=== PATIENT | female | born 1970 | race African-American/Black ===

== ENCOUNTER 2019-05-17 10:38 | Emergency (ER) | payer OTHER ==
[~2019-05-17] VITALS: Ht 154.9 cm; Wt 90.7 kg
[2019-05-17 10:50] VITALS: BP 140/87
[2019-05-17 11:41] LABS: Urine Bacteria NONE SEEN /hpf (None Seen); Urine Blood TRACE /uL (Negative); Urine Hyaline Cast FEW /lpf (0 - 2); Urine Specific Gravity 1.023 (1.001-1.035); Urine WBC <1 /hpf (0 - 5)
== END 2019-05-17 13:24 | disposition home or self-care (01) ==
LOC: ER 10:38
DX: S29.012A Strain of muscle and tendon of back wall of thorax, initial encounter (principal); J45.909 Unspecified asthma, uncomplicated; E11.9 Type 2 diabetes mellitus without complications; E78.5 Hyperlipidemia, unspecified; I10 Essential (primary) hypertension; Z86.73 Personal history of transient ischemic attack (TIA), and cerebral infarction without residual deficits; W01.198A Fall on same level from slipping, tripping and stumbling with subsequent striking against other object, initial encounter; Y93.89 Activity, other specified; Y99.8 Other external cause status; Y92.89 Other specified places as the place of occurrence of the external cause
CPT/HCPCS: 72100; 81001; 81025; 93005

== ENCOUNTER 2019-05-20 09:20 | Emergency (ER) | payer OTHER ==
[~2019-05-20] VITALS: Ht 154.9 cm; Wt 86.2 kg
[2019-05-20 10:06] LABS: Basophils % (auto) 0.9 % (0.0-2.0); Eosinophils # (auto) 0.2 uL; Hemoglobin 13.2 g/dL (12.2-16.2); Lymphocytes # (auto) 1.1 uL; Monocytes # (auto) 0.5 uL
[2019-05-20] MEDS ORDERED: SODIUM CHLORIDE 0.9% 1,000 ML IV ONE (10:06)
[2019-05-20 10:08] LABS: Basophils # (auto) 0.1 uL; Eosinophils % (auto) 2.9 % (0.0-7.0); Hematocrit 41.4 % (36.0-46.0); Lymphocytes % (auto) 18.5 % (10.0-50.0); Mean Corpuscular Volume 81.3 fL (80.0-100.0); Monocytes % (auto) 8.1 % (0.0-12.0); Neutrophils # (auto) 4.1 uL; Neutrophils % (auto) 69.6 % (37.0-80.0); Platelet Count (auto) 215 10^3/uL (140-450); White Blood Cell 5.8 10^3/uL (4.4-10.8)
[2019-05-20] MEDS ORDERED: MECLIZINE HCL 25 MG TAB PO ONE (10:15)
[2019-05-20 10:24] LABS: Albumin 3.4 g/dL (3.4-5.0); Anion Gap 6 (5-15); Blood Urea Nitrogen 10 mg/dL (7-18); Calcium 8.7 mg/dL (8.5-10.1); Carbon Dioxide 30 mmol/L (21-32); Chloride 104 mmol/L (98-107); Glucose 106 mg/dL (74-106); Potassium 3.2 mmol/L (3.5-5.1); Sodium 140 mmol/L (136-145)
[2019-05-20 10:29] LABS: Alanine Aminotransferase 76 U/L (13-56); Alkaline Phosphatase 53 U/L (45-117); Aspartate Aminotransferase 77 U/L (15-37); BUN/Creatinine Ratio 12.3; Bilirubin, Total 0.9 mg/dL (0.2-1.0); GFR African American 97 mL/min; GFR Non-African American 80 mL/min; Total Protein 8.3 g/dL (6.4-8.2)
[2019-05-20 11:44] VITALS: BP 154/90
[2019-05-20] MEDS ORDERED: POTASSIUM EFFERVESENT TAB 25 MEQ PO ONE (13:00)
== END 2019-05-20 13:07 | disposition home or self-care (01) ==
LOC: EDBD 09:20 → EDUNIT# 09:20 → ER 09:20
DX: R42 Dizziness and giddiness (principal); E87.6 Hypokalemia; R06.02 Shortness of breath; R11.2 Nausea with vomiting, unspecified; J45.909 Unspecified asthma, uncomplicated; E11.9 Type 2 diabetes mellitus without complications; E78.00 Pure hypercholesterolemia, unspecified; I10 Essential (primary) hypertension; Z86.73 Personal history of transient ischemic attack (TIA), and cerebral infarction without residual deficits
CPT/HCPCS: 36415; 71045; 80053; 84484; 85025; 93005; 96360; 96361; 99284; J7030; J8597

== ENCOUNTER 2019-08-17 11:03 | Emergency (ER) | payer MEDICAID, OTHER ==
[~2019-08-17] VITALS: Ht 154.9 cm; Wt 86.2 kg
[2019-08-17 11:36] LABS: Basophils # (auto) 0.1 uL; Basophils % (auto) 0.9 % (0.0-2.0); Eosinophils # (auto) 0.1 uL; Eosinophils % (auto) 1.5 % (0.0-7.0); Hematocrit 42.3 % (36.0-46.0); Hemoglobin 13.8 g/dL (12.2-16.2); Lymphocytes % (auto) 22.7 % (10.0-50.0); Mean Corpuscular Hgb Conc. 32.7 g/dL (32.0-36.0); Mean Corpuscular Volume 82.5 fL (80.0-100.0); Monocytes # (auto) 0.7 uL; Neutrophils % (auto) 66.9 % (37.0-80.0); Nucleated Red Blood Cells % 0.1 %; Platelet Count (auto) 234 10^3/uL (140-450); Red Blood Cells 5.12 10^6/uL (4.0-5.20); Red Cell Distribution Width 14.9 % (11.8-14.3)
[2019-08-17 11:59] LABS: Albumin 3.5 g/dL (3.4-5.0); Calcium 8.8 mg/dL (8.5-10.1); Potassium 3.7 mmol/L (3.5-5.1)
[2019-08-17 12:03] LABS: BUN/Creatinine Ratio 14.3; Bilirubin, Total 0.9 mg/dL (0.2-1.0); Total Protein 8.7 g/dL (6.4-8.2)
[2019-08-17 14:05] VITALS: BP 117/74
== END 2019-08-17 14:07 | disposition home or self-care (01) ==
LOC: ER 11:03
DX: R60.0 Localized edema (principal); M79.662 Pain in left lower leg; M79.661 Pain in right lower leg; M79.10 Myalgia, unspecified site; J45.909 Unspecified asthma, uncomplicated; E78.5 Hyperlipidemia, unspecified; Z86.73 Personal history of transient ischemic attack (TIA), and cerebral infarction without residual deficits
CPT/HCPCS: 36415; 80053; 85025; 93005; 93970

== ENCOUNTER → 2019-11-25 | Emergency (ER) | payer MEDICAID ==
[~2019-11-25] VITALS: Ht 154.9 cm; Wt 86.2 kg
[~2019-11-25] MED LIST: ALBUTEROL SULF 2.5 MG/0.5ML(0.5%) NEB SOLN NEB ONE; IPRATROPIUM BROM 0.5 MG/2.5ML INH SOL NEB ONE
[2019-11-25 07:53] VITALS: BP 130/70
== END | disposition home or self-care (01) ==
LOC: ER 06:13
DX: J45.909 Unspecified asthma, uncomplicated (principal); E11.9 Type 2 diabetes mellitus without complications; I10 Essential (primary) hypertension; M19.90 Unspecified osteoarthritis, unspecified site; Z86.73 Personal history of transient ischemic attack (TIA), and cerebral infarction without residual deficits
CPT/HCPCS: 71045; 82962; 94640; 99283; J7644

== ENCOUNTER → 2020-01-15 | Emergency (ER) | payer MEDICAID ==
[~2020-01-15] VITALS: Ht 177.8 cm; Wt 90.7 kg
[~2020-01-15] MED LIST changes: -ALBUTEROL SULF 2.5 MG/0.5ML(0.5%) NEB SOLN NEB ONE; -IPRATROPIUM BROM 0.5 MG/2.5ML INH SOL NEB ONE; +cloNIDine HCL 0.1 MG TAB PO ONE
[2020-01-15 14:03] LABS: Basophils # (auto) 0.1 10 ^3/uL (0-0.2); Eosinophils # (auto) 0 10 ^3/uL (0-0.8); Eosinophils % (auto) 0.5 % (0.0-7.0); Monocytes # (auto) 0.6 10 ^3/uL (0-1.3)
[2020-01-15 14:05] LABS: Basophils % (auto) 0.9 % (0.0-2.0); Hematocrit 44.6 % (36.0-46.0); Hemoglobin 14.4 g/dL (12.2-16.2); Lymphocytes # (auto) 1.2 10 ^3/uL (0.4-5.4); Lymphocytes % (auto) 18.2 % (10.0-50.0); Mean Corpuscular Hemoglobin 26.4 pg (28.0-32.0); Mean Corpuscular Hgb Conc. 32.2 g/dL (32.0-36.0); Monocytes % (auto) 8.9 % (0.0-12.0); Neutrophils # (auto) 4.7 10 ^3/uL (1.6-8.6); Neutrophils % (auto) 71.5 % (37.0-80.0); Nucleated Red Blood Cells % 0.3 %; Platelet Count (auto) 255 10^3/uL (140-450); Red Blood Cells 5.44 10^6/uL (4.0-5.20); Red Cell Distribution Width 16.4 % (11.8-14.3); White Blood Cell 6.6 10^3/uL (4.4-10.8)
[2020-01-15 14:10] LABS: Urine Bacteria NONE SEEN /hpf (None Seen); Urine Blood Negative /uL (Negative); Urine Specific Gravity 1.012 (1.001-1.035); Urine WBC <1 /hpf (0 - 5)
[2020-01-15 14:19] LABS: Albumin 3.5 g/dL (3.4-5.0); Anion Gap 5 (5-15); Blood Urea Nitrogen 9 mg/dL (7-18); Calcium 9.1 mg/dL (8.5-10.1); Carbon Dioxide 27 mmol/L (21-32); Chloride 106 mmol/L (98-107); Glucose 101 mg/dL (74-106); Magnesium 2.1 mg/dL (1.6-2.6); Potassium 4.3 mmol/L (3.5-5.1); Sodium 138 mmol/L (136-145)
[2020-01-15 14:21] LABS: Alanine Aminotransferase 68 U/L (13-56); Alkaline Phosphatase 119 U/L (45-117); Aspartate Aminotransferase 171 U/L (15-37); BUN/Creatinine Ratio 10.3; Bilirubin, Total 1.1 mg/dL (0.2-1.0); GFR African American 89 mL/min; GFR Non-African American 74 mL/min
[2020-01-15 15:00] VITALS: BP 124/70
== END | disposition home or self-care (01) ==
LOC: EDUNIT# 12:44 → EDBD 12:44 → ER 12:44
DX: I10 Essential (primary) hypertension (principal); R07.89 Other chest pain; E86.0 Dehydration; F41.8 Other specified anxiety disorders; R74.0 Nonspecific elevation of levels of transaminase and lactic acid dehydrogenase [LDH]; E11.9 Type 2 diabetes mellitus without complications; J45.909 Unspecified asthma, uncomplicated; Z86.73 Personal history of transient ischemic attack (TIA), and cerebral infarction without residual deficits; Z88.0 Allergy status to penicillin
CPT/HCPCS: 36415; 70450; 71046; 80053; 81001; 83735; 83880; 84484; 85025

== ENCOUNTER 2020-01-17 01:35 | Emergency (ER) | payer MEDICAID ==
[~2020-01-17] VITALS: Ht 154.9 cm; Wt 99.8 kg
[2020-01-17 02:30] LABS: Basophils # (auto) 0 10 ^3/uL (0-0.2); Basophils % (auto) 0.6 % (0.0-2.0); Eosinophils # (auto) 0.1 10 ^3/uL (0-0.8); Eosinophils % (auto) 1.2 % (0.0-7.0); Hematocrit 41.5 % (36.0-46.0); Hemoglobin 13.3 g/dL (12.2-16.2); Lymphocytes # (auto) 1.3 10 ^3/uL (0.4-5.4); Lymphocytes % (auto) 17.6 % (10.0-50.0); Mean Corpuscular Hemoglobin 26.4 pg (28.0-32.0); Mean Corpuscular Hgb Conc. 32.1 g/dL (32.0-36.0); Mean Corpuscular Volume 82.3 fL (80.0-100.0); Monocytes # (auto) 0.6 10 ^3/uL (0-1.3); Monocytes % (auto) 7.4 % (0.0-12.0); Neutrophils # (auto) 5.5 10 ^3/uL (1.6-8.6); Neutrophils % (auto) 73.2 % (37.0-80.0); Nucleated Red Blood Cells % 0.1 %; Platelet Count (auto) 233 10^3/uL (140-450); Red Blood Cells 5.04 10^6/uL (4.0-5.20); Red Cell Distribution Width 16.1 % (11.8-14.3); White Blood Cell 7.5 10^3/uL (4.4-10.8)
[2020-01-17] MEDS ORDERED: SODIUM CHLORIDE 0.9% 1,000 ML IV ONE ×3 (02:30→03:30)
[2020-01-17 02:52] LABS: Albumin 3.1 g/dL (3.4-5.0); Calcium 8.2 mg/dL (8.5-10.1); Potassium 3.8 mmol/L (3.5-5.1)
[2020-01-17 02:57] LABS: BUN/Creatinine Ratio 9.5; Bilirubin, Total 0.8 mg/dL (0.2-1.0); Total Protein 7.8 g/dL (6.4-8.2)
[2020-01-17 05:01] VITALS: BP 142/80
== END 2020-01-17 05:44 | disposition home or self-care (01) ==
LOC: EDBD 01:35 → ER 01:35
DX: S02.32XA Fracture of orbital floor, left side, initial encounter for closed fracture (principal); F10.129 Alcohol abuse with intoxication, unspecified; H10.33 Unspecified acute conjunctivitis, bilateral; Y90.9 Presence of alcohol in blood, level not specified; W18.39XA Other fall on same level, initial encounter; Y93.89 Activity, other specified; Y92.89 Other specified places as the place of occurrence of the external cause; Y99.8 Other external cause status
CPT/HCPCS: 36415; 70450; 71250; 72125; 74176; 80053; 80320; 84702; 85025; 99285; J7030

== ENCOUNTER → 2020-03-03 | Emergency (ER) | payer MEDICAID ==
[~2020-03-03] VITALS: Ht 165.1 cm; Wt 90.7 kg
[~2020-03-03] MED LIST changes: +IOHEXOL 300 MG/ML 100ML BOTTLE IJ ONE; +MORPHINE SULFATE 4 MG/ML SYR/VIAL IV ONE; +ONDANSETRON HCL 4 MG/2 ML VIAL IV ONE; +SODIUM CHLORIDE 0.9% 1,000 ML IV ONE; -cloNIDine HCL 0.1 MG TAB PO ONE
[2020-03-03 04:06] LABS: Urine Bacteria FEW /hpf (None Seen); Urine Blood Negative /uL (Negative); Urine Mucus FEW (None Seen); Urine Specific Gravity 1.011 (1.001-1.035); Urine WBC <1 /hpf (0 - 5)
[2020-03-03 04:59] LABS: Eosinophils # (auto) 0.1 10 ^3/uL (0-0.8); Lymphocytes # (auto) 1.1 10 ^3/uL (0.4-5.4); Monocytes # (auto) 0.5 10 ^3/uL (0-1.3); Red Cell Distribution Width 15.1 % (11.8-14.3)
[2020-03-03 05:02] LABS: Basophils # (auto) 0 10 ^3/uL (0-0.2); Basophils % (auto) 0.8 % (0.0-2.0); Eosinophils % (auto) 1.3 % (0.0-7.0); Hematocrit 43.2 % (36.0-46.0); Lymphocytes % (auto) 20.7 % (10.0-50.0); Mean Corpuscular Hemoglobin 26.8 pg (28.0-32.0); Mean Corpuscular Hgb Conc. 32.5 g/dL (32.0-36.0); Mean Corpuscular Volume 82.6 fL (80.0-100.0); Monocytes % (auto) 8.6 % (0.0-12.0); Neutrophils # (auto) 3.8 10 ^3/uL (1.6-8.6); Neutrophils % (auto) 68.6 % (37.0-80.0); Nucleated Red Blood Cells % 0.1 %; Platelet Count (auto) 228 10^3/uL (140-450); Red Blood Cells 5.24 10^6/uL (4.0-5.20); White Blood Cell 5.5 10^3/uL (4.4-10.8)
[2020-03-03 05:18] LABS: Chloride 108 mmol/L (98-107); Potassium 3.5 mmol/L (3.5-5.1); Sodium 140 mmol/L (136-145)
[2020-03-03 05:21] LABS: Alanine Aminotransferase 69 U/L (13-56); Albumin 3.3 g/dL (3.4-5.0); Amylase 87 U/L (25-115); Anion Gap 11 (5-15); BUN/Creatinine Ratio 12.2; Blood Urea Nitrogen 9 mg/dL (7-18); Calcium 8.5 mg/dL (8.5-10.1); Carbon Dioxide 21 mmol/L (21-32); GFR African American 107 mL/min; GFR Non-African American 89 mL/min; Glucose 101 mg/dL (74-106); Lipase 126 U/L (73-393)
[2020-03-03 05:27] LABS: Alkaline Phosphatase 103 U/L (45-117); Aspartate Aminotransferase 179 U/L (15-37); Bilirubin, Total 0.6 mg/dL (0.2-1.0); Total Protein 8.4 g/dL (6.4-8.2)
[2020-03-03 08:59] VITALS: BP 174/99
== END | disposition home or self-care (01) ==
LOC: EDUNIT# 02:11 → EDBD 02:21 → ER 02:21
DX: K80.20 Calculus of gallbladder without cholecystitis without obstruction (principal); R11.2 Nausea with vomiting, unspecified
CPT/HCPCS: 36415; 74177; 76705; 80053; 81001; 82150; 83605; 83690; 84484; 84702; 85025; 87086; 93005; 96361; 96374; 96375; 99285; J2270; J2405; J7030; Q9967

== ENCOUNTER 2020-06-12 10:25 | Emergency (ER) | payer MEDICAID ==
[~2020-06-12] VITALS: Ht 154.9 cm; Wt 95.7 kg
[2020-06-12] MEDS ORDERED: cloNIDine HCL 0.1 MG TAB PO ONE (12:30)
[2020-06-12] MEDS ORDERED: ACETAMINOPHEN 325 MG TAB PO ONE ×2 (12:44→12:45)
[2020-06-12 14:48] VITALS: BP 158/101
== END 2020-06-12 14:50 | disposition home or self-care (01) ==
LOC: ER 10:25
DX: S13.9XXA Sprain of joints and ligaments of unspecified parts of neck, initial encounter (principal); E78.5 Hyperlipidemia, unspecified; I10 Essential (primary) hypertension; Z88.0 Allergy status to penicillin; W01.0XXA Fall on same level from slipping, tripping and stumbling without subsequent striking against object, initial encounter; Y93.89 Activity, other specified; Y92.89 Other specified places as the place of occurrence of the external cause; Y99.8 Other external cause status
CPT/HCPCS: 70450; 72125; 93005

== ENCOUNTER 2021-01-22 09:46 | Emergency (ER) | payer MEDICAID ==
[~2021-01-22] VITALS: Ht 154.9 cm; Wt 99.8 kg
[2021-01-22 10:25] LABS: Urine Bacteria NONE SEEN /hpf (None Seen); Urine Blood TRACE /uL (Negative); Urine Mucus FEW (None Seen); Urine Specific Gravity 1.022 (1.001-1.035); Urine WBC 1 /hpf (0 - 5)
[2021-01-22 11:02] VITALS: BP 167/96
== END 2021-01-22 11:44 | disposition home or self-care (01) ==
LOC: ER 09:46
DX: M54.16 Radiculopathy, lumbar region (principal); I10 Essential (primary) hypertension; E78.5 Hyperlipidemia, unspecified; J45.909 Unspecified asthma, uncomplicated; Z88.0 Allergy status to penicillin
CPT/HCPCS: 72100; 81001

== ENCOUNTER 2021-09-03 18:48 | Inpatient (IN) | payer MEDICAID ==
[~2021-09-03] VITALS: Ht 154.9 cm; Wt 98.2 kg
[2021-09-03 20:20] LABS: Basophils # (auto) 0 10 ^3/uL (0-0.2); Basophils % (auto) 0.6 % (0.0-2.0); Eosinophils # (auto) 0.1 10 ^3/uL (0-0.8); Eosinophils % (auto) 0.8 % (0.0-7.0); Hematocrit 30.8 % (36.0-46.0); Hemoglobin 9.5 g/dL (12.2-16.2); Lymphocytes # (auto) 1.1 10 ^3/uL (0.4-5.4); Lymphocytes % (auto) 15.2 % (10.0-50.0); Mean Corpuscular Hemoglobin 23.4 pg (28.0-32.0); Mean Corpuscular Hgb Conc. 30.8 g/dL (32.0-36.0); Mean Corpuscular Volume 75.8 fL (80.0-100.0); Monocytes # (auto) 0.6 10 ^3/uL (0-1.3); Monocytes % (auto) 7.7 % (0.0-12.0); Neutrophils # (auto) 5.5 10 ^3/uL (1.6-8.6); Neutrophils % (auto) 75.7 % (37.0-80.0); Nucleated Red Blood Cells % 0.1 %; Red Blood Cells 4.06 10^6/uL (4.0-5.20); Red Cell Distribution Width 17.1 % (11.8-14.3); White Blood Cell 7.3 10^3/uL (4.4-10.8)
[2021-09-03 20:27] LABS: Albumin 3.5 g/dL (3.4-5.0); Calcium 8.7 mg/dL (8.5-10.1); Magnesium 2.5 mg/dL (1.6-2.6); Potassium 3.9 mmol/L (3.5-5.1)
[2021-09-03 20:33] LABS: BUN/Creatinine Ratio 8.1; Bilirubin, Total 0.6 mg/dL (0.2-1.0); Total Protein 8.3 g/dL (6.4-8.2)
[2021-09-04] MEDS ORDERED: hydrALAZINE HCL 20 MG/ML VL IV ONE ×2 (01:30→02:20)
[2021-09-04 01:43] LABS: Urine Bacteria FEW /hpf (None Seen); Urine Blood Negative /uL (Negative); Urine Hyaline Cast FEW /lpf (0 - 2); Urine Mucus FEW (None Seen); Urine Specific Gravity 1.018 (1.001-1.035); Urine WBC 2 /hpf (0 - 5)
[2021-09-04] MEDS ORDERED: TEMAZEPAM 15 MG CAP PO PRN (03:15)
[2021-09-04] MEDS ORDERED: LABETALOL HCL 5 MG/ML 4ML SYRINGE IV ONE (03:15)
[2021-09-04] MEDS ORDERED: ONDANSETRON HCL 4 MG/2 ML VIAL IV PRN (03:15)
[2021-09-04] MEDS: ACETAMINOPHEN 325 MG TAB PO PRN ×2 (03:37→08:45)
[2021-09-04] MEDS ORDERED: CLON0.1T PO (06:55)
[2021-09-04] MEDS ORDERED: ALBUAER3 IN (06:55)
[2021-09-04] MEDS ORDERED: AMLO-489 PO (06:55)
[2021-09-04] MEDS ORDERED: ATEN-60 PO (06:55)
[2021-09-04] MEDS ORDERED: CARI-277 PO (06:57)
[2021-09-04] MEDS ORDERED: VITA100T3 PO (06:57)
[2021-09-04] MEDS ORDERED: LORA-655 PO (06:57)
[2021-09-04] MEDS ORDERED: ASCO500T11 PO (06:57)
[2021-09-04 08:34] VITALS: BP 146/77
[2021-09-04] MEDS: ASPirin 81 mg TAB PO SCH (08:47)
[2021-09-04] MEDS: amLODIPine BESYLATE 5 MG TAB PO SCH (08:49)
[2021-09-04] MEDS: ATENOLOL 50 MG TAB PO SCH (08:49)
[2021-09-04] MEDS: PANTOPRAZOLE 40 MG TAB PO SCH (08:49)
[2021-09-04] MEDS: ENOXAPARIN SOD 40 MG/0.4 ML SYRINGE SC SCH (08:50)
[2021-09-04 13:00] VITALS: BP 147/89
[2021-09-04 17:06] VITALS: BP 161/92
[2021-09-04] MEDS: cloNIDine HCL 0.1 MG TAB PO PRN (17:19)
[2021-09-04] MEDS: ATORVASTATIN 20 MG TAB PO SCH (21:24)
[2021-09-04] MEDS: LISINOPRIL 20 MG TAB PO SCH (21:25)
[2021-09-04 22:00] VITALS: BP 141/95
[2021-09-05] VITALS (7 sets, daily range): BP systolic 140–156; BP diastolic 56–94
[2021-09-05 06:33] LABS: Basophils # (auto) 0 10 ^3/uL (0-0.2); Basophils % (auto) 0.5 % (0.0-2.0); Lymphocytes # (auto) 1.4 10 ^3/uL (0.4-5.4); Neutrophils % (auto) 59.3 % (37.0-80.0); Nucleated Red Blood Cells % 0.1 %
[2021-09-05 06:36] LABS: Eosinophils # (auto) 0.3 10 ^3/uL (0-0.8); Eosinophils % (auto) 4.6 % (0.0-7.0); Hemoglobin 8.9 g/dL (12.2-16.2); Lymphocytes % (auto) 25.8 % (10.0-50.0); Mean Corpuscular Hemoglobin 23.5 pg (28.0-32.0); Mean Corpuscular Hgb Conc. 30.9 g/dL (32.0-36.0); Monocytes # (auto) 0.5 10 ^3/uL (0-1.3); Monocytes % (auto) 9.8 % (0.0-12.0); Neutrophils # (auto) 3.2 10 ^3/uL (1.6-8.6); White Blood Cell 5.5 10^3/uL (4.4-10.8)
[2021-09-05 06:58] LABS: Mean Corpuscular Volume 76.2 fL (80.0-100.0)
[2021-09-05 07:07] LABS: BUN/Creatinine Ratio 10.8; Calcium 8.7 mg/dL (8.5-10.1); Potassium 3.9 mmol/L (3.5-5.1)
[2021-09-05] MEDS: ATENOLOL 50 MG TAB PO SCH (10:15)
[2021-09-05] MEDS: amLODIPine BESYLATE 5 MG TAB PO SCH (10:15)
[2021-09-05] MEDS: ASPirin 81 mg TAB PO SCH (10:15)
[2021-09-05] MEDS: PANTOPRAZOLE 40 MG TAB PO SCH (10:15)
[2021-09-05] MEDS: LISINOPRIL 20 MG TAB PO SCH ×2 (10:16→22:27)
[2021-09-05] MEDS: ENOXAPARIN SOD 40 MG/0.4 ML SYRINGE SC SCH (10:16)
[2021-09-05 11:34] LABS: Cholesterol 167 mg/dL (< 200)
[2021-09-05 11:37] LABS: HDL Cholesterol 40 mg/dL (40-59); LDL Cholesterol 96 mg/dL (< 100); Triglycerides 164 mg/dL (< 150)
[2021-09-05] MEDS: ACETAMINOPHEN 325 MG TAB PO PRN (18:22)
[2021-09-05] MEDS: cloNIDine HCL 0.1 MG TAB PO PRN (18:22)
[2021-09-05] MEDS: ATORVASTATIN 20 MG TAB PO SCH (22:27)
[2021-09-06] MEDS: ACETAMINOPHEN 325 MG TAB PO PRN (04:52)
[2021-09-06 05:00] VITALS: BP 146/90
[2021-09-06 08:00] VITALS: BP 135/72
[2021-09-06 09:00] VITALS: BP 135/72
[2021-09-06] MEDS: ASPirin 81 mg TAB PO SCH (09:57)
[2021-09-06] MEDS: ATENOLOL 50 MG TAB PO SCH (09:58)
[2021-09-06] MEDS: ENOXAPARIN SOD 40 MG/0.4 ML SYRINGE SC SCH (09:58)
[2021-09-06] MEDS: LISINOPRIL 20 MG TAB PO SCH (09:58)
[2021-09-06] MEDS: PANTOPRAZOLE 40 MG TAB PO SCH (09:58)
[2021-09-06] MEDS: amLODIPine BESYLATE 5 MG TAB PO SCH (09:58)
[2021-09-06 13:00] VITALS: BP 128/69
[2021-09-06 13:12] VITALS: BP 135/72
== END 2021-09-06 15:20 | disposition home or self-care (01) | DRG 198 ==
LOC: ER 18:50 → OVERFLOW 09-04 03:13 → WEST WING 09-04 05:55 → TELE-WESTW 09-05 21:49
PROVIDERS: ADMIT Nurse Practitioner; ATTEND Family Medicine
DX: I20.0 Unstable angina (principal); D64.9 Anemia, unspecified; E66.01 Morbid (severe) obesity due to excess calories; E78.5 Hyperlipidemia, unspecified; F12.90 Cannabis use, unspecified, uncomplicated; I10 Essential (primary) hypertension; J45.909 Unspecified asthma, uncomplicated; E78.00 Pure hypercholesterolemia, unspecified; F41.9 Anxiety disorder, unspecified; Z20.822 Contact with and (suspected) exposure to COVID-19; K57.90 Diverticulosis of intestine, part unspecified, without perforation or abscess without bleeding; Z80.0 Family history of malignant neoplasm of digestive organs; Z82.49 Family history of ischemic heart disease and other diseases of the circulatory system; Z88.5 Allergy status to narcotic agent; Z88.8 Allergy status to other drugs, medicaments and biological substances; Z68.41 Body mass index [BMI] 40.0-44.9, adult; Z88.0 Allergy status to penicillin
CPT/HCPCS: 36415; 71045; 74176; 80048; 80053; 80061; 81001; 83735; 84443; 84484; 85025; 87426; 93005; 93306; 96374; 96375; 96376; 99291; G0378; J3490

== ENCOUNTER 2023-12-25 06:25 | Inpatient (IN) | payer MEDICAID ==
[~2023-12-25] VITALS: Ht 154.9 cm; Wt 101.9 kg
[~2023-12-25 06:25] MED LIST changes: +ALBUAER3 IN; +AMLO1TAB22 PO; +ASCO500T11 PO; +ATEN-60 PO; +CARI-277 PO; +CLON0.1T PO; -IOHEXOL 300 MG/ML 100ML BOTTLE IJ ONE; +LORA-655 PO; -MORPHINE SULFATE 4 MG/ML SYR/VIAL IV ONE; -ONDANSETRON HCL 4 MG/2 ML VIAL IV ONE; -SODIUM CHLORIDE 0.9% 1,000 ML IV ONE; +VITA100T3 PO
[2023-12-25 07:02] LABS: Eosinophils # (auto) 0.3 10 ^3/uL (0-0.8); Neutrophils # (auto) 2.7 10 ^3/uL (1.6-8.6); Neutrophils % (auto) 41.8 % (37.0-80.0); White Blood Cell 6.5 10^3/uL (4.4-10.8)
[2023-12-25 07:05] LABS: Basophils # (auto) 0.1 10 ^3/uL (0-0.2); Basophils % (auto) 0.8 % (0.0-2.0); Hemoglobin 14.3 g/dL (12.2-16.2); Lymphocytes # (auto) 2.8 10 ^3/uL (0.4-5.4); Lymphocytes % (auto) 42.4 % (10.0-50.0); Mean Corpuscular Hemoglobin 25.8 pg (28.0-32.0); Mean Corpuscular Hgb Conc. 31.7 g/dL (32.0-36.0); Mean Corpuscular Volume 81.3 fL (80.0-100.0); Monocytes # (auto) 0.7 10 ^3/uL (0-1.3); Nucleated Red Blood Cells % 0.3 %; Red Blood Cells 5.54 10^6/uL (4.0-5.20); Red Cell Distribution Width 15.2 % (11.8-14.3)
[2023-12-25 07:27] LABS: Alanine Aminotransferase 58 U/L (7-40); Albumin 4.5 g/dL (3.2-4.8); Alkaline Phosphatase 94 U/L (46-116); Anion Gap 11 (5-15); Aspartate Aminotransferase 110 U/L (13-40); BUN/Creatinine Ratio 6.6 (10.0-20.0); Bilirubin, Total 0.5 mg/dL (0.2-1.0); Blood Urea Nitrogen 6 mg/dL (9-23); Calcium 9.3 mg/dL (8.5-10.1); Carbon Dioxide 21 mmol/L (20-30); Chloride 108 mmol/L (98-107); Glucose 113 mg/dL (74-106); Potassium 3.7 mmol/L (3.5-5.1); Sodium 140 mmol/L (136-145)
[2023-12-25] MEDS: NITROGLYCERIN 0.4 MG SL TAB SL ONE (08:25)
[2023-12-25] MEDS: ASPirin 325 MG TAB PO ONE (08:26)
[2023-12-25] MEDS: ONDANSETRON HCL 4 MG/2 ML VIAL IV ONE (08:34)
[2023-12-25] MEDS: MORPHINE SULFATE INJ 2 MG/ml SYRG IV ONE (08:35)
[2023-12-25] MEDS ORDERED: ONDANSETRON HCL 4 MG/2 ML VIAL IV PRN (11:15)
[2023-12-25] MEDS ORDERED: LORazepam 0.5 MG TAB PO PRN (11:15)
[2023-12-25] MEDS ORDERED: MORPHINE SULFATE INJ 2 MG/ml SYRG IV PRN (11:15)
[2023-12-25] MEDS ORDERED: NITROGLYCERIN 0.4 MG SL TAB SL PRN (11:15)
[2023-12-25] MEDS ORDERED: ALBUTEROL SULF 2.5 MG/0.5ML(0.5%) NEB SOLN NEB PRN (11:15)
[2023-12-25] MEDS ORDERED: CARISOPRODOL 350 MG TAB PO PRN (12:00)
[2023-12-25] MEDS: SODIUM CHLORIDE 0.9% 1,000 ML IV SCH (12:04)
[2023-12-25] MEDS: PANTOPRAZOLE 40 MG/10 ML VIAL INJ IV ONE (12:07)
[2023-12-25 12:20] LABS: LDL Cholesterol 123 mg/dL (< 100); Triglycerides 222 mg/dL (< 150)
[2023-12-25 12:22] LABS: Cholesterol 204 mg/dL (< 200); HDL Cholesterol 64 mg/dL (40-59)
[2023-12-25] MEDS: HYDROcodone-ACET 5/325MG TAB PO PRN (13:15)
[2023-12-25 18:14] VITALS: BP 154/88; PULSE 78; RESP 19; O2SAT 95
[2023-12-25 22:08] VITALS: O2SAT 99
[2023-12-25] MEDS: cloNIDine HCL 0.1 MG TAB PO SCH (22:34)
[2023-12-26 05:40] LABS: Basophils # (auto) 0 10 ^3/uL (0-0.2); Eosinophils # (auto) 0.1 10 ^3/uL (0-0.8); Hemoglobin 13.4 g/dL (12.2-16.2); Lymphocytes # (auto) 1.6 10 ^3/uL (0.4-5.4); Mean Corpuscular Hemoglobin 26.1 pg (28.0-32.0); Nucleated Red Blood Cells % 0.1 %; Red Cell Distribution Width 15.3 % (11.8-14.3); White Blood Cell 7.6 10^3/uL (4.4-10.8)
[2023-12-26 05:42] LABS: Basophils % (auto) 0.6 % (0.0-2.0); Eosinophils % (auto) 1.4 % (0.0-7.0); Hematocrit 41.7 % (36.0-46.0); Lymphocytes % (auto) 21.6 % (10.0-50.0); Mean Corpuscular Hgb Conc. 32.2 g/dL (32.0-36.0); Mean Corpuscular Volume 81.2 fL (80.0-100.0); Monocytes # (auto) 0.7 10 ^3/uL (0-1.3); Monocytes % (auto) 9.9 % (0.0-12.0); Neutrophils % (auto) 66.5 % (37.0-80.0); Red Blood Cells 5.13 10^6/uL (4.0-5.20)
[2023-12-26 05:57] LABS: Alanine Aminotransferase 36 U/L (7-40); Albumin 4.1 g/dL (3.2-4.8); Alkaline Phosphatase 79 U/L (46-116); Anion Gap 11 (5-15); Aspartate Aminotransferase 56 U/L (13-40); BUN/Creatinine Ratio 8.6 (10.0-20.0); Blood Urea Nitrogen 7 mg/dL (9-23); Calcium 9.6 mg/dL (8.5-10.1); Carbon Dioxide 22 mmol/L (20-30); Chloride 104 mmol/L (98-107); Glucose 107 mg/dL (74-106); Potassium 3.8 mmol/L (3.5-5.1); Sodium 137 mmol/L (136-145)
[2023-12-26 05:58] LABS: Bilirubin, Total 1.1 mg/dL (0.2-1.0); Total Protein 7.4 g/dL (5.7-8.2)
[2023-12-26 06:28] LABS: Amphetamine Screen, Urine Neg (NEGATIVE)
[2023-12-26 06:29] LABS: Barbiturate Scree,Urine Neg (NEGATIVE); Benzodiazephine Screen, Urine Neg (NEGATIVE); Cannabinoid Screen, Urine Neg (NEGATIVE); Cocaine Screen, Urine Neg (NEGATIVE); Opiate Scree,Urine Neg (NEGATIVE); Phencyclidine Screen, Urine Neg (NEGATIVE)
[2023-12-26 06:45] VITALS: O2SAT 94
[2023-12-26 08:00] VITALS: PULSE 73; RESP 16; O2SAT 93
[2023-12-26] MEDS: amLODIPine BESYLATE 5 MG TAB PO SCH (09:26)
[2023-12-26] MEDS: ASPirin 81 mg TAB PO SCH (09:26)
[2023-12-26] MEDS: PANTOPRAZOLE 40 MG/10 ML VIAL INJ IV SCH (09:26)
[2023-12-26] MEDS: ATENOLOL 25 MG TAB PO SCH (09:27)
[2023-12-26] MEDS: ENOXAPARIN SOD 40 MG/0.4 ML SYRINGE SC SCH (09:27)
[2023-12-26] MEDS: ASCORBIC ACID 500 MG TAB PO SCH (09:35)
[2023-12-26] MEDS: ACETAMINOPHEN 325 MG TAB PO PRN (11:38)
[2023-12-26] MEDS: hydrALAZINE HCL 20 MG/ML VL IV PRN (12:42)
[2023-12-26] MEDS ORDERED: MAALOX PLUS or MAALOX 30 ML PO PRN (13:30)
[2023-12-26 19:53] VITALS: BP 149/94; PULSE 99; RESP 18; TEMP 98.5; O2SAT 98
[2023-12-26 20:00] VITALS: BP 164/94; PULSE 101; PULSE 80; RESP 21; TEMP 98.3; O2SAT 100
[2023-12-26 20:15] VITALS: PULSE 77; RESP 18; O2SAT 98
[2023-12-27] VITALS (8 sets, daily range): BP systolic 133–156; BP diastolic 76–90; PULSE 70–92; RESP 16–19; TEMP 97.9–98.5; O2SAT 98–100
[2023-12-27] MEDS ORDERED: PANT40TA2 PO (11:23)
== END 2023-12-27 13:40 | disposition home or self-care (01) | DRG 243 ==
LOC: ER 06:25 → TELE 11:12 → TELE-WESTW 12-26 19:00
PROVIDERS: ADMIT Nurse Practitioner Family; ATTEND Internal Medicine Geriatric Medicine
DX: K21.9 Gastro-esophageal reflux disease without esophagitis (principal); K76.0 Fatty (change of) liver, not elsewhere classified; E66.01 Morbid (severe) obesity due to excess calories; J45.909 Unspecified asthma, uncomplicated; Z68.41 Body mass index [BMI] 40.0-44.9, adult; E78.5 Hyperlipidemia, unspecified; I16.0 Hypertensive urgency; R74.01 Elevation of levels of liver transaminase levels; F41.9 Anxiety disorder, unspecified; Z88.0 Allergy status to penicillin; Z88.8 Allergy status to other drugs, medicaments and biological substances; Z82.49 Family history of ischemic heart disease and other diseases of the circulatory system; Z83.3 Family history of diabetes mellitus; Z79.899 Other long term (current) drug therapy
CPT/HCPCS: 36415; 71045; 76705; 80053; 80061; 80307; 82962; 83735; 83880; 84443; 84484; 85025; 93005; 93306; 96374; 96375; 99291; C9113; G0378; J2405

== ENCOUNTER 2024-04-06 12:14 | Inpatient (IN) | payer MEDICAID ==
[~2024-04-06] VITALS: Ht 154.9 cm; Wt 105.4 kg
[2024-04-06] VITALS (7 sets, daily range): BP systolic 145–175; BP diastolic 91–103; PULSE 71–116; RESP 18–20; TEMP 97.4–98.6; O2SAT 95–100
[~2024-04-06 12:14] MED LIST changes: +PANT40TA2 PO
[2024-04-06 13:03] LABS: Eosinophils # (auto) 0 10 ^3/uL (0-0.8); Eosinophils % (auto) 0.1 % (0.0-7.0); Lymphocytes # (auto) 1.6 10 ^3/uL (0.4-5.4); Monocytes # (auto) 0.3 10 ^3/uL (0-1.3); Nucleated Red Blood Cells % 0.1 %
[2024-04-06 13:08] LABS: Basophils # (auto) 0.1 10 ^3/uL (0-0.2); Basophils % (auto) 0.7 % (0.0-2.0); Hematocrit 44.4 % (36.0-46.0); Hemoglobin 14.5 g/dL (12.2-16.2); Lymphocytes % (auto) 17.9 % (10.0-50.0); Mean Corpuscular Hemoglobin 26.6 pg (28.0-32.0); Mean Corpuscular Hgb Conc. 32.7 g/dL (32.0-36.0); Mean Corpuscular Volume 81.3 fL (80.0-100.0); Monocytes % (auto) 3.2 % (0.0-12.0); Neutrophils # (auto) 7.1 10 ^3/uL (1.6-8.6); Neutrophils % (auto) 78.1 % (37.0-80.0); Red Blood Cells 5.47 10^6/uL (4.0-5.20); Red Cell Distribution Width 16.2 % (11.8-14.3); White Blood Cell 9.1 10^3/uL (4.4-10.8)
[2024-04-06 13:33] LABS: Alanine Aminotransferase 57 U/L (7-40); Albumin 4.7 g/dL (3.2-4.8); Alkaline Phosphatase 86 U/L (46-116); Anion Gap 13 (5-15); Aspartate Aminotransferase 114 U/L (13-40); Bilirubin, Total 0.8 mg/dL (0.2-1.0); Blood Urea Nitrogen 6 mg/dL (9-23); Calcium 9.9 mg/dL (8.7-10.4); Carbon Dioxide 22 mmol/L (20-30); Chloride 104 mmol/L (98-107); Glucose 129 mg/dL (74-106); Potassium 3.8 mmol/L (3.5-5.1); Sodium 139 mmol/L (136-145); Total Protein 8.7 g/dL (5.7-8.2)
[2024-04-06 15:29] LABS: Urine Bacteria MANY /hpf (None Seen); Urine Blood 1+ /uL (Negative); Urine Clarity Turbid (Clear); Urine Color Light-Orange (Yellow); Urine Mucus FEW (None Seen); Urine Protein, UAD 1+ (Negative); Urine Specific Gravity 1.024 (1.001-1.035); Urine Urobilinogen Normal (Negative); Urine WBC 10 /hpf (0 - 5); Urine pH 5.5 (5.0-9.0)
[2024-04-06] MEDS ORDERED: NITROGLYCERIN 0.4 MG SL TAB SL PRN (17:00)
[2024-04-06] MEDS: IPRATROPIUM BROM 0.5 MG/2.5ML INH SOL NEB ONE (17:00)
[2024-04-06] MEDS: ALBUTEROL SULF 2.5 MG/0.5ML(0.5%) NEB SOLN NEB ONE (17:00)
[2024-04-06 19:23] LABS: INR 1.03 (0.9-1.15); Prothrombin Time 10.9 sec (9.3-11.8)
[2024-04-06] MEDS: LORazepam 2MG/ML-1ML VIAL IV ONE (19:24)
[2024-04-06] MEDS: guaiFENesin-CODEINE Liq 5 ML UD PO ONE (19:25)
[2024-04-06] MEDS: methylPREDNISolone SOD SUCC 125 MG/2 ML VL IV ONE (19:25)
[2024-04-06] MEDS: ENOXAPARIN SOD 100 MG/1 ML SYRINGE SC SCH (19:25)
[2024-04-06] MEDS: SODIUM CHLORIDE 0.9% 1,000 ML IV SCH (19:33)
[2024-04-06] MEDS: ATENOLOL 25 MG TAB PO SCH (20:59)
[2024-04-06] MEDS: cloNIDine HCL 0.1 MG TAB PO SCH (21:00)
[2024-04-06] MEDS ORDERED: guaiFENesin-CODEINE Liq 5 ML UD PO PRN (22:00)
[2024-04-06] MEDS: IPRATROPIUM BROM 0.5 MG/2.5ML INH SOL NEB SCH (22:26)
[2024-04-06] MEDS: ALBUTEROL SULF 2.5 MG/0.5ML(0.5%) NEB SOLN NEB SCH (22:26)
[2024-04-06] MEDS: methylPREDNISolone SOD SUCC 125 MG/2 ML VL IV SCH (22:35)
[2024-04-06] MEDS: MORPHINE SULFATE INJ 2 MG/ml SYRG IV PRN (22:36)
[2024-04-06] MEDS ORDERED: LORazepam 2MG/ML-1ML VIAL IV PRN (23:00)
[2024-04-07] VITALS (20 sets, daily range): BP systolic 131–158; BP diastolic 69–81; PULSE 57–94; RESP 16–20; TEMP 97.2–98.1; O2SAT 94–100
[2024-04-07] MEDS: ACETAMINOPHEN 325 MG TAB PO PRN (04:29)
[2024-04-07 08:35] LABS: Basophils # (auto) 0 10 ^3/uL (0-0.2); Basophils % (auto) 0.3 % (0.0-2.0); Eosinophils # (auto) 0 10 ^3/uL (0-0.8); Hematocrit 41.5 % (36.0-46.0); Hemoglobin 13.5 g/dL (12.2-16.2); Lymphocytes # (auto) 0.6 10 ^3/uL (0.4-5.4); Lymphocytes % (auto) 7.5 % (10.0-50.0); Mean Corpuscular Hemoglobin 26.5 pg (28.0-32.0); Mean Corpuscular Hgb Conc. 32.4 g/dL (32.0-36.0); Mean Corpuscular Volume 81.7 fL (80.0-100.0); Monocytes # (auto) 0.1 10 ^3/uL (0-1.3); Monocytes % (auto) 1.7 % (0.0-12.0); Neutrophils % (auto) 90.5 % (37.0-80.0); Red Blood Cells 5.08 10^6/uL (4.0-5.20); Red Cell Distribution Width 16.1 % (11.8-14.3); White Blood Cell 7.7 10^3/uL (4.4-10.8)
[2024-04-07 08:51] LABS: Alanine Aminotransferase 40 U/L (7-40); Albumin 4.1 g/dL (3.2-4.8); Alkaline Phosphatase 72 U/L (46-116); Anion Gap 8 (5-15); Aspartate Aminotransferase 35 U/L (13-40); BUN/Creatinine Ratio 8.4 (10.0-20.0); Bilirubin, Total 0.8 mg/dL (0.2-1.0); Blood Urea Nitrogen 7 mg/dL (9-23); Carbon Dioxide 25 mmol/L (20-30); Chloride 105 mmol/L (98-107); Glucose 189 mg/dL (74-106); Potassium 4.1 mmol/L (3.5-5.1); Sodium 138 mmol/L (136-145); Total Protein 7.6 g/dL (5.7-8.2)
[2024-04-07] MEDS ORDERED: ATENOLOL 25 MG TAB PO SCH (10:00)
[2024-04-07] MEDS: ASCORBIC ACID 500 MG TAB PO SCH (10:37)
[2024-04-07] MEDS: amLODIPine BESYLATE 5 MG TAB PO SCH (10:37)
[2024-04-07] MEDS: PANTOPRAZOLE 40 MG TAB PO SCH (10:37)
[2024-04-07] MEDS ORDERED: LORazepam 0.5 MG TAB PO PRN (16:45)
[2024-04-07 18:22] LABS: Rapid Influenza A Negative (Negative); Rapid Influenza B Negative (Negative)
[2024-04-07 18:27] LABS: COVID19 ANTIGEN SOFIA FIA NEGATIVE (NEGATIVE)
[2024-04-07] MEDS: methylPREDNISolone SOD SUCC 40 MG/ML VL IV SCH (22:00)
[2024-04-08] VITALS (21 sets, daily range): BP systolic 124–148; BP diastolic 78–103; PULSE 54–94; RESP 16–20; TEMP 97.8–98.7; O2SAT 90–100
[2024-04-08] MEDS: DOCUSATE SOD 100 MG CAP PO PRN (05:49)
[2024-04-08] MEDS: ONDANSETRON HCL 4 MG/2 ML VIAL IV PRN (06:05)
[2024-04-08 08:01] LABS: Alanine Aminotransferase 32 U/L (7-40); Albumin 3.7 g/dL (3.2-4.8); Alkaline Phosphatase 62 U/L (46-116); Anion Gap 8 (5-15); Aspartate Aminotransferase 24 U/L (13-40); BUN/Creatinine Ratio 7.8 (10.0-20.0); Bilirubin, Total 0.7 mg/dL (0.2-1.0); Blood Urea Nitrogen 6 mg/dL (9-23); Calcium 9.3 mg/dL (8.7-10.4); Carbon Dioxide 21 mmol/L (20-30); Chloride 108 mmol/L (98-107); Glucose 104 mg/dL (74-106); Potassium 4.1 mmol/L (3.5-5.1); Sodium 137 mmol/L (136-145); Total Protein 7.1 g/dL (5.7-8.2)
[2024-04-08 08:36] LABS: Basophils # (auto) 0 10 ^3/uL (0-0.2); Basophils % (auto) 0.4 % (0.0-2.0); Eosinophils # (auto) 0 10 ^3/uL (0-0.8); Eosinophils % (auto) 0.2 % (0.0-7.0); Hematocrit 44.7 % (36.0-46.0); Hemoglobin 13.9 g/dL (12.2-16.2); Lymphocytes # (auto) 1.6 10 ^3/uL (0.4-5.4); Lymphocytes % (auto) 16.3 % (10.0-50.0); Mean Corpuscular Hemoglobin 26.2 pg (28.0-32.0); Mean Corpuscular Volume 84.3 fL (80.0-100.0); Monocytes # (auto) 0.9 10 ^3/uL (0-1.3); Monocytes % (auto) 9.4 % (0.0-12.0); Neutrophils # (auto) 7.1 10 ^3/uL (1.6-8.6); Neutrophils % (auto) 73.7 % (37.0-80.0); Nucleated Red Blood Cells % 0.2 %; Red Cell Distribution Width 16.6 % (11.8-14.3); White Blood Cell 9.6 10^3/uL (4.4-10.8)
[2024-04-08] MEDS: ENOXAPARIN SOD 40 MG/0.4 ML SYRINGE SC SCH (09:22)
[2024-04-08] MEDS ORDERED: ASCO500T11 PO (11:52)
[2024-04-08] MEDS ORDERED: BUDE1AER5 IN (11:52)
[2024-04-08] MEDS ORDERED: ALBUAER3 IN (11:52)
[2024-04-08] MEDS ORDERED: PRED20TA2 PO (11:52)
[2024-04-08] MEDS ORDERED: ASPI-325 PO (11:52)
[2024-04-09] VITALS (13 sets, daily range): BP systolic 134–172; BP diastolic 74–94; PULSE 50–98; RESP 18–22; TEMP 97.7–98.2; O2SAT 93–100
[2024-04-09 07:09] LABS: Basophils # (auto) 0 10 ^3/uL (0-0.2); Eosinophils # (auto) 0 10 ^3/uL (0-0.8); Lymphocytes # (auto) 0.6 10 ^3/uL (0.4-5.4); Monocytes # (auto) 0.4 10 ^3/uL (0-1.3); Neutrophils # (auto) 8.9 10 ^3/uL (1.6-8.6); Nucleated Red Blood Cells % 0.1 %; White Blood Cell 9.9 10^3/uL (4.4-10.8)
[2024-04-09 07:19] LABS: Hematocrit 40.1 % (36.0-46.0); Lymphocytes % (auto) 6.4 % (10.0-50.0); Mean Corpuscular Hemoglobin 26.6 pg (28.0-32.0); Mean Corpuscular Hgb Conc. 32.4 g/dL (32.0-36.0); Monocytes % (auto) 3.6 % (0.0-12.0); Red Blood Cells 4.89 10^6/uL (4.0-5.20); Red Cell Distribution Width 16.1 % (11.8-14.3)
[2024-04-09 07:47] LABS: Alanine Aminotransferase 27 U/L (7-40); Albumin 3.8 g/dL (3.2-4.8); Alkaline Phosphatase 62 U/L (46-116); Anion Gap 9 (5-15); Aspartate Aminotransferase 12 U/L (13-40); Bilirubin, Total 0.6 mg/dL (0.2-1.0); Blood Urea Nitrogen 12 mg/dL (9-23); Carbon Dioxide 23 mmol/L (20-30); Chloride 103 mmol/L (98-107); Glucose 198 mg/dL (74-106); Potassium 4.5 mmol/L (3.5-5.1); Sodium 135 mmol/L (136-145)
[2024-04-09 07:49] LABS: Calcium 9.8 mg/dL (8.7-10.4)
[2024-04-09] MEDS ORDERED: ALBUTEROL SULF 2.5 MG/0.5ML(0.5%) NEB SOLN NEB PRN (09:00)
[2024-04-09] MEDS ORDERED: IPRATROPIUM BROM 0.5 MG/2.5ML INH SOL NEB PRN (09:00)
[2024-04-09] MEDS: hydrALAZINE HCL 20 MG/ML VL IV PRN (10:12)
[2024-04-10 01:20] VITALS: BP 135/82; PULSE 56; RESP 20; TEMP 97.8; O2SAT 95
[2024-04-10 05:00] VITALS: BP 145/98; PULSE 63; RESP 20; TEMP 97.8; O2SAT 96
[2024-04-10 09:00] VITALS: BP_SYST 104; BP_SYST 129; BP_DIAS 74; BP_DIAS 76; PULSE 56; PULSE 89; RESP 15; RESP 16; TEMP 97.9; TEMP 98.2; O2SAT 94; O2SAT 96
[2024-04-10 10:45] VITALS: O2SAT 99
[2024-04-10 12:55] VITALS: BP 140/92; PULSE 79; RESP 15; TEMP 97.9; O2SAT 96
== END 2024-04-10 14:45 | disposition home or self-care (01) | DRG 141 ==
LOC: ER 12:14 → TELE 16:59 → TELE-CENTR 22:04 → CENTRAL 04-10 04:09
PROVIDERS: ADMIT Internal Medicine Pulmonary Disease; ATTEND Internal Medicine Pulmonary Disease
DX: J45.901 Unspecified asthma with (acute) exacerbation (principal); J96.00 Acute respiratory failure, unspecified whether with hypoxia or hypercapnia; E78.5 Hyperlipidemia, unspecified; F41.9 Anxiety disorder, unspecified; I10 Essential (primary) hypertension; R74.01 Elevation of levels of liver transaminase levels; Z20.822 Contact with and (suspected) exposure to COVID-19; J98.4 Other disorders of lung; Z88.0 Allergy status to penicillin; Z88.8 Allergy status to other drugs, medicaments and biological substances; Z83.3 Family history of diabetes mellitus; Z98.891 History of uterine scar from previous surgery; Z59.00 Homelessness unspecified
CPT/HCPCS: 36415; 71045; 80053; 81001; 83036; 83735; 84311; 84443; 84484; 85025; 85379; 85610; 87081; 87426; 87804; 93005; 94640; G0378; J2405

== ENCOUNTER 2024-05-30 09:50 | Inpatient (IN) | payer MEDICAID ==
[~2024-05-30] VITALS: Ht 154.9 cm; Wt 108.4 kg
[~2024-05-30 09:50] MED LIST changes: +ASPI-325 PO; +BUDE1AER5 IN; +PRED20TA2 PO
[2024-05-30] MEDS: SODIUM CHLORIDE 0.9% 1,000 ML IV ONE (10:15)
[2024-05-30 10:56] LABS: Chloride 108 mmol/L (98-107); Potassium 3.9 mmol/L (3.5-5.1); Sodium 141 mmol/L (136-145)
[2024-05-30 10:57] LABS: Anion Gap 9 (5-15); Calcium 9.9 mg/dL (8.7-10.4); Carbon Dioxide 24 mmol/L (20-30)
[2024-05-30 11:02] LABS: BUN/Creatinine Ratio 9.5 (10.0-20.0); Basophils # (auto) 0.1 10 ^3/uL (0-0.2); Blood Urea Nitrogen 8 mg/dL (9-23); Eosinophils # (auto) 0.2 10 ^3/uL (0-0.8); Glucose 119 mg/dL (74-106); Monocytes # (auto) 0.7 10 ^3/uL (0-1.3); Neutrophils # (auto) 6.3 10 ^3/uL (1.6-8.6); Nucleated Red Blood Cells % 0.1 %; White Blood Cell 8.8 10^3/uL (4.4-10.8)
[2024-05-30] MEDS: ALBUTEROL SULF 2.5 MG/0.5ML(0.5%) NEB SOLN NEB ONE (11:03)
[2024-05-30] MEDS: IPRATROPIUM BROM 0.5 MG/2.5ML INH SOL NEB ONE (11:03)
[2024-05-30 11:04] LABS: Basophils % (auto) 0.7 % (0.0-2.0); Hematocrit 44.1 % (36.0-46.0); Hemoglobin 14.9 g/dL (12.2-16.2); Lymphocytes # (auto) 1.6 10 ^3/uL (0.4-5.4); Lymphocytes % (auto) 17.9 % (10.0-50.0); Mean Corpuscular Hemoglobin 27.5 pg (28.0-32.0); Mean Corpuscular Hgb Conc. 33.7 g/dL (32.0-36.0); Mean Corpuscular Volume 81.4 fL (80.0-100.0); Monocytes % (auto) 7.7 % (0.0-12.0); Neutrophils % (auto) 71.7 % (37.0-80.0); Platelet Count (auto) 268 10^3/uL (140-450); Red Blood Cells 5.42 10^6/uL (4.0-5.20); Red Cell Distribution Width 16.2 % (11.8-14.3)
[2024-05-30] MEDS: methylPREDNISolone SOD SUCC 125 MG/2 ML VL IV ONE (12:23)
[2024-05-30] MEDS: AZITHROMYCIN 250 MG TAB PO ONE (12:23)
[2024-05-30] MEDS ORDERED: ONDANSETRON HCL 4 MG/2 ML VIAL IV PRN (15:45)
[2024-05-30] MEDS ORDERED: DEXTROSE (50%) 50ML SYRG IV PRN (16:15)
[2024-05-30] MEDS: ACCU-CHEK COMFORT CURVE STRIP VI SCH (17:00)
[2024-05-30] MEDS: InsuLIN REG 1unit/0.01ml Soln (100units/ml) SC SCH (17:00)
[2024-05-30] MEDS: IPRATROPIUM BROM 0.5 MG/2.5ML INH SOL NEB SCH (19:14)
[2024-05-30] MEDS: ALBUTEROL SULF 2.5 MG/0.5ML(0.5%) NEB SOLN NEB SCH (19:14)
[2024-05-30 19:50] VITALS: BP 164/94; PULSE 107; RESP 18; TEMP 98.1; O2SAT 100
[2024-05-30] MEDS: LORazepam 0.5 MG TAB PO PRN (21:25)
[2024-05-30] MEDS ORDERED: cloNIDine HCL 0.1 MG TAB PO SCH (22:00)
[2024-05-30] MEDS: cloNIDine HCL 0.1 MG TAB PO SCH (22:00)
[2024-05-30 23:42] VITALS: BP 145/88; PULSE 86; RESP 18; TEMP 97.7; O2SAT 99
[2024-05-31] VITALS (23 sets, daily range): BP systolic 136–149; BP diastolic 74–91; PULSE 54–107; RESP 16–20; TEMP 97.6–98.6; O2SAT 94–100
[2024-05-31] MEDS: HYDROcodone-ACET 5/325MG TAB PO PRN (01:49)
[2024-05-31 06:11] LABS: Basophils # (auto) 0 10 ^3/uL (0-0.2); Basophils % (auto) 0.5 % (0.0-2.0); Eosinophils # (auto) 0 10 ^3/uL (0-0.8); Hematocrit 41.3 % (36.0-46.0); Hemoglobin 13.6 g/dL (12.2-16.2); Lymphocytes # (auto) 1.2 10 ^3/uL (0.4-5.4); Lymphocytes % (auto) 13.3 % (10.0-50.0); Monocytes # (auto) 0.6 10 ^3/uL (0-1.3); Monocytes % (auto) 6.5 % (0.0-12.0); Neutrophils # (auto) 7.4 10 ^3/uL (1.6-8.6); Neutrophils % (auto) 79.7 % (37.0-80.0); Platelet Count (auto) 244 10^3/uL (140-450); Red Blood Cells 5.04 10^6/uL (4.0-5.20); White Blood Cell 9.3 10^3/uL (4.4-10.8)
[2024-05-31 06:25] LABS: Anion Gap 9 (5-15); Carbon Dioxide 22 mmol/L (20-30); Chloride 105 mmol/L (98-107); Potassium 4.1 mmol/L (3.5-5.1); Sodium 136 mmol/L (136-145)
[2024-05-31 06:26] LABS: Calcium 10.2 mg/dL (8.7-10.4)
[2024-05-31 06:31] LABS: BUN/Creatinine Ratio 14.3 (10.0-20.0); Blood Urea Nitrogen 13 mg/dL (9-23); Glucose 153 mg/dL (74-106)
[2024-05-31] MEDS: AZITHROMYCIN 250 MG TAB PO SCH (12:00)
[2024-05-31] MEDS: PANTOPRAZOLE 40 MG TAB PO SCH (12:00)
[2024-05-31] MEDS: ASPirin-EC 81 mg tab PO SCH (12:01)
[2024-05-31] MEDS: ATENOLOL 25 MG TAB PO SCH (12:05)
[2024-05-31] MEDS: amLODIPine BESYLATE 5 MG TAB PO SCH (12:05)
[2024-05-31] MEDS: methylPREDNISolone SOD SUCC 40 MG/ML VL IV SCH (12:11)
[2024-06-01] VITALS (17 sets, daily range): BP systolic 129–153; BP diastolic 57–90; PULSE 51–97; RESP 16–20; TEMP 97.6–98.4; O2SAT 96–100
[2024-06-02] VITALS (20 sets, daily range): BP systolic 105–148; BP diastolic 65–74; PULSE 60–81; RESP 18–20; TEMP 97.6–98.2; O2SAT 94–100
[2024-06-02] MEDS: DOCUSATE SOD 100 MG CAP PO SCH (20:58)
[2024-06-03] VITALS (18 sets, daily range): BP systolic 120–157; BP diastolic 71–92; PULSE 51–96; RESP 16–22; TEMP 97.4–98.6; O2SAT 71–100
[2024-06-04] VITALS (20 sets, daily range): BP systolic 130–169; BP diastolic 81–94; PULSE 53–89; RESP 16–20; TEMP 97.7–98.6; O2SAT 93–100
[2024-06-05] VITALS (13 sets, daily range): BP systolic 118–148; BP diastolic 71–80; PULSE 63–80; RESP 16–18; TEMP 97.7–98.3; O2SAT 94–100
[2024-06-05] MEDS ORDERED: AZIT-185 PO (12:32)
[2024-06-05] MEDS ORDERED: METH4PAK PO (12:32)
[2024-06-05] MEDS ORDERED: HYDR-4902 PO (16:59)
== END 2024-06-05 16:52 | disposition home or self-care (01) | DRG 141 ==
LOC: ER 09:50 → WEST WING 15:48 → OVERFLOW 15:48 → WEST WING 23:43
PROVIDERS: ADMIT Registered Nurse General Practice; ATTEND Internal Medicine
DX: J45.901 Unspecified asthma with (acute) exacerbation (principal); E78.5 Hyperlipidemia, unspecified; F41.8 Other specified anxiety disorders; R73.9 Hyperglycemia, unspecified; I10 Essential (primary) hypertension; Z88.0 Allergy status to penicillin; Z79.899 Other long term (current) drug therapy
CPT/HCPCS: 36415; 71046; 80048; 82962; 84484; 85025; 94640; 96361; 96374; G0378

== ENCOUNTER 2024-07-07 12:33 | Inpatient (IN) | payer MEDICAID ==
[~2024-07-07] VITALS: Ht 167.6 cm; Wt 100.0 kg
[~2024-07-07 12:33] MED LIST changes: +AZIT-185 PO; +HYDR-4902 PO; +METH4PAK PO; -PRED20TA2 PO
--- NOTE | 2024-07-07 12:43 | ED.PDOC ---
SOB-HPI HPI Comments 53 y.o female with PMH of Asthma, HTN, PNA, Anxiety and PreDM, presents to the ED via EMS for a chief complaint of SOB associated with a productive cough, hot flashes, palpitations and chest tightness that started this morning. Patient went to urgent care, took her inhaler and medication but no relief. EMS reports administrating one DuoNeb treatment in route with some relief but upon ED arrival, patient's symptoms began to worsen once again. Patient denies any fever, chills, leg swelling, nausea, vomiting. No substance or tobacco use. Time Seen by MD: 12:36 Primary Care Provider: TRIP Reviewed notes: Nurses Notes, Clerical Order Filler Notes, Medications, Allergies Information Source: Patient, Emergency Med Personnel Mode of Arrival: EMS Severity: Moderate Timing: Hours Duration: Since onset Context: At Rest PE Risk Factors: None History of: Asthma Prehospital treatment: Breathing Tx Modifying Factors: Nothing Associated Signs and Symptoms: Wheeze, Cough, Chest Pain If cough with SOB: Productive Past Medical History PAST MEDICAL HISTORY: Anxiety, Asthma, High Lipids, HTN Surgical History: , Hernia Repair [employer] OFFICER History: Denies all [employer]LE [employer]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 Hx, Other Family History Family History: No family hx of Cancer, Family hx of DM, Family hx of heart mana, Family hx of HTN Family History (Other): crohn's disease Social History Smoker: Non-Smoker Alcohol: Occasionally Drugs: Denies Drug Use Lives In: Home Constitutional: denies: chills, diaphoresis, fatigue, fever, malaise, sweats, weakness, others EENTM: denies: blurred vision, double vision, ear bleeding, ear discharge, ear drainage, ear pain, ear ringing, eye pain, eye redness, hearing loss, mouth pain, mouth swelling, nasal discharge, nose bleeding, nose congestion, nose pain, photophobia, tearing, throat pain, throat swelling, voice changes, others Respiratory: reports: cough, SOB at rest, shortness of breath, SOB with excertion, wheezing; denies: hemoptysis, orthopnea, stridor, others Cardiovascular: reports: chest pain, palpitations; denies: dizzy spells, diaphoresis, Dyspnea on exertion, edema, irregular heart beat, left arm pain, lightheadedness, PND, syncope, others Gastrointestinal: denies: abdomen distended, abdominal pain, blood streaked b owels, constipated, diarrhea, dysphagia, difficulty swallowing, hematemesis, melena, nausea, poor appetite, poor fluid intake, rectal bleeding, rectal pain, vomiting, others Genitourinary: denies: abnormal vagina bleeding, burning, dyspareunia, dysuria, flank pain, frequency, hematuria, incontinence, pain, , vagina discharge, urgency, others Neurological: denies: dizziness, fainting, headache, left sided numbness, left sided weakness, numbness, paresthesia, pre-existing deficit, right sided numbness, right sided weakness, seizure, speech problems, tingling, tremors, weakness, others Musculoskeletal: denies: back pain, gout, joint pain, joint swelling, muscle pain, muscle stiffness, neck pain, others Integumetry: denies: bruises, change in color, change in hair/nails, dryness, laceration, lesions, lumps, rash, wounds, others Allergic/Immunocompromised: denies: Difficulty Healing, Frequent Infections, Hives, Itching, others Hematologic/Lymphatic: denies: anemia, blood clots, easy bleeding, easy brui sing, swollen glands, others Endocrine: denies: excessive hunger, excessive sweating, excessive thirst, ex cessive urination, flushing, intolerance to cold, intolerance to heat, unexplained weight gain, unexplained weight loss, others Psychiatric: denies: anxiety, bipolar disorder, depression, hopeless, panic disorder, schizophrenia, sleepless, suicidal, others All Other Systems: Reviewed and Negative Physical Exam General Appearance: Moderate Distress HEENT: Normal ENT Inspection, Pharynx Normal, TMs Normal Neck: Full Range of Motion, Non-Tender, Normal, Normal Inspection Respiratory: Chest Non-Tender, Decreased Breath Sounds, No Accessory Muscle Use, Respiratory Distress, Wheezing Cardiovascular: No Edema, No JVD, No Murmur, No Gallop, Normal Peripheral Pulses, Regular Rate/Rhythm Breast Exam: Deferred Gastrointestinal: No Organomegaly, Non Tender, No Pulsatile Mass, Normal Bowel Sounds, Soft Genitalia: Deferred Pelvic: Deferred Rectal: Deferred Extremities: No calf tenderness, Normal capillary refill, Normal inspection, Normal range of motion, Non-tender, No pedal edema Musculoskeletal : Apperance: Normal Neurologic: Alert, medical billing and coding instructor II-XII nml as Tested, Motor Weakness, Normal Affect, Normal Mood, No Sensory Deficits Cerebellar Function: Normal Reflexes: Normal Skin: Dry, Normal Color, Warm Lymphatic: No Adenopathy Was a procedure done? Was a procedure done?: No Differential Dx Differential Diagnosis: Asthma, Bronchitis, COPD, Pneumonia, Respiratory Distress, URI X-Ray, Labs, Meds, VS Vital Signs Date Time Temp Pulse Resp B/P (MAP) Pulse Ox O2 Delivery O2 Flow Rate FiO2 07/07/24 13:53 119 20 98 Room Air* 0 21 07/07/24 13:53 99.4 119 20 157/50 (85) 98 99.4 07/07/24 13:12 98 Room Air* 0 21 07/07/24 13:09 20 98 Room Air* 0 21 07/07/24 13:00 119 07/07/24 12:35 98.6 110 22 160/99 (119) 98 07/07/24 12:33 112 Lab Test 07/07/24 15:34 07/07/24 12:57 Range/Units Influenza Type A Antigen Pending Influenza Type B Antigen Pending White Blood Count 7.8 4.4-10.8 10^3/uL Red Blood Count 5.69 H 4.0-5.20 10^6/uL Hemoglobin 15.2 12.2-16.2 g/dL Hematocrit 45.9 36.0-46.0 % Mean Corpuscular Volume 80.7 80.0-100.0 fL Mean Corpuscular Hemoglobin 26.7 L 28.0-32.0 pg Mean Corpuscular Hemoglobin Concent 33.1 32.0-36.0 g/dL Red Cell Distribution Width 15.8 H 11.8-14.3 % Platelet Count 283 140-450 10^3/uL Mean Platelet Volume 8.5 6.9-10.8 fL Neutrophils (%) (Auto) 73.1 37.0-80.0 % Lymphocytes (%) (Auto) 18.4 10.0-50.0 % Monocytes (%) (Auto) 7.1 0.0-12.0 % Eosinophils (%) (Auto) 0.7 0.0-7.0 % Basophils (%) (Auto) 0.7 0.0-2.0 % Neutrophils # (Auto) 5.7 1.6-8.6 10 ^3/uL Lymphocytes # (Auto) 1.4 0.4-5.4 10 ^3/uL Monocytes # (Auto) 0.5 0-1.3 10 ^3/uL Eosinophils # (Auto) 0.1 0-0.8 10 ^3/uL Basophils # (Auto) 0.1 0-0.2 10 ^3/uL Nucleated Red Blood Cells 0.0 % Sodium Level 141 136-145 mmol/L Potassium Level 3.7 3.5-5.1 mmol/L Chloride Level 106 98-107 mmol/L Carbon Dioxide Level 24 20-31 mmol/L Anion Gap 11 5-15 Blood Urea Nitrogen 8 L 9-23 mg/dL Creatinine 0.81 0.550-1.02 mg/dL Glomerular Filtration Rate Calc 87 >90 mL/min BUN/Creatinine Ratio 9.9 L 10.0-20.0 Serum Glucose 126 H 74-106 mg/dL Calcium Level 10.3 8.7-10.4 mg/dL Current Medications Medications (Trade) Dose Ordered Sig/Roosevelt Route Start Time Stop Time Status Last Admin Methylprednisolone Sodium Succinate (Solu Medrol) 125 mg ONCE ONCE IV 07/07/24 12:45 07/07/24 12:46 DC 07/07/24 13:38 Ipratropium [place] (Atrovent Medneb) 1 mg ONCE ONCE N 07/07/24 12:45 07/07/24 12:46 DC 07/07/24 13:09 Albuterol (Ventolin Medneb) 10 mg ONCE ONCE N 07/07/24 12:45 07/07/24 12:46 DC 07/07/24 13:10 CHEST RADIOGRAPH IMPRESSION: Mild pulmonary vascular congestion. The patient is given Solu-Medrol 125 mg IV push The patient was given a continuous breathing treatment of albuterol and Atrovent For the pulmonary vascular congestion, the patient was given Lasix 40 mg IV push. The patient's chemistry panel is within normal limits. The CBC is within normal limits. The influenza a and influenza B are pending At this time, the patient is being admitted. Images Reviewed?: Images reviewed and evaluated by me Time of 1ST Reevaluation: 12:39 Reevaluation 1ST: Unchanged Patient Education/Counseling: Diagnosis, Treatment, Prognosis Family Education/Counseling: No Family Present Departure 1 Departure Time of Disposition: 16:18 Impression: Primary Impression: Exacerbation of asthma Qualified Codes: J45.51 - Severe persistent asthma with (acute) exacerbation Disposition: 09 ADMITTED INPATIENT Admit to: Tele Condition: Fair Critical Care Note Critical Care Time?: No Stability Stability form required: Yes Unstable for transfer: Telemetry monitoring (Telemetry monitoring required), ED Physician Assesment (Clinical assesment) I personally scribed for CRISTA ROTH MD ([email or web address]) on 07/07/24 at 12:43. Electronically submitted by Rachel Woodall ([employer]). I personally scribed for CRISTA ROTH MD ([email or web address]) on 07/07/24 at 14:27. Electronically submitted by Rachel Woodall ([employer]). CRISTA ROTH MD Jul 07, 2024 12:43
[2024-07-07] MEDS: IPRATROPIUM BROM 0.5 MG/2.5ML INH SOL HHN ONE (13:09)
[2024-07-07] MEDS: ALBUTEROL SULF 2.5 MG/0.5ML(0.5%) NEB SOLN HHN ONE (13:10)
[2024-07-07 13:19] LABS: Basophils # (auto) 0.1 10 ^3/uL (0-0.2); Basophils % (auto) 0.7 % (0.0-2.0); Eosinophils # (auto) 0.1 10 ^3/uL (0-0.8); Eosinophils % (auto) 0.7 % (0.0-7.0); Hematocrit 45.9 % (36.0-46.0); Hemoglobin 15.2 g/dL (12.2-16.2); Lymphocytes # (auto) 1.4 10 ^3/uL (0.4-5.4); Lymphocytes % (auto) 18.4 % (10.0-50.0); Mean Corpuscular Hemoglobin 26.7 pg (28.0-32.0); Mean Corpuscular Hgb Conc. 33.1 g/dL (32.0-36.0); Mean Corpuscular Volume 80.7 fL (80.0-100.0); Monocytes # (auto) 0.5 10 ^3/uL (0-1.3); Monocytes % (auto) 7.1 % (0.0-12.0); Neutrophils # (auto) 5.7 10 ^3/uL (1.6-8.6); Neutrophils % (auto) 73.1 % (37.0-80.0); Platelet Count (auto) 283 10^3/uL (140-450); Red Blood Cells 5.69 10^6/uL (4.0-5.20); Red Cell Distribution Width 15.8 % (11.8-14.3); White Blood Cell 7.8 10^3/uL (4.4-10.8)
[2024-07-07 13:24] LABS: Chloride 106 mmol/L (98-107); Potassium 3.7 mmol/L (3.5-5.1); Sodium 141 mmol/L (136-145)
[2024-07-07 13:25] LABS: Anion Gap 11 (5-15); Carbon Dioxide 24 mmol/L (20-31)
[2024-07-07 13:26] LABS: Calcium 10.3 mg/dL (8.7-10.4)
[2024-07-07 13:30] LABS: Glucose 126 mg/dL (74-106)
[2024-07-07 13:31] LABS: BUN/Creatinine Ratio 9.9 (10.0-20.0); Blood Urea Nitrogen 8 mg/dL (9-23)
--- NOTE | 2024-07-07 13:37 | DVH ---
CHEST RADIOGRAPH Indication:SOB Technique: Single frontal view of the chest was obtained Comparison: XY CHEST PORTABLE on DOS: 04/09/24, XY CHEST PORTABLE on DOS: 04/06/24, XY CHEST PORTABLE on DOS: 12/25/23 FINDINGS: Lines and Tubes: None Lungs: No focal consolidation. Mild interstitial prominence. Pleura: No effusion. No pneumothorax. Cardiomediastinal contours: Unremarkable Bones: No acute osseous abnormality. IMPRESSION: Mild pulmonary vascular congestion.
[2024-07-07] MEDS: methylPREDNISolone SOD SUCC 125 MG/2 ML VL IV ONE (13:38)
[2024-07-07 13:53] VITALS: PULSE 119; RESP 20; O2SAT 98
[2024-07-07 16:44] LABS: Rapid Influenza A Negative (Negative); Rapid Influenza B Negative (Negative)
[2024-07-07] MEDS ORDERED: ACETAMINOPHEN 650 mg PER 20.3 mL UD PO ONE (17:00)
[2024-07-07] MEDS: ACETAMINOPHEN 325 MG TAB PO ONE (17:16)
[2024-07-07] MEDS: FUROSEMIDE 40 MG/4 ML VIAL IV ONE (17:16)
--- NOTE | 2024-07-07 17:21 | ECG ---
[facility] Test Date: 2024-07-07 Test Time: 12:33:32 Pat Name: BRAYDON GRIGSBY Department: ED Room: 0271T Gender: F Leather Lacer: JAEL : 1970 Requested By: CRISTA ROTH Order Number: [id number] Reading MD: Zheng Munguia Measurements Intervals [place] Rate: 112 P: 70 TN: 160 QRS: 26 QRSD: 82 T: 25 QT: 336 QTc: 459 Interpretive Statements Sinus tachycardia Borderline T wave abnormalities Electronically Signed On 07-13-2024 10:04:37 PST by Zheng Munguia Please click the below link to view image of tracing.
[2024-07-07 18:16] LABS: Urine Bacteria FEW /hpf (None Seen); Urine Blood TRACE /uL (Negative); Urine Clarity Clear (Clear); Urine Color Light-Yellow (Yellow); Urine Mucus FEW (None Seen); Urine Protein, UAD TRACE (Negative); Urine Specific Gravity 1.014 (1.001-1.035); Urine Urobilinogen Normal (Negative); Urine WBC 2 /hpf (0 - 5)
[2024-07-07 19:36] VITALS: PULSE 99; RESP 20; O2SAT 98
[2024-07-07] MEDS ORDERED: ONDANSETRON HCL 4 MG/2 ML VIAL IV PRN (20:30)
[2024-07-07] MEDS ORDERED: NITROGLYCERIN 0.4 MG SL TAB SL PRN (20:30)
[2024-07-07] MEDS ORDERED: MORPHINE SULFATE INJ 2 MG/ml SYRG IV PRN (20:30)
[2024-07-07] MEDS: ENOXAPARIN SOD 40 MG/0.4 ML SYRINGE SC SCH (20:54)
[2024-07-07 21:05] LABS: Basophils # (auto) 0 10 ^3/uL (0-0.2); Eosinophils # (auto) 0 10 ^3/uL (0-0.8); Lymphocytes # (auto) 0.7 10 ^3/uL (0.4-5.4); Mean Corpuscular Volume 80.9 fL (80.0-100.0); Monocytes # (auto) 0.1 10 ^3/uL (0-1.3)
[2024-07-07 21:07] LABS: Basophils % (auto) 0.1 % (0.0-2.0); Hematocrit 46.8 % (36.0-46.0); Hemoglobin 15.1 g/dL (12.2-16.2); Lymphocytes % (auto) 8.3 % (10.0-50.0); Mean Corpuscular Hemoglobin 26.1 pg (28.0-32.0); Mean Corpuscular Hgb Conc. 32.2 g/dL (32.0-36.0); Monocytes % (auto) 0.8 % (0.0-12.0); Neutrophils # (auto) 7.1 10 ^3/uL (1.6-8.6); Neutrophils % (auto) 90.8 % (37.0-80.0); Platelet Count (auto) 293 10^3/uL (140-450); Red Blood Cells 5.78 10^6/uL (4.0-5.20); Red Cell Distribution Width 15.7 % (11.8-14.3); White Blood Cell 7.9 10^3/uL (4.4-10.8)
[2024-07-07 21:20] LABS: Alanine Aminotransferase 42 U/L (7-40); Albumin 4.7 g/dL (3.2-4.8); Alkaline Phosphatase 87 U/L (46-116); Anion Gap 11 (5-15); Aspartate Aminotransferase 41 U/L (13-40); BUN/Creatinine Ratio 9.4 (10.0-20.0); Blood Urea Nitrogen 10 mg/dL (9-23); Calcium 10.4 mg/dL (8.7-10.4); Carbon Dioxide 24 mmol/L (20-31); Chloride 104 mmol/L (98-107); Glucose 197 mg/dL (74-106); Potassium 3.7 mmol/L (3.5-5.1); Sodium 139 mmol/L (136-145)
[2024-07-07 21:21] LABS: Total Protein 8.5 g/dL (5.7-8.2)
[2024-07-07] MEDS: SODIUM CHLOR 0.9% PF (SALINE LOCK) 10ML VIAL/SYR IV SCH (22:00)
[2024-07-07 22:20] VITALS: BP 142/82; PULSE 95; RESP 17; TEMP 97.9; O2SAT 97
[2024-07-07] MEDS: ACETAMINOPHEN 325 MG TAB PO PRN (23:02)
[2024-07-08] VITALS (12 sets, daily range): BP systolic 130–174; BP diastolic 79–95; PULSE 63–90; RESP 16–20; TEMP 97.7–98.7; O2SAT 93–100
[2024-07-08] MEDS ORDERED: methylPREDNISolone SOD SUCC 40 MG/ML VL IM ONE (01:00)
--- NOTE | 2024-07-08 01:10 | DVHHPRES ---
History of Present Illness Resident Creating Document: DORIAN CLARK RESIDENT History of Present Illness BRAYDON GRIGSBY is a 53 years old female with a PMH HTN, asthma, anxiety, prediabetes, arthritis presented to the ED with the chief complaints of shortness of Breath with cough, chest tightness, palpitations since 10 am on the day of admission. Patient reported she initially went to urgent care, then symptoms worsened, went to ED. patient reported she is taking on her in her but no other breathing treatments. Patient reported she does have similar episodes for minute times, last month she is here for the same complaint. Past Medical History HTN, asthma, anxiety, prediabetes, arthritis Past Surgical History hernia repair Family History NC in mother, CHF in father Past Social History Lives at home. Occasional marijuana abuse but denies smoking, alcohol abuse Review of Systems Constitutional: No: Fever, Chills, Sweats, Weakness, Malaise, Other Eyes: No: Pain, Vision change, Conjunctivae inflammation, Eyelid inflammation, Other, Redness ENT: No: Ear pain, Ear discharge, Nose pain, Nose discharge, Nose congestion, Mouth pain, Mouth swelling, Throat pain, Throat swelling, Other Respiratory: Cough, Shortness of breath Cardiovascular: Other (Chest tightness) Gastrointestinal: No: Nausea, Vomiting, Abdominal Pain, Diarrhea, Constipation, Melena, Hematochezia, Other Genitourinary: No Dysuria, No Frequency, No Incontinence, No Hematuria, No Retention, No Other Musculoskeletal: No: other, neck pain, shoulder pain, arm pain, back pain, hand pain, leg pain, foot pain Skin: No: Rash, Lesions, Jaundice, Bruising, Other Neurological: No: Weakness, Numbness, Incoordination, Change in speech, Confusion, Seizures, Other Allergies: Coded Allergies: Penicillins (Verified Allergy, Severe, 01/15/20) Lisinopril (Verified Allergy, Unknown, Angioedema, 09/06/21) Medications Current Medications Medications Dose Ordered Sig/Roosevelt Route Start Time Stop Time Status Last Admin Dose Admin Sodium Chloride 10 ml Q8HR IV 07/07/24 22:00 07/07/24 22:00 10 ML Acetaminophen 325 mg Q4HP PRN PO 07/07/24 20:30 07/07/24 23:02 325 MG Ondansetron HCl 4 mg Q4HP PRN IV 07/07/24 20:30 Morphine Sulfate 2 mg Q4HPRN PRN IV 07/07/24 20:30 Enoxaparin Sodium 40 mg DAILY SC 07/07/24 20:30 07/07/24 20:54 40 MG Nitroglycerin 0.4 mg Q5MINP PRN SL 07/07/24 20:30 Morphine Sulfate 2 mg Q30M PRN IV 07/07/24 20:30 Albuterol 2.5 mg Q3HPRN PRN NEB 07/08/24 01:00 UNV Exam Vital Signs Vital Signs Date Time Temp Pulse Resp B/P (MAP) Pulse Ox O2 Delivery O2 Flow Rate FiO2 07/07/24 21:00 113 18 138/93 (108) 96 07/07/24 19:36 98.7 98.7 07/07/24 19:36 Room Air* 0 21 Exam Pt is lying on bed General Appearance: Alert, Oriented X3, Cooperative, Not in acute distress HEENT: Atraumatic, Mucous membranes moist/pink Respiratory: Diminished breath sounds Cardiovascular: Regular rate, Normal S1, Normal S2, No murmurs Abdominal: Active bowel sounds, Soft, no distention, no tenderness Extremities: No edema, Normal pulses, No tenderness/swelling Skin: No Significant rash, except past surgical scars Neuro: Normal speech, sensorimotor deficits none Psych/Mental Status: Mental status NL, Mood NL Nurse was there as sharpmary annne during examination Labs/Xrays Labs Test 07/07/24 20:37 07/07/24 17:47 07/07/24 15:34 Range/Units White Blood Count 7.9 4.4-10.8 10^3/uL Red Blood Count 5.78 H 4.0-5.20 10^6/uL Hemoglobin 15.1 12.2-16.2 g/dL Hematocrit 46.8 H 36.0-46.0 % Mean Corpuscular Volume 80.9 80.0-100.0 fL Mean Corpuscular Hemoglobin 26.1 L 28.0-32.0 pg Mean Corpuscular Hemoglobin Concent 32.2 32.0-36.0 g/dL Red Cell Distribution Width 15.7 H 11.8-14.3 % Platelet Count 293 140-450 10^3/uL Mean Platelet Volume 8.5 6.9-10.8 fL Neutrophils (%) (Auto) 90.8 H 37.0-80.0 % Lymphocytes (%) (Auto) 8.3 L 10.0-50.0 % Monocytes (%) (Auto) 0.8 0.0-12.0 % Eosinophils (%) (Auto) 0.0 0.0-7.0 % Basophils (%) (Auto) 0.1 0.0-2.0 % Neutrophils # (Auto) 7.1 1.6-8.6 10 ^3/uL Lymphocytes # (Auto) 0.7 0.4-5.4 10 ^3/uL Monocytes # (Auto) 0.1 0-1.3 10 ^3/uL Eosinophils # (Auto) 0 0-0.8 10 ^3/uL Basophils # (Auto) 0 0-0.2 10 ^3/uL Nucleated Red Blood Cells 0.0 % Sodium Level 139 136-145 mmol/L Potassium Level 3.7 3.5-5.1 mmol/L Chloride Level 104 98-107 mmol/L Carbon Dioxide Level 24 20-31 mmol/L Anion Gap 11 5-15 Blood Urea Nitrogen 10 9-23 mg/dL Creatinine 1.06 #H 0.550-1.02 mg/dL Glomerular Filtration Rate Calc 63 >90 mL/min BUN/Creatinine Ratio 9.4 L 10.0-20.0 Serum Glucose 197 H 74-106 mg/dL Calcium Level 10.4 8.7-10.4 mg/dL Total Bilirubin 1.0 0.2-1.0 mg/dL Aspartate Amino Transferase (AST) 41 H 13-40 U/L Alanine Aminotransferase (ALT) 42 H 7-40 U/L Alkaline Phosphatase 87 46-116 U/L Total Protein 8.5 H 5.7-8.2 g/dL Albumin 4.7 3.2-4.8 g/dL Urine Color Light-yellow Yellow Urine Clarity Clear Clear Urine pH 6.0 5.0-9.0 Urine Specific [place] 1.014 1.001-1.035 Urine Protein Trace H Negative Urine Ketones Trace Negative Urine Blood Trace H Negative /uL Urine Nitrite Negative Negative Urine Bilirubin Negative Negative Urine Urobilinogen Normal Negative mg/dL Urine Leukocyte Esterase Negative Negative /uL Urine RBC 2 0 - 4 /hpf Urine WBC 2 0 - 5 /hpf Urine Squamous Epithelial Cells Few <5 /hpf Urine Bacteria Few H None Seen /hpf Urine Mucus Few None Seen Urine Glucose Normal Normal mg/dL Influenza Type A Antigen Negative Negative Influenza Type B Antigen Negative Negative Assessment/Plan Assessment/Plan # ? Acute asthma exacerbation # acute hypoxic respiratory failure secondary to above -Given Albuterol and Atrovent -currently on albuterol q.3 h p.r.n. -given 1 dose of methylprednisolone 40 mg -Keep O2 sats greater than 92% -CXR showed mild pulmonary vascular congestion # medication noncompliance -patient was given counseling regarding medication compliance # Jose likely VMN on ckd -continuously monitor lab -encourage oral fluids # Uncontrolled hypertension - Resume home meds # Anxiety -and resume home meds Lovenox for now Protonix Cardiac diet Reconciled home meds Goals of care discussed with the patient for more than 27 minutes: Full code status Case management discussed with Dr. Mathias, patient and nurse Plan discussed with: Patient, Other My Orders Orders - DORIAN CLARK RESIDENT Procedure Category Date Status Time Admit ADMIT 07/07/24 Transmitted 20:30 Allergies LEEROY 07/07/24 In Process 20:30 Code Status CODE 07/07/24 Transmitted 20:30 Sodium Chloride Lock PHA 07/07/24 In Process (Saline Lock Ns) 22:00 Acetaminophen Tablet PHA 07/07/24 In Process (Tylenol Tablet) 20:30 Ondansetron Hcl PHA 07/07/24 In Process (Zofran) 20:30 Complete Blood Count LAB 07/08/24 Logged 04:00 Comprehensive LAB 07/08/24 Logged Metabolic Panel 04:00 Cardiac DIET 07/08/24 Transmitted Diet-2gna,Lofat,Lochol Breakfast Morphine Sulfate PHA 07/07/24 In Process Injection 20:30 Enoxaparin Sodium PHA 07/07/24 In Process (Lovenox) 20:30 Nitroglycerin PHA 07/07/24 In Process Sublingual (Ntrostat 20:30 Morphine Sulfate PHA 07/07/24 In Process Injection 20:30 Oxygen By Nasal RT 07/07/24 Transmitted Cannula 20:30 Stat Ekg For Chest LEEROY 07/07/24 In Process Pain 20:30 Notify Of Changes LEEROY 07/07/24 In Process From Base 20:30 Medicare Sales Representative For LEEROY 07/07/24 In Process 24 Hours 20:30 Emergency Dysrhythmia LEEROY 11/1/24 In Process Protocol 20:30 Rhythm Strips Once LEEROY 07/07/24 In Process Every Shift 20:30 Drug Screen LAB 07/08/24 Logged 00:54 Vitamin D, 25-Hydroxy LAB 07/08/24 Logged 00:54 Vitamin B12 LAB 07/08/24 Logged 00:54 Thyroid Stimulating LAB 07/08/24 Logged Hormone 00:54 Hemoglobin A1c LAB 07/08/24 Logged 00:54 D-Dimer LAB 07/08/24 Logged 00:54 B-Type Natriuretic LAB 07/08/24 Logged Peptide 00:59 Albuterol Medneb PHA 07/08/24 Logged (Ventolin Medneb) 01:00 Methylprednisolone PHA 07/08/24 Logged Sod Succ (Solu Medrol 01:00 Amlodipine Tablet PHA 07/08/24 Transmitted (Norvasc Tablet) 10:00 Aspirin Enteric PHA 07/08/24 Transmitted Coated Tablet 10:00 Atenolol Tablet PHA 07/08/24 Transmitted (Tenormin Tablet) 10:00 Clonidine Hcl Tablet PHA 07/08/24 Transmitted (Catapres Tablet) 22:00 Lorazepam Tablet PHA 07/08/24 Transmitted (Ativan Tablet) 01:15 Pantoprazole Tablet PHA 07/08/24 Transmitted (Protonix Tablet) 10:00 Date of Service: Jul 07, 2024 Billing Provider: KARLA MATHIAS Common Visit Codes: [id number] INP/OBS CARE (HIGH) DORIAN CLARK RESIDENT Jul 08, 2024 01:10 NORA MATHIAS MD Jul 08, 2024 12:57
[2024-07-08] MEDS ORDERED: LORazepam 0.5 MG TAB PO PRN (01:15)
[2024-07-08] MEDS: MORPHINE SULFATE INJ 2 MG/ml SYRG IV PRN (02:26)
[2024-07-08 04:48] LABS: Basophils # (auto) 0 10 ^3/uL (0-0.2); Eosinophils # (auto) 0 10 ^3/uL (0-0.8); Lymphocytes # (auto) 0.8 10 ^3/uL (0.4-5.4); Monocytes # (auto) 0.2 10 ^3/uL (0-1.3); Red Cell Distribution Width 15.6 % (11.8-14.3)
[2024-07-08 04:50] LABS: Basophils % (auto) 0.2 % (0.0-2.0); Lymphocytes % (auto) 11.2 % (10.0-50.0); Mean Corpuscular Hemoglobin 26.4 pg (28.0-32.0); Mean Corpuscular Hgb Conc. 32.5 g/dL (32.0-36.0); Mean Corpuscular Volume 81.4 fL (80.0-100.0); Monocytes % (auto) 3.2 % (0.0-12.0); Neutrophils % (auto) 85.4 % (37.0-80.0); Nucleated Red Blood Cells % 0.2 %; Platelet Count (auto) 270 10^3/uL (140-450); Red Blood Cells 5.28 10^6/uL (4.0-5.20)
[2024-07-08 05:04] LABS: Alanine Aminotransferase 32 U/L (7-40); Albumin 4.4 g/dL (3.2-4.8); Alkaline Phosphatase 78 U/L (46-116); Anion Gap 8 (5-15); Aspartate Aminotransferase 26 U/L (13-40); BUN/Creatinine Ratio 11.4 (10.0-20.0); Bilirubin, Total 0.8 mg/dL (0.2-1.0); Blood Urea Nitrogen 10 mg/dL (9-23); Calcium 10.3 mg/dL (8.7-10.4); Carbon Dioxide 24 mmol/L (20-31); Chloride 104 mmol/L (98-107); Glucose 197 mg/dL (74-106); Potassium 3.9 mmol/L (3.5-5.1); Sodium 136 mmol/L (136-145); Total Protein 7.6 g/dL (5.7-8.2)
[2024-07-08 08:17] LABS: Amphetamine Screen, Urine Neg (NEGATIVE)
[2024-07-08 08:18] LABS: Barbiturate Scree,Urine Neg (NEGATIVE); Benzodiazephine Screen, Urine Neg (NEGATIVE); Cannabinoid Screen, Urine Neg (NEGATIVE); Cocaine Screen, Urine Neg (NEGATIVE); Opiate Scree,Urine Neg (NEGATIVE); Phencyclidine Screen, Urine Neg (NEGATIVE)
[2024-07-08] MEDS: ATENOLOL 25 MG TAB PO SCH (08:52)
[2024-07-08] MEDS: amLODIPine BESYLATE 5 MG TAB PO SCH (08:52)
[2024-07-08] MEDS: PANTOPRAZOLE 40 MG TAB PO SCH (08:53)
[2024-07-08] MEDS: ASPirin-EC 81 mg tab PO SCH (08:53)
--- NOTE | 2024-07-08 14:05 | DVHPN2 ---
Eyes: No Pain, No Vision change, No Conjunctivae inflammation, No Eyelid inflammation, No Other, No Redness ENT: No Ear pain, No Ear discharge, No Nose pain, No Nose discharge, No Nose congestion, No Mouth pain, No Mouth swelling, No Throat pain, No Throat swelling, No Other Cardiovascular: Other (Chest tightness) Respiratory: Cough, Shortness of breath Gastrointestinal: No Nausea, No Vomiting, No Abdominal Pain, No Diarrhea, No Constipation, No Melena, No Hematochezia, No Other Genitourinary: No Dysuria, No Frequency, No Incontinence, No Hematuria, No Retention, No Other Musculoskeletal: No other, No neck pain, No shoulder pain, No arm pain, No back pain, No hand pain, No leg pain, No foot pain Skin: No Rash, No Lesions, No Jaundice, No Bruising, No Other Objective Vitals Vital Signs Date Time Temp Pulse Resp B/P (MAP) Pulse Ox O2 Delivery O2 Flow Rate FiO2 07/08/24 12:43 98.2 63 20 153/82 (105) 93 98.2 07/08/24 06:57 Room Air* 0 21 Intake/Output Intake and Output 07/08/24 07:00 Intake Total 920 ml Balance 920 ml Intake Oral 920 ml # Voids 7 # Bowel Movements 2 Medications Current Medications Medications Dose Ordered Sig/[place] Route Start Time Stop Time Status Last Admin Dose Admin Sodium Chloride 10 ml Q8HR IV 07/07/24 22:00 07/08/24 05:07 10 ML Acetaminophen 325 mg Q4HP PRN PO 07/07/24 20:30 07/07/24 23:02 325 MG Ondansetron HCl 4 mg Q4HP PRN IV 07/07/24 20:30 Morphine Sulfate 2 mg Q4HPRN PRN IV 07/07/24 20:30 07/08/24 09:28 2 MG Enoxaparin Sodium 40 mg DAILY SC 07/07/24 20:30 07/08/24 08:53 40 MG Nitroglycerin 0.4 mg Q5MINP PRN SL 07/07/24 20:30 Morphine Sulfate 2 mg Q30M PRN IV 07/07/24 20:30 Albuterol 2.5 mg Q3HPRN PRN NEB 07/08/24 01:00 Amlodipine Besylate 10 mg DAILY PO 07/08/24 10:00 07/08/24 08:52 10 MG Aspirin 81 mg DAILY PO 07/08/24 10:00 07/08/24 08:53 81 MG Atenolol 25 mg DAILY PO 07/08/24 10:00 07/08/24 08:52 25 MG Clonidine HCl 0.1 mg HS PO 07/08/24 22:00 Lorazepam 0.5 mg DAILYP PRN PO 07/08/24 01:15 Pantoprazole Sodium 40 mg DAILY PO 07/08/24 10:00 07/08/24 08:53 40 MG Ergocalciferol 50,000 unit Q7D PO 07/08/24 07:45 Laboratory Results Laboratory Tests 07/08/24 04:22 Chemistry Test 07/07/24 20:37 07/08/24 04:22 Albumin 4.7 g/dL (3.2-4.8) 4.4 g/dL (3.2-4.8) Calcium Level 10.4 mg/dL (8.7-10.4) 10.3 mg/dL (8.7-10.4) Total Protein 8.5 g/dL (5.7-8.2) H 7.6 g/dL (5.7-8.2) Coagulation Test 07/08/24 04:22 D-Dimer, Quantitative 0.26 mg/L FEU (0.0-0.49) Cardiac Markers Test 07/08/24 04:22 B-Type Natriuretic Peptide 42.43 pg/mL (0-100) LFT Test 07/07/24 20:37 07/08/24 04:22 Alanine Aminotransferase (ALT) 42 U/L (7-40) H 32 U/L (7-40) Alkaline Phosphatase 87 U/L (46-116) 78 U/L (46-116) Aspartate Amino Transferase (AST) 41 U/L (13-40) H 26 U/L (13-40) Total Bilirubin 1.0 mg/dL (0.2-1.0) 0.8 mg/dL (0.2-1.0) HgA1c, TSH Test 07/08/24 04:00 07/08/24 04:22 Hemoglobin A1c 6.1 % A1C (<5.7) H Thyroid Stimulating Hormone (TSH) 0.67 uIU/mL (0.55-4.78) Urinalysis Test 07/07/24 17:47 Urine Color Light-yellow (Yellow) Urine Clarity Clear (Clear) Urine pH 6.0 (5.0-9.0) Urine Specific [place] 1.014 (1.001-1.035) Urine Protein Trace (Negative) H Urine Ketones Trace (Negative) Urine Blood Trace /uL (Negative) H Urine Nitrite Negative (Negative) Urine Bilirubin Negative (Negative) Urine Urobilinogen Normal mg/dL (Negative) Urine Leukocyte Esterase Negative /uL (Negative) Urine RBC 2 /hpf (0 - 4) Urine WBC 2 /hpf (0 - 5) Urine Squamous Epithelial Cells Few /hpf (<5) Urine Bacteria Few /hpf (None Seen) H Urine Mucus Few (None Seen) Urine Glucose Normal mg/dL (Normal) WILL ALVAREZ MD Jul 08, 2024 14:05
[2024-07-08] MEDS ORDERED: FURO1TAB33 PO (14:44)
[2024-07-08] MEDS ORDERED: METH4PAK PO (14:44)
[2024-07-08] MEDS ORDERED: AZIT-185 PO (14:44)
--- NOTE | 2024-07-08 14:46 | DVHDS2 ---
Discharge Summary Date of Admission Jul 07, 2024 at 20:30 Date of Discharge: Jul 08, 2024 Admitting Diagnosis # ? 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 on ckd # Uncontrolled hypertension # Anxiety Labs/Diagnostic Data: Laboratory Results Test 07/08/24 04:22 07/08/24 04:00 07/07/24 17:47 07/07/24 15:34 White Blood Count 7.0 10^3/uL (4.4-10.8) Red Blood Count 5.28 10^6/uL (4.0-5.20) Hemoglobin 14.0 g/dL (12.2-16.2) Hematocrit 43.0 % (36.0-46.0) Mean Corpuscular Volume 81.4 fL (80.0-100.0) Mean Corpuscular Hemoglobin 26.4 pg (28.0-32.0) Mean Corpuscular Hemoglobin Concent 32.5 g/dL (32.0-36.0) Red Cell Distribution Width 15.6 % (11.8-14.3) Platelet Count 270 10^3/uL (140-450) Mean Platelet Volume 8.4 fL (6.9-10.8) Neutrophils (%) (Auto) 85.4 % (37.0-80.0) Lymphocytes (%) (Auto) 11.2 % (10.0-50.0) Monocytes (%) (Auto) 3.2 % (0.0-12.0) Eosinophils (%) (Auto) 0.0 % (0.0-7.0) Basophils (%) (Auto) 0.2 % (0.0-2.0) Neutrophils # (Auto) 6.0 10 ^3/uL (1.6-8.6) Lymphocytes # (Auto) 0.8 10 ^3/uL (0.4-5.4) Monocytes # (Auto) 0.2 10 ^3/uL (0-1.3) Eosinophils # (Auto) 0 10 ^3/uL (0-0.8) Basophils # (Auto) 0 10 ^3/uL (0-0.2) Nucleated Red Blood Cells 0.2 % D-Dimer, Quantitative 0.26 mg/L FEU (0.0-0.49) Sodium Level 136 mmol/L (136-145) Potassium Level 3.9 mmol/L (3.5-5.1) Chloride Level 104 mmol/L (98-107) Carbon Dioxide Level 24 mmol/L (20-31) Anion Gap 8 (5-15) Blood Urea Nitrogen 10 mg/dL (9-23) Creatinine 0.88 mg/dL (0.550-1.02) Glomerular Filtration Rate Calc 79 mL/min (>90) BUN/Creatinine Ratio 11.4 (10.0-20.0) Serum Glucose 197 mg/dL (74-106) Calcium Level 10.3 mg/dL (8.7-10.4) Total Bilirubin 0.8 mg/dL (0.2-1.0) Aspartate Amino Transferase (AST) 26 U/L (13-40) Alanine Aminotransferase (ALT) 32 U/L (7-40) Alkaline Phosphatase 78 U/L (46-116) B-Type Natriuretic Peptide 42.43 pg/mL (0-100) Total Protein 7.6 g/dL (5.7-8.2) Albumin 4.4 g/dL (3.2-4.8) Vitamin B12 Level 339 pg/mL (211-911) Vitamin D 25-Hydroxy 15.2 ng/mL (30.0-100) Thyroid Stimulating Hormone (TSH) 0.67 uIU/mL (0.55-4.78) Hemoglobin A1c 6.1 % A1C (<5.7) Urine Color Light-yellow (Yellow) Urine Clarity Clear (Clear) Urine pH 6.0 (5.0-9.0) Urine Specific [place] 1.014 (1.001-1.035) Urine Protein Trace (Negative) Urine Ketones Trace (Negative) Urine Blood Trace /uL (Negative) Urine Nitrite Negative (Negative) Urine Bilirubin Negative (Negative) Urine Urobilinogen Normal mg/dL (Negative) Urine Leukocyte Esterase Negative /uL (Negative) Urine RBC 2 /hpf (0 - 4) Urine WBC 2 /hpf (0 - 5) Urine Squamous Epithelial Cells Few /hpf (<5) Urine Bacteria Few /hpf (None Seen) Urine Mucus Few (None Seen) Urine Glucose Normal mg/dL (Normal) Urine Opiates Screen Neg (NEGATIVE) Urine Fentanyl Screen Neg (NEGATIVE) Urine Barbiturates Screen Neg (NEGATIVE) Urine Phencyclidine Screen Neg (NEGATIVE) Urine Amphetamines Screen Neg (NEGATIVE) Urine Benzodiazepines Screen Neg (NEGATIVE) Urine Cocaine Screen Neg (NEGATIVE) Urine Cannabinoids Screen Neg (NEGATIVE) Influenza Type A Antigen Negative (Negative) Influenza Type B Antigen Negative (Negative) Other Laboratory Tests 07/08/24 04:22 Brief Hx & Hospital Course: This is a 53 years old female with past medical history of hypertension, recurrent asthma with multiple hospitalization, anxiety, prediabetic, arthritis came to emergency department with severe shortness for breath and cough. She also complained of chest tightness and heart palpitation. She apparently went to urgent care and was advised to come to emergency department because her symptoms worsened. The patient was found to have hypoxic and was admitted to the hospital for asthma exacerbation. The patient was given IV antibiotics, Solu-Medrol, nebulizer. Today the patient doing better. The patient wanted to go home because her daughter who live alone having some trouble with the her boyfriend. Advised the patient to follow up with primary care physician 1-2 weeks. 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 Activity as tolerated. Diet per home diet. Physical exam: HEENT: Normocephalic atraumatic pupils equal react to light and accommodation. Extraocular muscles intact, conjunctiva pink, oropharynx moist, no thrush, no exudate. Lymphatic: No lymphadenopathy Cardiovascular exam: S1, S2 was heard. No murmurs, rubs, gallops Lung: Clear on auscultation bilaterally, no wheeze, rale, rhonchi. GI: Abdominal soft, nondistended, nontenderness, positive bowel sounds. Extremity: No crepitus, cyanosis, edema. Pedal pulses present bilateral. Full range of motion. Skin: Normal turgor, no rash. Psych: Alert, oriented x3. Neurology: No focal deficits, cranial nerve II to XII grossly intact. 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 Patient was counseled about treatment plan, medications, possible side effects, patientverbalized understanding. All questions were answered to the best of my ability. This discharge took greater then 30 minutes in planning, reviewing documentation, counseling the patient, and discussing with other team members." ASSESSMENT ASSESSMENT Assessment asthma exacerbation Date of Service: Jul 08, 2024 Billing Provider: WILL ALVAREZ MD Common Visit Codes: 06046-ELJ/OBS DISCH DAY >30min WILL ALVAREZ MD Jul 08, 2024 14:46
[2024-07-08] MEDS: ALBUTEROL SULF 2.5 MG/0.5ML(0.5%) NEB SOLN NEB PRN (15:05)
[2024-07-08] MEDS: ERGOCALCIFEROL 50,000 UNIT(1.25MG) CAP PO SCH (18:37)
[2024-07-08] MEDS ORDERED: cloNIDine HCL 0.1 MG TAB PO SCH (22:00)
== END 2024-07-08 19:45 | disposition home or self-care (01) | DRG 141 ==
LOC: EDBD 12:33 → ER 12:33 → TELE 20:30 → TELE-WESTW 22:20
PROVIDERS: ADMIT Internal Medicine; ATTEND Internal Medicine
DX: J45.901 Unspecified asthma with (acute) exacerbation (principal); N17.0 Acute kidney failure with tubular necrosis; J96.01 Acute respiratory failure with hypoxia; F12.10 Cannabis abuse, uncomplicated; F41.9 Anxiety disorder, unspecified; I10 Essential (primary) hypertension; R73.03 Prediabetes; Z82.49 Family history of ischemic heart disease and other diseases of the circulatory system; Z91.148 Patient's other noncompliance with medication regimen for other reason
CPT/HCPCS: 36415; 71045; 80048; 80053; 80307; 81001; 82306; 82607; 83036; 83880; 84443; 85025; 85379; 87804; 93005; 94640; G0378

== ENCOUNTER 2024-08-07 16:38 | Inpatient (IN) | payer MEDICAID ==
[~2024-08-07] VITALS: Ht 154.9 cm; Wt 99.8 kg
[~2024-08-07 16:38] MED LIST changes: +FURO1TAB33 PO
[2024-08-07] MEDS: SODIUM CHLORIDE 0.9% 500 ML IV ONE (17:30)
--- NOTE | 2024-08-07 17:32 | ECG ---
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
[2024-08-07 18:24] LABS: Basophils # (auto) 0 10 ^3/uL (0-0.2); Basophils % (auto) 0.4 % (0.0-2.0); Eosinophils # (auto) 0.1 10 ^3/uL (0-0.8); Lymphocytes # (auto) 1.8 10 ^3/uL (0.4-5.4)
[2024-08-07 18:28] LABS: Eosinophils % (auto) 1.7 % (0.0-7.0); Hematocrit 41.3 % (36.0-46.0); Hemoglobin 13.4 g/dL (12.2-16.2); Lymphocytes % (auto) 24.4 % (10.0-50.0); Mean Corpuscular Hemoglobin 26.2 pg (28.0-32.0); Mean Corpuscular Hgb Conc. 32.5 g/dL (32.0-36.0); Mean Corpuscular Volume 80.5 fL (80.0-100.0); Monocytes # (auto) 0.4 10 ^3/uL (0-1.3); Monocytes % (auto) 5.5 % (0.0-12.0); Nucleated Red Blood Cells % 0.1 %; Platelet Count (auto) 255 10^3/uL (140-450); Red Blood Cells 5.13 10^6/uL (4.0-5.20); Red Cell Distribution Width 15.1 % (11.8-14.3); White Blood Cell 7.3 10^3/uL (4.4-10.8)
[2024-08-07 19:18] LABS: INR 0.99 (0.9-1.15); Partial Thromboplastin Time 27.5 SEC (24.5-34.5); Prothrombin Time 10.5 sec (9.3-11.8)
[2024-08-07 19:34] LABS: Alanine Aminotransferase 30 U/L (7-40); Albumin 4.6 g/dL (3.2-4.8); Alkaline Phosphatase 79 U/L (46-116); Anion Gap 11 (5-15); Aspartate Aminotransferase 20 U/L (13-40); BUN/Creatinine Ratio 11.1 (10.0-20.0); Bilirubin, Total 1.4 mg/dL (0.2-1.0); Blood Urea Nitrogen 9 mg/dL (9-23); Calcium 10.5 mg/dL (8.7-10.4); Carbon Dioxide 25 mmol/L (20-31); Chloride 104 mmol/L (98-107); Glucose 125 mg/dL (74-106); Lipase 37 U/L (12-53); Potassium 3.8 mmol/L (3.5-5.1); Sodium 140 mmol/L (136-145); Total Protein 7.4 g/dL (5.7-8.2)
[2024-08-07] MEDS: IOHEXOL 300 MG/ML 100ML BOTTLE IJ ONE (19:49)
--- NOTE | 2024-08-07 20:15 | ED.PDOC ---
GI ASSESSMENT HPI Comments 53-year-old female patient with past medical history of asthma, anxiety, TIA, hypertension, diverticulosis presented with complaints of rectal bleeding. She mentioned that she started having rectal bleeding around seven in the morning patient describes as blood mixed in the stools and some blood clots. She mentioned she had some mild epigastric pain before having rectal bleeding. She mentioned seven episodes of loose stools since today morning. She mentioned associated acid reflux and nausea but denied any vomiting. Patient also mentioned associated shortness of breath this started around 12 30 and dizziness and mild headache. SHe took albuterol 2 times but only got partial relief. She took ibuprofen yesterday at 10 p.m. for headache and had been drinking recently again since . She also takes aspirin daily 81 mg but does not know the reason. She mentioned she had similar complaints two years ago where she was told by the doctor that her bleeding is because of excessive alcohol consumption. She was planned to have a colonoscopy but never got appointment. She denied any melena, chest pain, orthopnea, palpitations, generalized weakness, fatigue, cough,seizures. Past medical history asthma, anxiety, TIA, hypertension, diverticulosis Past surgical history section and hernia repair 3 times Family history Noncontributory to the above illness Allergic history Lisinopril, penicillin Social history Denied smoking, mentions that she consumes marijuana and alcohol, denied any other drugs Medication history Albuterol, vitamin-E, vitamin-C, amlodipine, aspirin, atenolol, Symbicort inhaler, Lasix, Protonix high Review of system As described in HPI Examination General Appearance: Alert, Oriented X3, Cooperative, No acute distress Respiratory: Clear to auscultation, Normal air movement Cardiovascular: Regular rate, Normal S1, Normal S2 Abdominal: Soft, mild epigastric tenderness, no generalized tenderness, no rigidity, no guarding Extremities: No cyanosis, No edema, Normal pulses, No tenderness/swelling Skin: No rashes, No breakdown Neuro: Normal speech and tone, Chief Complaint: gi bleed Time Seen by MD: 17:03 Primary Care Provider: SENIA Reviewed Notes: Nurses Notes, Allergies Allergies: Coded Allergies: Penicillins (Verified Allergy, Severe, 01/15/20) Lisinopril (Verified Allergy, Unknown, Angioedema, 09/06/21) Home Meds Active Scripts Furosemide (Lasix) 20 Mg Tb, 1 TAB PO DAILY, #10 TAB 0 Refills Prov:WILL ALVAREZ MD 07/08/24 Methylprednisolone (Medrol Dosepak) 4 Mg Gamaliel, 4 MG PO UD, #21 TAB UAD Prov:WILL ALVAREZ MD 07/08/24 Azithromycin (ZITHROMAX TABLET) 250 Mg Tb, 250 MG PO DAILY, #6 TAB take 2 tabs the first day, then one tab until finish Prov:WILL ALVAREZ MD 07/08/24 Hydrocodone-Acetaminophen (Hydrocodone Bitartrate/AC 5-325 mg) 1 Tab Tab, 1 TAB PO Q8HPRN PRN, #20 TAB Prov:WILL ALVAREZ MD 06/05/24 Budesonide-Formoterol Fumarate (Budesonide/Formoterol Fum 80-4.5 Mcg/Act) 1 Aer Aer, 1 AER IN BID for 30 Days, #1 AER 2 Refills Prov:ERICKA DAMON 04/08/24 Aspirin (Aspirin Low Dose) 81 Mg Tab, 81 MG PO DAILY for 30 Days, #30 TAB Prov:ERICKA DAMON 04/08/24 Ascorbic Acid (VITAMIN C TABLET) 500 Mg Tb, 1 TAB PO DAILY for 30 Days, #30 TAB 3 Refills Prov:ERICKA DAMON 04/08/24 Albuterol Sulfate (VENTOLIN MDI) 90 Mcg Ih, 180 MCG IN Q6HP PRN for SHORTNESS OF BREATH for 30 Days, #1 MCG Prov:ERICKA DAMON 04/08/24 Pantoprazole Sodium Sesquihydr (Protonix) 40 Mg Tab, 40 MG PO DAILY, #30 TAB Prov:JANINE BEST MD 12/27/23 Reported Medications Alpha Tocopheryl Acid Succinat (VITAMIN E) 100 Unit Tab, 100 UNIT PO, TAB 09/04/21 Carisoprodol (Soma) 350 Mg Tab, 350 MG PO Q6HP, TAB 09/04/21 Lorazepam (Ativan) 0.5 Mg Tab, 1 TAB PO DAILY PRN for ANXIETY, #30 TAB 09/04/21 Clonidine Hydrochloride (Clonidine Hcl) 0.1 Mg Tab, 0.1 MG PO HS for 30 Days, MG 09/04/21 Amlodipine Besylate (Amlodipine Besylate) 5 Mg Tab, 10 MG PO DAILY for 30 Days, MG 09/04/21 Atenolol (Atenolol) 25 Mg Tab, 25 MG PO DAILY for 30 Days, MG 09/04/21 Information Source: Patient Mode of Arrival: Ambulatory GI differential Dx Differential Diagnosis: AAA, Appendicitis, Bowel Obstruction, Diverticular disease, Esophageal rupture, Esophagitis, Gastritis/PUD, Gastroenteritis, GI hemorrhage, Inflammatory BD, Ischemic Bowel, Pancreatitis, Bacterial, Ischemic Bowel, Anemia Other Differential Diagnosis Internal hemorrhoids, external hemorrhoids, peptic ulcer disease X-Ray, Labs, Meds, VS Vital Signs Date Time Temp Pulse Resp B/P (MAP) Pulse Ox O2 Delivery O2 Flow Rate FiO2 08/07/24 17:06 66 08/07/24 16:59 98.2 75 22 137/80 (99) 99 Lab Test 08/07/24 18:03 Range/Units White Blood Count 7.3 4.4-10.8 10^3/uL Red Blood Count 5.13 4.0-5.20 10^6/uL Hemoglobin 13.4 12.2-16.2 g/dL Hematocrit 41.3 36.0-46.0 % Mean Corpuscular Volume 80.5 80.0-100.0 fL Mean Corpuscular Hemoglobin 26.2 L 28.0-32.0 pg Mean Corpuscular Hemoglobin Concent 32.5 32.0-36.0 g/dL Red Cell Distribution Width 15.1 H 11.8-14.3 % Platelet Count 255 140-450 10^3/uL Mean Platelet Volume 8.4 6.9-10.8 fL Neutrophils (%) (Auto) 68.0 37.0-80.0 % Lymphocytes (%) (Auto) 24.4 10.0-50.0 % Monocytes (%) (Auto) 5.5 0.0-12.0 % Eosinophils (%) (Auto) 1.7 0.0-7.0 % Basophils (%) (Auto) 0.4 0.0-2.0 % Neutrophils # (Auto) 5.0 1.6-8.6 10 ^3/uL Lymphocytes # (Auto) 1.8 0.4-5.4 10 ^3/uL Monocytes # (Auto) 0.4 0-1.3 10 ^3/uL Eosinophils # (Auto) 0.1 0-0.8 10 ^3/uL Basophils # (Auto) 0 0-0.2 10 ^3/uL Nucleated Red Blood Cells 0.1 % Prothrombin Time 10.5 9.3-11.8 sec Prothrombin Time INR 0.99 0.9-1.15 Activated Partial Thromboplast Time 27.5 24.5-34.5 SEC Sodium Level 140 136-145 mmol/L Potassium Level 3.8 3.5-5.1 mmol/L Chloride Level 104 98-107 mmol/L Carbon Dioxide Level 25 20-31 mmol/L Anion Gap 11 5-15 Blood Urea Nitrogen 9 9-23 mg/dL Creatinine 0.81 0.550-1.02 mg/dL Glomerular Filtration Rate Calc 87 >90 mL/min BUN/Creatinine Ratio 11.1 10.0-20.0 Serum Glucose 125 H 74-106 mg/dL Calcium Level 10.5 H 8.7-10.4 mg/dL Total Bilirubin 1.4 H 0.2-1.0 mg/dL Aspartate Amino Transferase (AST) 20 13-40 U/L Alanine Aminotransferase (ALT) 30 7-40 U/L Alkaline Phosphatase 79 46-116 U/L Troponin I High Sensitivity < 3 L </=34 ng/L Total Protein 7.4 5.7-8.2 g/dL Albumin 4.6 3.2-4.8 g/dL Lipase 37 12-53 U/L Beta HCG, Quantitative 2.1 1.5-4.2 mIU/mL X-Ray, Labs, Meds, VS Comment Addendum by Dr. Kellie Reyes: Patient seen in conjunction with Dr. Dooley. Agree with assessment, treatment and plan. Time of 1ST Reevaluation: 22:36 Reevaluation 1ST: Unchanged Patient Education/Counseling: Diagnosis, Treatment Family Education/Counseling: No Family Present Comments Patient presented with the rectal bleed, shortness of breath. workup was initiated. Patient was given: IV fluids, IV Protonix, IV levofloxacin. CXR reveals Small opacity in the lateral right lung base which could reflect a small pneumonia or atelectasis CT abd pelvis with IV contrast reveals 1. Marked pancolonic diverticulosis and mild diverticulosis of pelvic small bowel loops. No acute diverticulitis. 2. Mild calcified coronary artery disease. Patient has been observed in the ED adequate length of time to insure improvement/stability. patient was admitted to the medicine team for further evaluation and treatment of their presentation. Departure 1 Departure Time of Disposition: 22:35 Impression: Primary Impression: GI bleed Additional Impressions: Diverticulosis Shortness of breath Pneumonia Disposition: ADMITTED INPATIENT Admit to: Tele Condition: Guarded TARIQ DOOLEY Aug 07, 2024 20:15 SARAH MENDEZ MD Aug 08, 2024 21:25
[2024-08-07] MEDS: PANTOPRAZOLE 40 MG/10 ML VIAL INJ IV ONE (21:07)
--- NOTE | 2024-08-07 21:42 | DVH ---
EXAM: XY CHEST XRAY 1 VIEW CLINICAL HISTORY: SOB TECHNIQUE: Single AP view of the chest WID: COMPARISON: XY CHEST PORTABLE on DOS: 07/07/24 FINDINGS: Lines and tubes: None Chest: The heart size and pulmonary vasculature is within normal limits. No pleural effusion or pneumothorax. Small opacity in the lateral right lung base The osseous structures are grossly intact. IMPRESSION: Small opacity in the lateral right lung base which could reflect a small pneumonia or atelectasis
--- NOTE | 2024-08-07 21:52 | DVH ---
CLINICAL HISTORY: GI bleed TECHNIQUE: CT of the abdomen and pelvis was performed with intravenous contrast. This exam was perfor med according to our departmental dose optimization program. Up-to-date CT equipment and radiation do se reduction techniques are utilized as appropriate. CTDIVol: [CTDIvol] mGy DLP: 1421.73 mGy-cm WID: COMPARISON: CT AB PEL WITH IV CON ONLY on DOS: 03/03/20 FINDINGS: Lower Thorax: Small fat containing bilateral bochdalek hernias. Upper limits of normal-sized heart. L inear bibasilar scarring or atelectasis. Mild coronary artery calcifications. Liver and Biliary system: Normal-sized liver. No discrete hepatic lesion. Major portal veins are felix nt. Gallbladder is normal caliber without biliary ductal dilatation. Spleen: Unremarkable. Adrenal Glands and Kidneys: Unremarkable. Pancreas and Retroperitoneum: Unremarkable. Aorta and Major Vessels: Aortoiliac vessels are patent and normal caliber Bowel, Mesentery and Peritoneal space: Normal caliber small and large bowel. There is pancolonic dive rticulosis, severe. Normal appendix. There is mild diverticulosis in the distal small bowel in the pe lvis there is no free air or fluid collection. There is no free air or fluid collection. Pelvis: Unremarkable. Abdominal wall and Osseous Structures: Mild laxity of the midline anterior abdominal wall. No destruc tive osseous lesion. IMPRESSION: 1. Marked pancolonic diverticulosis and mild diverticulosis of pelvic small bowel loops. No acute div erticulitis. 2. Mild calcified coronary artery disease.
[2024-08-07] MEDS ORDERED: ONDANSETRON HCL 4 MG/2 ML VIAL IV PRN (23:00)
[2024-08-07] MEDS ORDERED: levoFLOXacin 500MG 100 ML IV ONE (23:00)
[2024-08-07] MEDS ORDERED: ALBUTEROL SULF 2.5 MG/0.5ML(0.5%) NEB SOLN NEB PRN (23:00)
[2024-08-07 23:15] VITALS: BP 137/80; PULSE 75; RESP 18; TEMP 98.2; O2SAT 99
[2024-08-07] MEDS: AZITHROMYCIN 500MG/ 250ML 250 ML IV ONE (23:16)
[2024-08-08] MEDS ORDERED: FUROSEMIDE 20 MG TAB PO SCH (10:00)
[2024-08-08] MEDS ORDERED: PANTOPRAZOLE 40 MG/10 ML VIAL INJ IV SCH (10:00)
[2024-08-08] MEDS ORDERED: ATENOLOL 25 MG TAB PO SCH (10:00)
[2024-08-08] MEDS ORDERED: amLODIPine BESYLATE 5 MG TAB PO SCH (10:00)
[2024-08-08] MEDS ORDERED: AZITHROMYCIN 500MG/ 250ML 250 ML IV SCH (23:00)
== END 2024-08-07 23:17 | disposition left against medical advice (07) | DRG 244 ==
LOC: ER 16:38 → OVERFLOW 23:01
PROVIDERS: ADMIT Nurse Practitioner; ATTEND Nurse Practitioner
DX: K57.31 Diverticulosis of large intestine without perforation or abscess with bleeding (principal); J18.9 Pneumonia, unspecified organism; F41.9 Anxiety disorder, unspecified; J45.909 Unspecified asthma, uncomplicated; I10 Essential (primary) hypertension; Z86.73 Personal history of transient ischemic attack (TIA), and cerebral infarction without residual deficits; Z88.0 Allergy status to penicillin; Z79.82 Long term (current) use of aspirin; Z79.899 Other long term (current) drug therapy
CPT/HCPCS: 36415; 71045; 74177; 80053; 81001; 82270; 83690; 84484; 84702; 85025; 85610; 85730; 86850; 86900; 86901; 93005; G0378; J2470

== ENCOUNTER 2024-08-08 03:49 | Inpatient (IN) | payer MEDICAID ==
[~2024-08-08] VITALS: Ht 154.9 cm; Wt 99.8 kg
--- NOTE | 2024-08-08 04:20 | ED.PDOC ---
History of Present Illness HPI Comments 53-year-old female patient with past medical history of asthma, anxiety, TIA, hypertension, diverticulosis presented with complaints of rectal bleeding. Symptoms started at seven in the morning patient describes as blood mixed in the stools and some blood clots. Associated with mild epigastric pain before having rectal bleeding, seven episodes of loose stools since today morning, acid reflux and nausea but denied any vomiting, shortness of breath this started around 12 30 and dizziness and mild headache. Patient was seen here earlier and admitted, but left to take her children home and has now returned back to the hospital. He reports no change in her symptoms since leaving the hospital and returning. Time Seen by MD: 04:18 Primary Care Provider: SENIA Reviewed Notes: Medications, Allergies Allergies: Coded Allergies: Penicillins (Verified Allergy, Severe, 01/15/20) Lisinopril (Verified Allergy, Unknown, Angioedema, 09/06/21) Home Meds Active Scripts Furosemide (Lasix) 20 Mg Tb, 1 TAB PO DAILY, #10 TAB 0 Refills Prov:WILL ALVAREZ MD 07/08/24 Methylprednisolone (Medrol Dosepak) 4 Mg Gamaliel, 4 MG PO UD, #21 TAB UAD Prov:WILL ALVAREZ MD 07/08/24 Azithromycin (ZITHROMAX TABLET) 250 Mg Tb, 250 MG PO DAILY, #6 TAB take 2 tabs the first day, then one tab until finish Prov:WILL ALVAREZ MD 07/08/24 Hydrocodone-Acetaminophen (Hydrocodone Bitartrate/AC 5-325 mg) 1 Tab Tab, 1 TAB PO Q8HPRN PRN, #20 TAB Prov:WILL ALVAREZ MD 06/05/24 Budesonide-Formoterol Fumarate (Budesonide/Formoterol Fum 80-4.5 Mcg/Act) 1 Aer Aer, 1 AER IN BID for 30 Days, #1 AER 2 Refills Prov:ERICKA DAMON 04/08/24 Aspirin (Aspirin Low Dose) 81 Mg Tab, 81 MG PO DAILY for 30 Days, #30 TAB Prov:ERICKA DAMON 04/08/24 Ascorbic Acid (VITAMIN C TABLET) 500 Mg Tb, 1 TAB PO DAILY for 30 Days, #30 TAB 3 Refills Prov:ERICKA DAMON 04/08/24 Albuterol Sulfate (VENTOLIN MDI) 90 Mcg Ih, 180 MCG IN Q6HP PRN for SHORTNESS OF BREATH for 30 Days, #1 MCG Prov:ERICKA DAMON RESIDENT 04/08/24 Pantoprazole Sodium Sesquihydr (Protonix) 40 Mg Tab, 40 MG PO DAILY, #30 TAB Prov:JANINE BEST MD 12/27/23 Reported Medications Alpha Tocopheryl Acid Succinat (VITAMIN E) 100 Unit Tab, 100 UNIT PO, TAB 09/04/21 Carisoprodol (Soma) 350 Mg Tab, 350 MG PO Q6HP, TAB 09/04/21 Lorazepam (Ativan) 0.5 Mg Tab, 1 TAB PO DAILY PRN for ANXIETY, #30 TAB 09/04/21 Clonidine Hydrochloride (Clonidine Hcl) 0.1 Mg Tab, 0.1 MG PO HS for 30 Days, MG 09/04/21 Amlodipine Besylate (Amlodipine Besylate) 5 Mg Tab, 10 MG PO DAILY for 30 Days, MG 09/04/21 Atenolol (Atenolol) 25 Mg Tab, 25 MG PO DAILY for 30 Days, MG 09/04/21 Information Source: Patient, DVH Medical Record Mode of Arrival: Ambulatory Severity: Moderate Timing: Hours Duration: Since onset Prehospital treatment: None Vital Signs Vital Signs Date Time Temp Pulse Resp B/P (MAP) Pulse Ox O2 Delivery O2 Flow Rate FiO2 08/08/24 04:46 98.2 97 16 153/83 (106) 97 98.2 Physical Exam General: Awake, alert and oriented. No acute distress. Skin: Skin in warm, dry and intact without rashes or lesions. HEENT: The head is normocephalic and atraumatic. Conjunctivae are clear without exudates or hemorrhage. Sclera is non-icteric. Neck: Normal range of motion. No JVD. Cardiac: Regular rate Respiratory: No signs of respiratory distress. No Stridor. Extremities: Upper and lower extremities are atraumatic in appearance without tenderness or deformity. Neurological: The patient is awake, alert and oriented to person, place, and time with normal speech. Speech is clear. There is no facial asymmetry. Psychiatric: Appropriate mood and affect. Good judgement and insight. No visual or auditory hallucinations. No suicidal or homicidal ideation. 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 Was a procedure done?: No Differential Dx Considerations may include: Melena, hematochezia, upper GI bleed, lower GI bleed X-Ray, Labs, Meds, VS Vital Signs Date Time Temp Pulse Resp B/P (MAP) Pulse Ox O2 Delivery O2 Flow Rate FiO2 08/08/24 04:46 98.2 97 16 153/83 (106) 97 98.2 08/08/24 04:00 98.2 75 22 137/80 (99) 99 Time of 1ST Reevaluation: 05:00 Reevaluation 1ST: Unchanged Patient Education/Counseling: Diagnosis, Treatment, Prognosis Family Education/Counseling: No Family Present Departure 1 Departure Time of Disposition: 04:37 Impression: Primary Impression: GI bleed Disposition: ADMITTED INPATIENT Condition: Guarded Comments I reviewed the following notes from the pt's past medical encounters: Previous encounter The following tests were ordered, and results were reviewed by me: Labs, imaging from previous encounter today. CXR reveals Small opacity in the lateral right lung base which could reflect a small pneumonia or atelectasis CT abd pelvis with IV contrast reveals 1. Marked pancolonic diverticulosis and mild diverticulosis of pelvic small bowel loops. No acute diverticulitis. 2. Mild calcified coronary artery disease. Patient has been observed in the ED adequate length of time to insure improvement/stability. Critical Care Note Critical Care Time?: No Stability Stability form required: No I personally scribed for MATT THRASHER MD ([email or web address]) on 08/08/24 at 04:20. Electronically submitted by Michael Thurston ([email or web address]). MATT THRASHER MD Aug 08, 2024 04:20
[2024-08-08] MEDS ORDERED: ONDANSETRON HCL 4 MG/2 ML VIAL IV PRN (05:00)
--- NOTE | 2024-08-08 05:05 | DVHHP2 ---
History of Present Illness Reason for Visit: Rectal bleeding History of Present Illness 53-year-old female presents for evaluation of rectal bleeding. Patient reports a one day history of noticing blood mixed in the stool with some blood clots. She states having proximally seven episodes. Denies shortness or breath or dizziness. No cardiac or respiratory symptoms. She reports having mild epigastric pain which has subsided. Past Medical History Hypertension, TIA, asthma, diverticulosis Past Surgical History Hernia repair and Family History Noncontributory Smoke: No ALCOHOL: none Drugs: None Lives: with Family Review of Systems Review of Systems Review of systems are currently negative otherwise addressed in HPI. Allergies: Coded Allergies: Penicillins (Verified Allergy, Severe, 01/15/20) Lisinopril (Verified Allergy, Unknown, Angioedema, 09/06/21) Exam Vital Signs Vital Signs Date Time Temp Pulse Resp B/P (MAP) Pulse Ox O2 Delivery O2 Flow Rate FiO2 08/08/24 04:46 98.2 97 16 153/83 (106) 97 98.2 Exam Gen: 53-year-old female in mild distress, morbidly obese Skin: Warm, dry, normal color and texture, no rash. HEENT: Normocephalic atraumatic, mucous membranes moist and pink. Neck: Cervical and supraclavicular nodes normal without enlargement, trachea is midline, thyroid gland is normal without masses. Pulmonary: Clear to auscultation and percussion bilaterally. Cardiac: Regular rate and rhythm. No murmur Abdomen: Soft, nontender, nondistended, bowel sounds present all 4 quadrants, no guarding, no rigidity, no organomegaly. Extremities: No cyanosis, clubbing, no edema Neuro: Cranial nerves II through XII grossly intact, normal affect and speech, no focal motor deficits. Labs/Xrays ORDERING PHYSICIAN: TARIQ PRESLEY RESIDENT PROCEDURE(s): ABPLIV - CT AB PEL WITH IV CON ONLY REASON: GI bleed ORDER NUMBER(s): [id number], ACCESSION NUMBER(s): [id number] CLINICAL HISTORY: GI bleed TECHNIQUE: CT of the abdomen and pelvis was performed with intravenous contrast. This exam was performed according to our departmental dose optimization program. Up-to-date CT equipment and radiation dose reduction techniques are utilized as appropriate. CTDIVol: [CTDIvol] mGy DLP: 1421.73 mGy-cm WID: COMPARISON: CT AB PEL WITH IV CON ONLY on DOS: 03/03/20 FINDINGS: Lower Thorax: Small fat containing bilateral bochdalek hernias. Upper limits of normal-sized heart. Linear bibasilar scarring or atelectasis. Mild coronary artery calcifications. Liver and Biliary system: Normal-sized liver. No discrete hepatic lesion. Major portal veins are patent. Gallbladder is normal caliber without biliary ductal dilatation. Spleen: Unremarkable. Adrenal Glands and Kidneys: Unremarkable. Pancreas and Retroperitoneum: Unremarkable. Aorta and Major Vessels: Aortoiliac vessels are patent and normal caliber Bowel, Mesentery and Peritoneal space: Normal caliber small and large bowel. There is pancolonic diverticulosis, severe. Normal appendix. There is mild diverticulosis in the distal small bowel in the pelvis there is no free air or fluid collection. There is no free air or fluid collection. Pelvis: Unremarkable. Abdominal wall and Osseous Structures: Mild laxity of the midline anterior abdominal wall. No destructive osseous lesion. IMPRESSION: 1. Marked pancolonic diverticulosis and mild diverticulosis of pelvic small bowel loops. No acute diverticulitis. 2. Mild calcified coronary artery disease. Assessment/Plan Assessment/Plan Assessment GI bleed Hypertension Morbid obesity Plan Admit the patient to [facility] to the hospitalist GI consult Clear liquid diet Continue treatment per orders. Plan discussed with: Patient My Orders Orders - MAURICIO BEAVER Procedure Category Date Status Time Hemoglobin & LAB 08/08/24 Verified Hematocrit 04:58 Type And Screen BBK 08/08/24 Verified 04:58 Amlodipine Tablet PHA 08/08/24 Verified (Norvasc Tablet) 10:00 Date of Service: Aug 08, 2024 Billing Provider: MAURICIO BEAVER Common Visit Codes: [id number] INP/OBS CARE (MOD) MAURICIO BEAVER Aug 08, 2024 05:05
[2024-08-08 05:38] LABS: Hemoglobin 12.6 g/dL (12.2-16.2)
[2024-08-08 05:40] LABS: Hematocrit 39.8 % (36.0-46.0)
[2024-08-08 07:40] VITALS: RESP 18; O2SAT 97
[2024-08-08] MEDS: FUROSEMIDE 20 MG TAB PO SCH (10:29)
[2024-08-08] MEDS: amLODIPine BESYLATE 5 MG TAB PO SCH (10:30)
[2024-08-08] MEDS: ATENOLOL 25 MG TAB PO SCH (10:30)
[2024-08-08] MEDS: PANTOPRAZOLE 40 MG/10 ML VIAL INJ IV SCH (10:30)
--- NOTE | 2024-08-08 13:39 | DVHPN2 ---
Reviewed: Care Plan, H&P, Labs, Medications, Previous Orders, Radiology Changes from previous H/P or p: No Changes Objective Vitals Vital Signs Date Time Temp Pulse Resp B/P (MAP) Pulse Ox O2 Delivery O2 Flow Rate FiO2 08/08/24 12:26 98.7 67 19 140/80 (100) 96 98.7 08/08/24 07:40 Room Air* 0 21 Medications Current Medications Medications Dose Ordered Sig/Roosevelt Route Start Time Stop Time Status Last Admin Dose Admin Amlodipine Besylate 5 mg DAILY PO 08/08/24 10:00 08/08/24 10:30 5 MG Atenolol 25 mg DAILY PO 08/08/24 10:00 08/08/24 10:30 25 MG Furosemide 20 mg DAILY PO 08/08/24 10:00 08/08/24 10:29 20 MG Pantoprazole Sodium 40 mg DAILY IV 08/08/24 10:00 08/08/24 10:30 40 MG Ondansetron HCl 4 mg Q4HP PRN IV 08/08/24 05:00 Laboratory Results Laboratory Tests 08/08/24 05:17 Labs and/or images reviewed: Labs reviewed by me, Image(s) reviewed by me Assessment/Plan Assessment/Plan Rectal bleeding hemoglobin stable at 13.4 Diverticulosis, no diverticulitis: Consult for GI surveillance monitor pantoprazole Rocephin Flagyl Hypertension : Amlodipine atenolol TIA Asthma Plan discussed with: Patient Date of Service: Aug 08, 2024 Billing Provider: DEMARIO JOHNSON MD Common Visit Codes: [id number] INP/OBS CARE(HIGH) DEMARIO JOHNSON MD Aug 08, 2024 13:39
[2024-08-08] MEDS ORDERED: cefTRIAXone 1GM/50ML D5W 50 ML IV ONE (13:45)
[2024-08-08] MEDS: cefTRIAXone 1GM/50ML D5W 50 ML IV ONE (14:30)
[2024-08-08 16:34] VITALS: PULSE 88; RESP 18; O2SAT 98
[2024-08-08] MEDS: metroNIDAZOLE 500MG/100ML 100 ML IV SCH (17:07)
[2024-08-08 17:56] VITALS: BP 116/68; PULSE 65; RESP 18; TEMP 97.8; O2SAT 97
[2024-08-08 18:17] LABS: Urine Bacteria None Seen /hpf (None Seen)
[2024-08-08 18:37] LABS: Urine Blood Negative /uL (Negative); Urine Clarity Clear (Clear); Urine Color Light-Yellow (Yellow); Urine Mucus FEW (None Seen); Urine Protein, UAD Negative (Negative); Urine Specific Gravity 1.021 (1.001-1.035); Urine Urobilinogen Normal (Negative); Urine WBC 1 /hpf (0 - 5)
[2024-08-09 01:00] VITALS: BP 118/86; PULSE 71; RESP 19; TEMP 98.6; O2SAT 96
[2024-08-09 05:00] VITALS: BP 124/74; PULSE 71; RESP 18; TEMP 97.9; O2SAT 97
[2024-08-09 06:28] LABS: Potassium 3.7 mmol/L (3.5-5.1); Sodium 141 mmol/L (136-145)
[2024-08-09 06:29] LABS: Anion Gap 6 (5-15); Carbon Dioxide 26 mmol/L (20-31)
[2024-08-09 06:30] LABS: Calcium 9.6 mg/dL (8.7-10.4)
[2024-08-09 06:35] LABS: BUN/Creatinine Ratio 11.2 (10.0-20.0); Blood Urea Nitrogen 10 mg/dL (9-23)
[2024-08-09] MEDS: HYDROcodone-ACET 5/325MG TAB PO PRN (06:40)
[2024-08-09 06:45] LABS: Chloride 109 mmol/L (98-107); Glucose 116 mg/dL (74-106)
[2024-08-09 06:55] LABS: Basophils # (auto) 0 10 ^3/uL (0-0.2); Lymphocytes # (auto) 1.8 10 ^3/uL (0.4-5.4); Neutrophils # (auto) 3.5 10 ^3/uL (1.6-8.6); White Blood Cell 6.4 10^3/uL (4.4-10.8)
[2024-08-09 06:58] LABS: Basophils % (auto) 0.6 % (0.0-2.0); Eosinophils # (auto) 0.2 10 ^3/uL (0-0.8); Eosinophils % (auto) 3.8 % (0.0-7.0); Hematocrit 36.1 % (36.0-46.0); Hemoglobin 11.5 g/dL (12.2-16.2); Mean Corpuscular Hemoglobin 25.6 pg (28.0-32.0); Mean Corpuscular Hgb Conc. 31.8 g/dL (32.0-36.0); Mean Corpuscular Volume 80.4 fL (80.0-100.0); Monocytes # (auto) 0.7 10 ^3/uL (0-1.3); Monocytes % (auto) 11.4 % (0.0-12.0); Neutrophils % (auto) 55.2 % (37.0-80.0); Platelet Count (auto) 222 10^3/uL (140-450); Red Blood Cells 4.49 10^6/uL (4.0-5.20)
[2024-08-09 08:00] VITALS: PULSE 78; RESP 18; O2SAT 96
[2024-08-09 08:13] VITALS: BP 138/58; PULSE 78; RESP 18; TEMP 98; O2SAT 96
[2024-08-09] MEDS: cefTRIAXone 1GM/50ML D5W 50 ML IV SCH (09:27)
--- NOTE | 2024-08-09 11:49 | DVHDS2 ---
Discharge Summary Date of Admission Aug 08, 2024 at 05:02 Date of Discharge: Aug 09, 2024 Admitting Diagnosis Rectal bleeding Wounds: None Labs/Diagnostic Data: Laboratory Results Test 08/09/24 05:53 08/08/24 18:15 White Blood Count 6.4 10^3/uL (4.4-10.8) Red Blood Count 4.49 10^6/uL (4.0-5.20) Hemoglobin 11.5 g/dL (12.2-16.2) Hematocrit 36.1 % (36.0-46.0) Mean Corpuscular Volume 80.4 fL (80.0-100.0) Mean Corpuscular Hemoglobin 25.6 pg (28.0-32.0) Mean Corpuscular Hemoglobin Concent 31.8 g/dL (32.0-36.0) Red Cell Distribution Width 15.0 % (11.8-14.3) Platelet Count 222 10^3/uL (140-450) Mean Platelet Volume 8.4 fL (6.9-10.8) Neutrophils (%) (Auto) 55.2 % (37.0-80.0) Lymphocytes (%) (Auto) 29.0 % (10.0-50.0) Monocytes (%) (Auto) 11.4 % (0.0-12.0) Eosinophils (%) (Auto) 3.8 % (0.0-7.0) Basophils (%) (Auto) 0.6 % (0.0-2.0) Neutrophils # (Auto) 3.5 10 ^3/uL (1.6-8.6) Lymphocytes # (Auto) 1.8 10 ^3/uL (0.4-5.4) Monocytes # (Auto) 0.7 10 ^3/uL (0-1.3) Eosinophils # (Auto) 0.2 10 ^3/uL (0-0.8) Basophils # (Auto) 0 10 ^3/uL (0-0.2) Nucleated Red Blood Cells 0.0 % Sodium Level 141 mmol/L (136-145) Potassium Level 3.7 mmol/L (3.5-5.1) Chloride Level 109 mmol/L (98-107) Carbon Dioxide Level 26 mmol/L (20-31) Anion Gap 6 (5-15) Blood Urea Nitrogen 10 mg/dL (9-23) Creatinine 0.89 mg/dL (0.550-1.02) Glomerular Filtration Rate Calc 77 mL/min (>90) BUN/Creatinine Ratio 11.2 (10.0-20.0) Serum Glucose 116 mg/dL (74-106) Calcium Level 9.6 mg/dL (8.7-10.4) Urine Color Light-yellow (Yellow) Urine Clarity Clear (Clear) Urine pH 5.0 (5.0-9.0) Urine Specific [place] 1.021 (1.001-1.035) Urine Protein Negative (Negative) Urine Ketones Negative (Negative) Urine Blood Negative /uL (Negative) Urine Nitrite Negative (Negative) Urine Bilirubin Negative (Negative) Urine Urobilinogen Normal mg/dL (Negative) Urine Leukocyte Esterase Negative /uL (Negative) Urine RBC <1 /hpf (0 - 4) Urine WBC 1 /hpf (0 - 5) Urine Squamous Epithelial Cells Few /hpf (<5) Urine Bacteria None seen /hpf (None Seen) Urine Mucus Few (None Seen) Urine Glucose Normal mg/dL (Normal) Other Laboratory Tests 08/09/24 05:53 Brief Hx & Hospital Course: 53 yr old female came in for rectal bleeding hemoglobin 13.4 and stable and no more active bleeding at the time of discharge vital signs are stable per patient she was seen by GI . But no notes in the system discharged home to follow up with the GI Dr. Will Salcedo as an outpatient for possible colonoscopy Consults/Reason for consult GI consult by Dr Murguia Operations or Procedures CT abdomen pelvis without contrast Condition at Discharge: Fair Final Diagnosis/Problems List Rectal bleeding hemoglobin stable at 13.4 Diverticulosis, no diverticulitis: Consult for GI decoration checker pantoprazole Rocephin Flagyl Hypertension : Amlodipine atenolol TIA Asthma Discharge Disposition: Home Discharge Instruct/Medications Diet: Regular Activity: Light activity Follow Up/Referral: GI Dr. Will Salcedo in 10 days for possible colonoscopy Medications: none 35 (Time taken for for discharge summary 35 minutes) Discharge Statement: "Patient was advised to return to the ER or call 911 if any headaches, dizziness, shortness of breath, chest pain, abdominal pain, bleeding, fevers, or worsening of medical condition. Patient was counseled about treatment plan, medications, possible side effects, patientverbalized understanding. All questions were answered to the best of my ability. This discharge took greater then 30 minutes in planning, reviewing documentation, counseling the patient, and discussing with other team members." ASSESSMENT ASSESSMENT Hospital Course Uneventful Assessment Rectal bleeding hemoglobin stable at 13.4 Diverticulosis, no diverticulitis: Consult for GI decoration checker pantoprazole Rocephin Flagyl Hypertension : Amlodipine atenolol TIA Asthma Date of Service: Aug 09, 2024 Billing Provider: DEMARIO JOHNSON MD Common Visit Codes: [id number]-JUR/[id number] DISCH DAY >30min DEMARIO JHONSON MD Aug 09, 2024 11:48
[2024-08-09 13:00] VITALS: BP 135/85; PULSE 69; RESP 20; TEMP 97.8; O2SAT 99
--- NOTE | 2024-08-09 14:34 | DVHINCON2 ---
Date of service: Aug 08, [address] Jackson Reason for Consultation GI bleed History of Present Illness 53 y/o F pt here with c/o hematochezia. She reports having few episodes of blood in stool yest, associated with mild abd pain. No GIB since ED arrival today. No melena/N/V/fever/chills. Never had EGD/colo. Mother had Crohns disea. On Aspirin, last dose 3-4 days ago Past Medical History Reviewed Past Surgical History Reviewed Family History: Alcoholism G8 FATHER Colon cancer grandmother FH: CHF (congestive heart failure) G8 FATHER FH: Crohn's disease G8 MOTHER FH: cancer G8 MOTHER Allergies: Coded Allergies: Penicillins (Verified Allergy, Severe, 01/15/20) Lisinopril (Verified Allergy, Unknown, Angioedema, 09/06/21) Home Meds Active Scripts Furosemide (Lasix) 20 Mg Tb, 1 TAB PO DAILY, #10 TAB 0 Refills Prov:WILL AVLAREZ MD 07/08/24 Methylprednisolone (Medrol Dosepak) 4 Mg Gamaliel, 4 MG PO UD, #21 TAB UAD Prov:WILL ALVAREZ MD 07/08/24 Azithromycin (ZITHROMAX TABLET) 250 Mg Tb, 250 MG PO DAILY, #6 TAB take 2 tabs the first day, then one tab until finish Prov:WILL ALVAREZ MD 07/08/24 Hydrocodone-Acetaminophen (Hydrocodone Bitartrate/AC 5-325 mg) 1 Tab Tab, 1 TAB PO Q8HPRN PRN, #20 TAB Prov:WILL ALVAREZ MD 06/05/24 Budesonide-Formoterol Fumarate (Budesonide/Formoterol Fum 80-4.5 Mcg/Act) 1 Aer Aer, 1 AER IN BID for 30 Days, #1 AER 2 Refills Prov:ERICKA DAMON RESIDENT 04/08/24 Aspirin (Aspirin Low Dose) 81 Mg Tab, 81 MG PO DAILY for 30 Days, #30 TAB Prov:ERICKA DAMON RESIDENT 04/08/24 Ascorbic Acid (VITAMIN C TABLET) 500 Mg Tb, 1 TAB PO DAILY for 30 Days, #30 TAB 3 Refills Prov:ERICKA DAMON 04/08/24 Albuterol Sulfate (VENTOLIN MDI) 90 Mcg Ih, 180 MCG IN Q6HP PRN for SHORTNESS OF BREATH for 30 Days, #1 MCG Prov:ERICKA DAMON RESIDENT 04/08/24 Pantoprazole Sodium Sesquihydr (Protonix) 40 Mg Tab, 40 MG PO DAILY, #30 TAB Prov:JANINE BEST MD 12/27/23 Reported Medications Alpha Tocopheryl Acid Succinat (VITAMIN E) 100 Unit Tab, 100 UNIT PO, TAB 09/04/21 Carisoprodol (Soma) 350 Mg Tab, 350 MG PO Q6HP, TAB 09/04/21 Lorazepam (Ativan) 0.5 Mg Tab, 1 TAB PO DAILY PRN for ANXIETY, #30 TAB 09/04/21 Clonidine Hydrochloride (Clonidine Hcl) 0.1 Mg Tab, 0.1 MG PO HS for 30 Days, MG 09/04/21 Amlodipine Besylate (Amlodipine Besylate) 5 Mg Tab, 10 MG PO DAILY for 30 Days, MG 09/04/21 Atenolol (Atenolol) 25 Mg Tab, 25 MG PO DAILY for 30 Days, MG 09/04/21 Current Medications Current Medications Medications (Trade) Dose Ordered Sig/Roosevelt Route PRN Reason Start Time Stop Time Status Last Admin Ceftriaxone Sodium 50 ml @ 100 mls/hr DAILY@09 IV 08/09/24 09:00 08/09/24 09:27 Acetaminophen/ Hydrocodone Bitart ([place] 5/325MG Tab) 1 tab Q6HPRN PRN PO MODERATE PAIN (4-6 PAIN SCALE) 08/09/24 05:15 08/09/24 13:54 Review of Systems 14 point ROS neg except mentioned above in HPI Vital Signs Vital Signs Date Time Temp Pulse Resp B/P (MAP) Pulse Ox O2 Delivery O2 Flow Rate FiO2 08/09/24 09:31 138/58 08/09/24 09:30 78 08/09/24 08:13 98.0 18 96 98.0 08/08/24 16:34 Room Air* 0 21 Physical Exam GE: in no acute distress CVS: S1S2+ Lungs: clear Abdomen: soft, nondistended, nontender, BS+ Labs/Diagnostic Data Labs Test 08/09/24 05:53 08/08/24 18:15 Range/Units White Blood Count 6.4 4.4-10.8 10^3/uL Red Blood Count 4.49 4.0-5.20 10^6/uL Hemoglobin 11.5 L 12.2-16.2 g/dL Hematocrit 36.1 36.0-46.0 % Mean Corpuscular Volume 80.4 80.0-100.0 fL Mean Corpuscular Hemoglobin 25.6 L 28.0-32.0 pg Mean Corpuscular Hemoglobin Concent 31.8 L 32.0-36.0 g/dL Red Cell Distribution Width 15.0 H 11.8-14.3 % Platelet Count 222 140-450 10^3/uL Mean Platelet Volume 8.4 6.9-10.8 fL Neutrophils (%) (Auto) 55.2 37.0-80.0 % Lymphocytes (%) (Auto) 29.0 10.0-50.0 % Monocytes (%) (Auto) 11.4 0.0-12.0 % Eosinophils (%) (Auto) 3.8 0.0-7.0 % Basophils (%) (Auto) 0.6 0.0-2.0 % Neutrophils # (Auto) 3.5 1.6-8.6 10 ^3/uL Lymphocytes # (Auto) 1.8 0.4-5.4 10 ^3/uL Monocytes # (Auto) 0.7 0-1.3 10 ^3/uL Eosinophils # (Auto) 0.2 0-0.8 10 ^3/uL Basophils # (Auto) 0 0-0.2 10 ^3/uL Nucleated Red Blood Cells 0.0 % Sodium Level 141 136-145 mmol/L Potassium Level 3.7 3.5-5.1 mmol/L Chloride Level 109 H 98-107 mmol/L Carbon Dioxide Level 26 20-31 mmol/L Anion Gap 6 5-15 Blood Urea Nitrogen 10 9-23 mg/dL Creatinine 0.89 0.550-1.02 mg/dL Glomerular Filtration Rate Calc 77 >90 mL/min BUN/Creatinine Ratio 11.2 10.0-20.0 Serum Glucose 116 H 74-106 mg/dL Calcium Level 9.6 8.7-10.4 mg/dL Urine Color Light-yellow Yellow Urine Clarity Clear Clear Urine pH 5.0 5.0-9.0 Urine Specific [place] 1.021 1.001-1.035 Urine Protein Negative Negative Urine Ketones Negative Negative Urine Blood Negative Negative /uL Urine Nitrite Negative Negative Urine Bilirubin Negative Negative Urine Urobilinogen Normal Negative mg/dL Urine Leukocyte Esterase Negative Negative /uL Urine RBC <1 0 - 4 /hpf Urine WBC 1 0 - 5 /hpf Urine Squamous Epithelial Cells Few <5 /hpf Urine Bacteria None seen None Seen /hpf Urine Mucus Few None Seen Urine Glucose Normal Normal mg/dL Assessment #Hematochezia #Diverticulosis #Obesity Plan/Recommendation -Monitor Hb, keep >7 -If hematochezia persists or Hb drop noted, consider colonoscopy in pt. If Hb stable and no further bleeding, colonoscopy as out pt, pt never had one -Avoid constipation -GI clinic f/u with Dr Salcedo as out pt -Care plan discussed with pt in detail Thank you for the consult Plan discussed with: Patient, Other ALICIA PUCKETT MD Aug 09, 2024 14:34
== END 2024-08-09 17:48 | disposition home or self-care (01) | DRG 244 ==
LOC: ER 03:49 → OVERFLOW 05:02 → EAST 22:22
PROVIDERS: ADMIT Nurse Practitioner; ATTEND Family Medicine
DX: K57.31 Diverticulosis of large intestine without perforation or abscess with bleeding (principal); G45.9 Transient cerebral ischemic attack, unspecified; E66.01 Morbid (severe) obesity due to excess calories; I10 Essential (primary) hypertension; J45.909 Unspecified asthma, uncomplicated; Z88.0 Allergy status to penicillin; Z82.49 Family history of ischemic heart disease and other diseases of the circulatory system; Z80.0 Family history of malignant neoplasm of digestive organs; Z86.73 Personal history of transient ischemic attack (TIA), and cerebral infarction without residual deficits; Z68.41 Body mass index [BMI] 40.0-44.9, adult; Z79.82 Long term (current) use of aspirin; Z79.899 Other long term (current) drug therapy
CPT/HCPCS: 36415; 80048; 81001; 85014; 85018; 85025; 86850; 86900; 86901; 96365; 96375; G0378; J2470; J3490

== ENCOUNTER 2025-01-07 01:55 | Emergency (ER) | payer MEDICAID ==
[~2025-01-07] VITALS: Ht 154.9 cm; Wt 101.9 kg
[2025-01-07 02:19] LABS: Eosinophils # (auto) 0.1 10 ^3/uL (0-0.8); Hematocrit 45.9 % (36.0-46.0); Monocytes # (auto) 0.6 10 ^3/uL (0-1.3); Neutrophils # (auto) 3.9 10 ^3/uL (1.6-8.6); Nucleated Red Blood Cells % 0.1 %
[2025-01-07 02:21] LABS: Basophils # (auto) 0.1 10 ^3/uL (0-0.2); Eosinophils % (auto) 1.3 % (0.0-7.0); Hemoglobin 14.8 g/dL (12.2-16.2); Lymphocytes % (auto) 29.8 % (10.0-50.0); Mean Corpuscular Hgb Conc. 32.3 g/dL (32.0-36.0); Mean Corpuscular Volume 74.1 fL (80.0-100.0); Monocytes % (auto) 8.4 % (0.0-12.0); Neutrophils % (auto) 59.5 % (37.0-80.0); Platelet Count (auto) 289 10^3/uL (140-450); Red Cell Distribution Width 17.6 % (11.8-14.3); White Blood Cell 6.6 10^3/uL (4.4-10.8)
[2025-01-07] MEDS: IPRATROPIUM BROM 0.5 MG/2.5ML INH SOL NEB ONE (02:21)
[2025-01-07] MEDS: ALBUTEROL SULF 2.5 MG/0.5ML(0.5%) NEB SOLN NEB ONE (02:21)
[2025-01-07 02:30] LABS: Chloride 104 mmol/L (98-107); Sodium 139 mmol/L (136-145)
[2025-01-07 02:31] LABS: Anion Gap 12 (5-15); Carbon Dioxide 23 mmol/L (20-31)
[2025-01-07 02:32] LABS: Calcium 9.7 mg/dL (8.7-10.4)
[2025-01-07] MEDS: DexAMETHasone SOD PHOS 10MG/1ML VIAL INJ IM ONE (02:33)
[2025-01-07 02:34] LABS: Potassium 3.4 mmol/L (3.5-5.1)
[2025-01-07] MEDS: cloNIDine HCL 0.1 MG TAB PO ONE (02:34)
[2025-01-07 02:37] LABS: BUN/Creatinine Ratio 8.7 (10.0-20.0)
--- NOTE | 2025-01-07 02:38 | ED.PDOC ---
SOB-HPI HPI Comments 54-year-old female who came to ER for shortness of breath. Patient does have history of asthma. States for the past 3 hours, she has been having dry nonproductive cough, chest tightness, shortness a breath and wheezing. Inhalers taken at home h midway as offered no relief. Worsening of symptoms prompted patient to come to the emergency room. Patient is saturating 99% on room air upon arrival Chief Complaint: Shortness of Breath Time Seen by MD: 02:36 Primary Care Provider: SENIA Reviewed notes: Nurses Notes Information Source: Patient Mode of Arrival: Ambulatory Severity: Moderate Timing: Hours Duration: Since onset Context: At Rest PE Risk Factors: None History of: Asthma Prehospital treatment: Breathing Tx Associated Signs and Symptoms: Wheeze, Cough Quality: Tightness Radiation: No Radiation Location: Chest (R), Chest (L) If cough with SOB: Non-Productive Past Medical History PAST MEDICAL HISTORY: Anxiety, Asthma, High Lipids, HTN Surgical History: , Hernia Repair SPRING FORGER History: Denies all SPRING FORGER Hx, Other Family History Family History: No family hx of Cancer, Family hx of DM, Family hx of heart mana, Family hx of HTN Family History (Other): crohn's disease Social History Smoker: Non-Smoker Alcohol: Occasionally Drugs: Denies Drug Use Lives In: Home Constitutional: denies: chills, diaphoresis, fatigue, fever, malaise, sweats, weakness, others EENTM: denies: blurred vision, double vision, ear bleeding, ear discharge, ear drainage, ear pain, ear ringing, eye pain, eye redness, hearing loss, mouth pain, mouth swelling, nasal discharge, nose bleeding, nose congestion, nose pain, photophobia, tearing, throat pain, throat swelling, voice changes, others Respiratory: reports: cough, SOB at rest, shortness of breath, wheezing; denies: hemoptysis, orthopnea, SOB with excertion, stridor, others Cardiovascular: denies: chest pain, dizzy spells, diaphoresis, Dyspnea on exertion, edema, irregular heart beat, left arm pain, lightheadedness, palpitations, PND, syncope, others Gastrointestinal: denies: abdomen distended, abdominal pain, blood streaked bowels, constipated, diarrhea, dysphagia, difficulty swallowing, hematemesis, melena, nausea, poor appetite, poor fluid intake, rectal bleeding, rectal pain, vomiting, others Genitourinary: denies: abnormal vagina bleeding, burning, dyspareunia, dysuria, flank pain, frequency, hematuria, incontinence, pain, , vagina disch arge, urgency, others Neurological: denies: dizziness, fainting, headache, left sided numbness, left sided weakness, numbness, paresthesia, pre-existing deficit, right sided numbness, right sided weakness, seizure, speech problems, tingling, tremors, weakness, others Musculoskeletal: denies: back pain, gout, joint pain, joint swelling, muscle pain, muscle stiffness, neck pain, others Integumetry: denies: bruises, change in color, change in hair/nails, dryness, laceration, lesions, lumps, rash, wounds, others Allergic/Immunocompromised: denies: Difficulty Healing, Frequent Infections, Hives, Itching, others Hematologic/Lymphatic: denies: anemia, blood clots, easy bleeding, easy bruising, swollen glands, others Endocrine: denies: excessive hunger, excessive sweating, excessive thirst, excessive urination, flushing, intolerance to cold, intolerance to heat, unexplained weight gain, unexplained weight loss, others Psychiatric: reports: anxiety; denies: bipolar disorder, depression, hopeless, panic disorder, schizophrenia, sleepless, suicidal, others Physical Exam General Appearance: No Apparent Distress, Normal HEENT: Normal ENT Inspection, Pharynx Normal, TMs Normal Neck: Full Range of Motion, Non-Tender, Normal, Normal Inspection Respiratory: Chest Non-Tender, No Accessory Muscle Use, Respiratory Distress, Wheezing Cardiovascular: No Edema, No JVD, No Murmur, No Gallop, Normal Peripheral Pulses, Regular Rate/Rhythm Breast Exam: Deferred Gastrointestinal: No Organomegaly, Non Tender, No Pulsatile Mass, Normal Bowel Sounds, Soft Genitalia: Deferred Pelvic: Deferred Rectal: Deferred Extremities: No calf tenderness, Normal capillary refill, Normal inspection, Normal range of motion, Non-tender, No pedal edema Musculoskeletal : Apperance: Normal Neurologic: Alert, backwinder II-XII nml as Tested, No Motor Deficits, Normal Affect, Normal Mood, No Sensory Deficits Cerebellar Function: Normal Reflexes: Normal Skin: Dry, Normal Color, Warm Lymphatic: No Adenopathy Was a procedure done? Was a procedure done?: No Differential Dx Differential Diagnosis: Asthma, Bronchitis, COPD, Hyperventilation, Pneumonia, Respiratory Distress X-Ray, Labs, Meds, VS Vital Signs Date Time Temp Pulse Resp B/P (MAP) Pulse Ox O2 Delivery O2 Flow Rate FiO2 01/07/25 02:34 219/141 01/07/25 02:22 20 99 Room Air* 0 21 01/07/25 02:08 100 01/07/25 02:00 98.5 105 22 195/101 (132) 99 98.5 Lab Test 01/07/25 03:05 01/07/25 02:10 Range/Units Troponin I High Sensitivity 4 5 </=34 ng/L White Blood Count 6.6 4.4-10.8 10^3/uL Red Blood Count 6.20 H 4.0-5.20 10^6/uL Hemoglobin 14.8 12.2-16.2 g/dL Hematocrit 45.9 36.0-46.0 % Mean Corpuscular Volume 74.1 L 80.0-100.0 fL Mean Corpuscular Hemoglobin 24.0 L 28.0-32.0 pg Mean Corpuscular Hemoglobin Concent 32.3 32.0-36.0 g/dL Red Cell Distribution Width 17.6 H 11.8-14.3 % Platelet Count 289 140-450 10^3/uL Mean Platelet Volume 7.9 6.9-10.8 fL Neutrophils (%) (Auto) 59.5 37.0-80.0 % Lymphocytes (%) (Auto) 29.8 10.0-50.0 % Monocytes (%) (Auto) 8.4 0.0-12.0 % Eosinophils (%) (Auto) 1.3 0.0-7.0 % Basophils (%) (Auto) 1.0 0.0-2.0 % Neutrophils # (Auto) 3.9 1.6-8.6 10 ^3/uL Lymphocytes # (Auto) 2.0 0.4-5.4 10 ^3/uL Monocytes # (Auto) 0.6 0-1.3 10 ^3/uL Eosinophils # (Auto) 0.1 0-0.8 10 ^3/uL Basophils # (Auto) 0.1 0-0.2 10 ^3/uL Nucleated Red Blood Cells 0.1 % D-Dimer, Quantitative 0.33 0.0-0.49 mg/L FEU Sodium Level 139 136-145 mmol/L Potassium Level 3.4 L 3.5-5.1 mmol/L Chloride Level 104 98-107 mmol/L Carbon Dioxide Level 23 20-31 mmol/L Anion Gap 12 5-15 Blood Urea Nitrogen 8 L 9-23 mg/dL Creatinine 0.92 0.550-1.02 mg/dL Glomerular Filtration Rate Calc 74 >90 mL/min BUN/Creatinine Ratio 8.7 L 10.0-20.0 Serum Glucose 106 74-106 mg/dL Calcium Level 9.7 8.7-10.4 mg/dL Current Medications Medications (Trade) Dose Ordered Sig/Roosevelt Route Start Time Stop Time Status Last Admin Albuterol (Ventolin Medneb) 5 mg ONCE ONCE NEB 01/07/25 02:15 01/07/25 02:16 DC 01/07/25 02:21 Ipratropium Buhl (Atrovent Medneb) 0.5 mg ONCE ONCE NEB 01/07/25 02:15 01/07/25 02:16 DC 01/07/25 02:21 Dexamethasone Sodium Phosphate (Decadron Injection) 10 mg ONCE ONCE IM 01/07/25 02:15 01/07/25 02:16 DC 01/07/25 02:33 Clonidine HCl (Catapres Tablet) 0.2 mg ONCE ONCE PO 01/07/25 02:15 01/07/25 02:16 DC 01/07/25 02:34 CHEST RADIOGRAPH Indication: Shortness of breath Technique: Single frontal view of the chest was obtained COMPARISON: XY CHEST XRAY 1 VIEW on DOS: 08/07/24, XY CHEST PORTABLE on DOS: 07/07/24, XY CHEST PORTABLE on DOS: 04/09/24, XY CHEST PORTABLE on DOS: 04/06/24, XY CHEST PORTABLE on DOS: 12/25/23 FINDINGS: Lines and Tubes: None Lungs: Clear Pleura: No effusion. No pneumothorax. Cardiomediastinal contours: Unremarkable Bones: Unremarkable IMPRESSION: 1. No acute disease. Time of 1ST Reevaluation: 02:34 Reevaluation 1ST: Unchanged Patient Education/Counseling: Diagnosis, Treatment Family Education/Counseling: No Family Present Departure 1 Departure Time of Disposition: 03:52 (Patient likely with asthma exacerbation. Patient is now breathing comfortably with clear lungs. We will discharge patient home with outpatient follow up) Impression: Primary Impression: Acute asthma exacerbation Qualified Codes: J45.21 - Mild intermittent asthma with (acute) exacerbation Additional Impression: Shortness of breath Disposition: 01 HOME / SELF CARE / HOMELESS Condition: Stable Additional Instructions: You likely had an asthma exacerbation. You should use your inhaler as directed. Your prescribed steroids. Please take as directed. It is important to follow up with the regular doctor within 1 week. If your symptoms worsen or you have any other concerns please return to the emergency room. e-Prescriptions Prednisone (Prednisone) 20 Mg Tab 40 MG PO DAILY for 5 Days, #10 MG Prov: FOUZIA NOWAK MD 01/07/25 Discharged With: Self Critical Care Note Critical Care Time?: Yes (35 min-critical care time only) Critical care comment: Shortness of breath Stability Stability form required: No Heart Score Heart Score: Heart Score Response (Comments) Value History Moderate Suspicious 1 EKG Repolarization Disturb 1 Age 45-64 1 Risk Factors >3 or Hx ASHD 2 Troponin Normal limit 0 Total 5 I personally scribed for FOUZIA NOWAK MD ([email or web address]) on 01/07/25 at 02:38. Electronically submitted by Abad Mendoza ([email or web address]). I personally scribed for FOUZIA NOWAK MD ([email or web address]) on 01/07/25 at 03:51. Electronically submitted by Abad Mendoza ([email or web address]). FOUZIA NOWAK MD January 07, 2025 02:38
[2025-01-07 02:41] LABS: Blood Urea Nitrogen 8 mg/dL (9-23); Glucose 106 mg/dL (74-106)
--- NOTE | 2025-01-07 03:38 | DVH ---
CHEST RADIOGRAPH Indication: Shortness of breath Technique: Single frontal view of the chest was obtained COMPARISON: XY CHEST XRAY 1 VIEW on DOS: 08/07/24, XY CHEST PORTABLE on DOS: 07/07/24, XY CHEST PORTABL E on DOS: 04/09/24, XY CHEST PORTABLE on DOS: 04/06/24, XY CHEST PORTABLE on DOS: 12/25/23 FINDINGS: Lines and Tubes: None Lungs: Clear Pleura: No effusion. No pneumothorax. Cardiomediastinal contours: Unremarkable Bones: Unremarkable IMPRESSION: 1. No acute disease.
[2025-01-07] MEDS ORDERED: PRED20TA2 PO (03:53)
[2025-01-07 04:30] VITALS: BP 167/81; PULSE 95; RESP 20; TEMP 98.5; O2SAT 97
== END 2025-01-07 06:01 | disposition home or self-care (01) ==
LOC: ER 01:55
DX: J45.901 Unspecified asthma with (acute) exacerbation (principal); F41.9 Anxiety disorder, unspecified; E78.5 Hyperlipidemia, unspecified; I10 Essential (primary) hypertension; Z98.890 Other specified postprocedural states
CPT/HCPCS: 36415; 71045; 80048; 84484; 85025; 85379; 94640; 96372; 99284; J1100

== ENCOUNTER 2025-01-25 13:28 | Emergency (ER) | payer MEDICAID ==
[~2025-01-25] VITALS: Ht 160 cm; Wt 82.0 kg
[~2025-01-25 13:28] MED LIST changes: +PRED20TA2 PO
[2025-01-25 14:03] LABS: Basophils # (auto) 0.1 10 ^3/uL (0-0.2); Basophils % (auto) 0.8 % (0.0-2.0); Eosinophils # (auto) 0.1 10 ^3/uL (0-0.8); Eosinophils % (auto) 1.2 % (0.0-7.0); Hematocrit 44.1 % (36.0-46.0); Hemoglobin 14.1 g/dL (12.2-16.2); Lymphocytes # (auto) 1.2 10 ^3/uL (0.4-5.4); Lymphocytes % (auto) 18.5 % (10.0-50.0); Mean Corpuscular Hemoglobin 23.7 pg (28.0-32.0); Mean Corpuscular Hgb Conc. 32.1 g/dL (32.0-36.0); Mean Corpuscular Volume 73.9 fL (80.0-100.0); Monocytes # (auto) 0.5 10 ^3/uL (0-1.3); Neutrophils # (auto) 4.8 10 ^3/uL (1.6-8.6); Neutrophils % (auto) 71.5 % (37.0-80.0); Nucleated Red Blood Cells % 0.1 %; Platelet Count (auto) 248 10^3/uL (140-450); Red Blood Cells 5.97 10^6/uL (4.0-5.20); White Blood Cell 6.7 10^3/uL (4.4-10.8)
[2025-01-25 14:21] LABS: Alanine Aminotransferase 31 U/L (7-40); Albumin 4.6 g/dL (3.2-4.8); Alkaline Phosphatase 86 U/L (46-116); Anion Gap 10 (5-15); Aspartate Aminotransferase 37 U/L (13-40); BUN/Creatinine Ratio 6.8 (10.0-20.0); Calcium 9.3 mg/dL (8.7-10.4); Carbon Dioxide 25 mmol/L (20-31); Chloride 106 mmol/L (98-107); Potassium 3.7 mmol/L (3.5-5.1); Sodium 141 mmol/L (136-145); Total Protein 8.2 g/dL (5.7-8.2)
[2025-01-25 14:22] LABS: Bilirubin, Total 0.8 mg/dL (0.2-1.0)
[2025-01-25 14:23] LABS: Blood Urea Nitrogen 6 mg/dL (9-23); Glucose 118 mg/dL (74-106)
--- NOTE | 2025-01-25 14:30 | ED.PDOC ---
SOB-HPI HPI Comments HPI: 54y F who presents to the ED via EMS for chief complaint of rib pain. - pt states she was driving earlier his AM and states she started to L sided rib pain when attempting to cough which started earlier this AM - pt states she continued to have symptoms while at home later in the day and called EMS to the scene - pt states in the ED, she is having associated shortness of breath but otherwise denies any other symptoms - pt otherwise has noted stable vitals in the ED Past Medical history: CVA, asthma, HTN, anxiety, arthritis Past Surgical history: hernia Medications: albuterol, amlodipine, atenolol, Allergies: penicillin Social History: endorses ETOH, endorses tobacco use, denies drug use CALISTA BRYSON: HPI: Poor Historian. White phlegm productive cough since yesterday. Left ribcage pain only when she coughs. Mild shortness of breath. REVIEW OF SYSTEMS: CONSTITUTIONAL: Denies acute: fever, diaphoresis, chills, HEAD: Denies acute: headache, photophobia Eyes: Denies acute: Double vision, vision loss, eye pain, eye discharge. EARS: Denies acute: tinnitus, hearing loss, ear discharge, ear pain, THROAT: Denies acute: sore throat, swelling, difficulty swallowing , pain with swallowing, change in voice. NECK: Denies acute: neck pain, neck swelling, stiff neck. HEART: Denies acute : palpitations, LUNGS: Denies acute: , wheezing, , hemoptysis ABDOMEN: Denies acute: abdominal pain, Nausea, Vomiting, diarrhea, melena , hematemesis, hematochezia SKIN: Denies acute: rash, redness, lesions, itchiness. EXTREMITIES: Denies acute: calf pain, numbness, tingling, weakness, denies pain in extremity. Denies acute: Low back pain. Neuro: Denies acute: focal neurological deficit, motor or sensory focal neurological deficit, tremors, seizure like activity, confusion, dizziness, change in mental status, loss of bowel or bladder function, cauda equina like symptoms. : Denies acute: dysuria, hematuria, flank pain, increase in urinary frequency. PSYCH: Denies acute: hallucination, suicidal ideation, homicidal ideation. FEMALE: Denies acute: abnormal vaginal bleeding, foul odor, unusual discharge. PHYSICAL EXAM: General: ----mild----acute distress, awake and alert. Head: normocephalic, atraumatic. Neck: supple, trachea is midline, no swelling. Throat: Normal phonation. Eyes:, no erythema, no purulent discharge, no proptosis, no icterus. Heart: regular rate, regular rhythm, no significant murmur appreciated. Lungs: no apparent respiratory distress, Able to speak in full sentences. No wheezing, no rhonchi, no crackles. No stridors Clear to auscultation bilaterally. Abdomen: non tender to palpation, non distended, soft, no guarding, no rebound, + bowel sounds. Neuro: Awake, Alert, oriented to name, self, situation, follows commands GCS=15. Speech is normal. Skin: no petechia, no purpura, no cyanosis, non-pale, not jaundice. Lower extremities: --no - Pitting edema no deformity, no focal swelling, no calf TTP. Makes eye contact. moves all four extremities. Face: no apparent facial droop. Ambulating in the ED independently. 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 Was a procedure done?: No Differential Dx Differential Diagnosis: Other (DDx include ACS, unstable angina, anxiety, PE, pneumothroax, neoplasm, cardiac ischemia, COPD, asthma, CHF, pleural effusion, tobacco abuse, pneumonia, hypoxia, hypercapnia, anemia., infection/sepsis., pulmonary edema. Asthma, Cardiac tamponade, infection.) X-Ray, Labs, Meds, VS Vital Signs Date Time Temp Pulse Resp B/P (MAP) Pulse Ox O2 Delivery O2 Flow Rate FiO2 01/25/25 18:25 116 17 160/95 (116) 01/25/25 17:40 123 19 185/103 (130) 97 01/25/25 17:07 213/117 01/25/25 16:50 98.1 101 18 213/117 (149) 97 98.1 01/25/25 16:34 18 98 Room Air* 0 21 01/25/25 16:30 85 20 96 Room Air* 0 21 01/25/25 15:25 97.8 108 18 152/93 (112) 99 97.8 01/25/25 13:36 105 01/25/25 13:30 97.5 120 18 160/98 (118) 99 97.5 Lab Test 01/25/25 17:00 01/25/25 15:00 01/25/25 14:54 01/25/25 13:47 Range/Units Troponin I High Sensitivity 4 4 4 </=34 ng/L Influenza Type A Antigen Negative Negative Influenza Type B Antigen Negative Negative SARS-CoV-2 Antigen (Rapid) Negative NEGATIVE White Blood Count 6.7 4.4-10.8 10^3/uL Red Blood Count 5.97 H 4.0-5.20 10^6/uL Hemoglobin 14.1 12.2-16.2 g/dL Hematocrit 44.1 36.0-46.0 % Mean Corpuscular Volume 73.9 L 80.0-100.0 fL Mean Corpuscular Hemoglobin 23.7 L 28.0-32.0 pg Mean Corpuscular Hemoglobin Concent 32.1 32.0-36.0 g/dL Red Cell Distribution Width 17.0 H 11.8-14.3 % Platelet Count 248 140-450 10^3/uL Mean Platelet Volume 8.1 6.9-10.8 fL Neutrophils (%) (Auto) 71.5 37.0-80.0 % Lymphocytes (%) (Auto) 18.5 10.0-50.0 % Monocytes (%) (Auto) 8.0 0.0-12.0 % Eosinophils (%) (Auto) 1.2 0.0-7.0 % Basophils (%) (Auto) 0.8 0.0-2.0 % Neutrophils # (Auto) 4.8 1.6-8.6 10 ^3/uL Lymphocytes # (Auto) 1.2 0.4-5.4 10 ^3/uL Monocytes # (Auto) 0.5 0-1.3 10 ^3/uL Eosinophils # (Auto) 0.1 0-0.8 10 ^3/uL Basophils # (Auto) 0.1 0-0.2 10 ^3/uL Nucleated Red Blood Cells 0.1 % D-Dimer, Quantitative 0.33 0.0-0.49 mg/L FEU Sodium Level 141 136-145 mmol/L Potassium Level 3.7 3.5-5.1 mmol/L Chloride Level 106 98-107 mmol/L Carbon Dioxide Level 25 20-31 mmol/L Anion Gap 10 5-15 Blood Urea Nitrogen 6 L 9-23 mg/dL Creatinine 0.88 0.550-1.02 mg/dL Glomerular Filtration Rate Calc 78 >90 mL/min BUN/Creatinine Ratio 6.8 L 10.0-20.0 Serum Glucose 118 H 74-106 mg/dL Lactic Acid Level 1.2 0.4-2.0 mmol/L Calcium Level 9.3 8.7-10.4 mg/dL Total Bilirubin 0.8 0.2-1.0 mg/dL Aspartate Amino Transferase (AST) 37 13-40 U/L Alanine Aminotransferase (ALT) 31 7-40 U/L Alkaline Phosphatase 86 46-116 U/L B-Type Natriuretic Peptide 18.10 0-100 pg/mL Total Protein 8.2 5.7-8.2 g/dL Albumin 4.6 3.2-4.8 g/dL [place] [id number] Ph: [phone] DIAGNOSTIC IMAGING Diagnostic Imaging Report : [id number] Signed PATIENT: BRAYDON GRIGSBY ANNACCT: [id number] UNIT: [id number] : 1970 LOC: ER ROOM / BED: / AGE / SEX: 54 / F ADM STATUS: REG ER SERVICE [id number] ORDERING PHYSICIAN: AC JUSTICE DO PROCEDURE(s): CXRP - CHEST PORTABLE REASON: L rib cage pain, sob, cough ORDER NUMBER(s): [id number], ACCESSION NUMBER(s): [id number] CHEST RADIOGRAPH Indication: L rib cage pain, sob, cough Technique: Single frontal view of the chest was obtained COMPARISON: XY CHEST PORTABLE on DOS: 01/07/25, XY CHEST XRAY 1 VIEW on DOS: 08/07/24, XY CHEST PORTABLE on DOS: 07/07/24, XY CHEST PORTABLE on DOS: 04/09/24, XY CHEST PORTABLE on DOS: 04/06/24 FINDINGS: Lines and Tubes: None Lungs: Clear Pleura: No effusion. No pneumothorax. Cardiomediastinal contours: Left mid and lower lobe subsegmental atelectasis. Bones: Unremarkable IMPRESSION: Left mid and lower lobe subsegmental atelectasis. ATED BY: HUMZA PHILLIPS MD DICTATED DATE/TIME: 01/25/251427 SIGNED BY: HUMZA PHILLIPS MD SIGNED DATE/TIME: 01/25/251427 CC: Time of 1ST Reevaluation: 00:00 Reevaluation 1ST: Resolved Patient Education/Counseling: Diagnosis, Treatment Family Education/Counseling: No Family Present Comments Patient presented with the above HPI.---cardiac and respiratory---workup was initiated. patient was found with the above mentioned diagnosis. the following medications were ordered: please refer to order lists of meds and tests obtained by myself Dr. Justice. Patient ED course and VS have been stabilized. Patient has been reassessed in the ED and remained in a stable condition. Pertinent incidental findings were discussed with the patient and/or family. Patient/family voices understanding and is agreeable with plan. Patient has been observed in the ED adequate length of time to insure improvement/stability. Escalation of care considered: Consideration of escalation to observation or admission Patient stated she has anxiety and she uses Ativan at home sometimes. Patient was given a dose of Ativan. Patient was given fluid hydration. Patient was slightly tachycardic after the breathing treatment but resolved. Patient was hypertensive here in the ED has not taken her blood pressure medication. She was given hydralazine. Patient was DISCHARGED home in a stable condition. All the reports of any imaging studies that were ordered by myself were reviewed by myself. Departure 1 Departure Time of Disposition: 15:49 Impression: Primary Impression: Rib pain Additional Impressions: Pleuritic chest pain Bronchitis Disposition: HOME / SELF CARE / HOMELESS Condition: Stable Additional Instructions: Additional instructions: You MUST follow-up with your primary care/family doctor in 1 to 2 days. If you are unable to see your primary care/family doctor, please return to our emergency room for re-assessment and re-evaluation in 1 to 2 days. Return to the emergency room here in our facility or to the nearest ER [facility] if your symptoms change or worsen. CONSULTATIONS: you MUST Follow-up for consultation as soon as possible with: -pulmonology and Cardiology in 1-2 days. Please call for appointment You MUST call the consultants office yourself to make an appointment. You may need to arrange that through your insurance and/or your primary/family doctor. If you are unable to see the decorator consultant in 1 to 2 days, you must return to our emergency room (or any other ER of your choice) for re-assessment and re- evaluation. Adequate fluid hydration. Below is a copy of your radiological report for follow up: [place] [address] Ph: [phone] DIAGNOSTIC IMAGING Diagnostic Imaging Report : [id number] Signed PATIENT: BRAYDON GRIGSBY ACCT: [id number] UNIT: [id number] : 1970 LOC: ER ROOM / BED: / AGE / SEX: 54 / F ADM STATUS: REG ER SERVICE 1338 ORDERING PHYSICIAN: AC JUSTICE DO PROCEDURE(s): CXRP - CHEST PORTABLE REASON: L rib cage pain, sob, cough ORDER NUMBER(s): [id number], ACCESSION NUMBER(s): [id number] CHEST RADIOGRAPH Indication: L rib cage pain, sob, cough Technique: Single frontal view of the chest was obtained COMPARISON: XY CHEST PORTABLE on DOS: 01/07/25, XY CHEST XRAY 1 VIEW on DOS: 08/07/24, XY CHEST PORTABLE on DOS: 07/07/24, XY CHEST PORTABLE on DOS: 04/09/24, XY CHEST PORTABLE on DOS: 04/06/24 FINDINGS: Lines and Tubes: None Lungs: Clear Pleura: No effusion. No pneumothorax. Cardiomediastinal contours: Left mid and lower lobe subsegmental atelectasis. Bones: Unremarkable IMPRESSION: Left mid and lower lobe subsegmental atelectasis. ATED BY: HUMZA PHILLIPS MD DICTATED DATE/TIME: 01/25/251427 SIGNED BY: HUMZA PHILLIPS MD SIGNED DATE/TIME: 01/25/251427 CC: Discharged With: Self Critical Care Note Critical Care Time?: No Heart Score Heart Score: Heart Score Response (Comments) Value History Slightly Suspicious 0 EKG Normal 0 Age 45-64 1 Risk Factors 1 or 2 risk factors 1 Troponin Normal limit 0 Total 2 I personally scribed for AC JUSTICE DO ([email or web address]) on 01/25/25 at 14:30. Electronically submitted by Kaleb Magallanes ([email or web address]). I personally scribed for AC JUSTICE DO ([email or web address]) on 01/25/25 at 19:02. Electronically submitted by Kaleb Magallanes ([email or web address]). AC JUSTICE DO January 25, 2025 14:30
[2025-01-25 16:02] LABS: COVID19 ANTIGEN SOFIA FIA NEGATIVE (NEGATIVE); Rapid Influenza A Negative (Negative); Rapid Influenza B Negative (Negative)
[2025-01-25] MEDS: ASPirin-EC 325mg tab PO ONE (16:26)
[2025-01-25 16:30] VITALS: PULSE 85; RESP 20; O2SAT 96
[2025-01-25] MEDS: methylPREDNISolone SOD SUCC 40 MG/ML VL IV ONE (16:30)
[2025-01-25] MEDS: IPRATROPIUM BROM 0.5 MG/2.5ML INH SOL NEB ONE (16:33)
[2025-01-25] MEDS: ALBUTEROL SULF 2.5 MG/0.5ML(0.5%) NEB SOLN NEB ONE (16:34)
[2025-01-25 16:50] VITALS: TEMP 98.1
[2025-01-25] MEDS: hydrALAZINE HCL 20 MG/ML VL IV ONE (17:07)
[2025-01-25 17:40] VITALS: O2SAT 97
[2025-01-25 18:25] VITALS: BP 160/95; PULSE 116; RESP 17
[2025-01-25] MEDS: LORazepam 2MG/ML-1ML VIAL IV ONE (18:47)
--- NOTE | 2025-01-25 19:06 | ECG ---
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
== END 2025-01-25 18:52 | disposition home or self-care (01) ==
LOC: ER 13:28 → EDBD 13:28 → ER 18:52
DX: J40 Bronchitis, not specified as acute or chronic (principal); R07.81 Pleurodynia; R07.89 Other chest pain; I10 Essential (primary) hypertension; E78.5 Hyperlipidemia, unspecified; F41.9 Anxiety disorder, unspecified; Z20.822 Contact with and (suspected) exposure to COVID-19; Z98.890 Other specified postprocedural states; Z88.0 Allergy status to penicillin
CPT/HCPCS: 36415; 71045; 80053; 83605; 83880; 84484; 85025; 85379; 87426; 87804; 93005; 94640; 96374; 96375; 99285; J0360; J2060; J2919

== ENCOUNTER 2025-06-01 19:55 | Inpatient (IN) | payer MEDICAID ==
[~2025-06-01] VITALS: Ht 154.9 cm; Wt 106.5 kg
--- NOTE | 2025-06-01 20:16 | ED.PDOC ---
HPI Comments 54-year-old female came to ER by EMS for chest pains. Have history of hypertension and asthma. 30 minutes prior to arrival, patient was at home when she developed sudden onset midsternal chest pains, pressure, constant, 8/10 intensity, radiating to her back. Also complaining of headaches and blurred vision. On scene noted systolic blood pressure 230. Patient was given nitroglycerin, aspirin, and Zofran while EN route to the ER REVIEW OF SYSTEMS: General: No fever, no chills, or fatigue HEENT: No sore throat, no earache, no congestion, no neck pain. Cardiac: (+) chest pain. No palpitations. Lungs: No shortness of breath, no cough. GI: No nausea, no vomiting, no diarrhea, no constipation, no abdominal pain : No dysuria, frequency, or urgency. No hematuria. Musculoskeletal: No joint pain , no joint swelling, no extremity edema. Skin: No rash, no itching. Neuro: No headache, no dizziness, no weakness EXAM: General: Awake, alert and oriented. No acute distress. Skin: Skin in warm, dry and intact. Appropriate color for ethnicity. HEENT: The head is normocephalic and atraumatic. Conjunctivae are clear without exudates or hemorrhage. Sclera is non-icteric. EOM are intact. No signs of nystagmus. Eyelids are normal in appearance without swelling or lesions. Oral mucosa is pink and moist Neck: The neck is supple with normal range of motion. No JVD. Cardiac: Heart rate and rhythm are normal. No murmurs, gallops, or rubs are auscultated. Respiratory: No signs of respiratory distress. Breath sounds diminished bilaterally, positive rales. Abdominal: Abdomen is soft, non-tender without distention. Bowel sounds are present and normoactive in all four quadrants. Extremities: Upper and lower extremities are atraumatic in appearance without deformity or edema. Neurological: The patient is awake, alert and oriented to person, place, and ti me with normal speech. Speech is clear. There is no facial asymmetry. Psychiatric: Appropriate mood and affect. 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 Allergies: Coded Allergies: Penicillins (Verified Allergy, Severe, 01/15/20) Lisinopril (Verified Allergy, Unknown, Angioedema, 09/06/21) Home Meds Active Scripts Prednisone (Prednisone) 20 Mg Tab, 40 MG PO DAILY for 5 Days, #10 MG Prov:FOUZIA NOWAK MD 01/07/25 Furosemide (Lasix) 20 Mg Tb, 1 TAB PO DAILY, #10 TAB 0 Refills Prov:WILL ALVAREZ MD 07/08/24 Methylprednisolone (Medrol Dosepak) 4 Mg Gamaliel, 4 MG PO UD, #21 TAB UAD Prov:WILL ALVAREZ MD 07/08/24 Azithromycin (ZITHROMAX TABLET) 250 Mg Tb, 250 MG PO DAILY, #6 TAB take 2 tabs the first day, then one tab until finish Prov:WILL ALVAREZ MD 07/08/24 Hydrocodone-Acetaminophen (Hydrocodone Bitartrate/AC 5-325 mg) 1 Tab Tab, 1 TAB PO Q8HPRN PRN, #20 TAB Prov:WILL ALVAREZ MD 06/05/24 Budesonide-Formoterol Fumarate (Budesonide/Formoterol Fum 80-4.5 Mcg/Act) 1 Aer Aer, 1 AER IN BID for 30 Days, #1 AER 2 Refills Prov:ERICKA DAMON [facility] 04/08/24 Aspirin (Aspirin Low Dose) 81 Mg Tab, 81 MG PO DAILY for 30 Days, #30 TAB Prov:ERICKA DAMON [facility] 04/08/24 Ascorbic Acid (VITAMIN C TABLET) 500 Mg Tb, 1 TAB PO DAILY for 30 Days, #30 TAB 3 Refills Prov:ERICKA DAMON 04/08/24 Albuterol Sulfate (VENTOLIN MDI) 90 Mcg Ih, 180 MCG IN Q6HP PRN for SHORTNESS OF BREATH for 30 Days, #1 MCG Prov:ERICKA DAMON [facility] 04/08/24 Pantoprazole Sodium Sesquihydr (Protonix) 40 Mg Tab, 40 MG PO DAILY, #30 TAB Prov:JANINE BEST MD 12/27/23 Reported Medications Alpha Tocopheryl Acid Succinat (VITAMIN E) 100 Unit Tab, 100 UNIT PO, TAB 09/04/21 Carisoprodol (Soma) 350 Mg Tab, 350 MG PO Q6HP, TAB 09/04/21 Lorazepam (Ativan) 0.5 Mg Tab, 1 TAB PO DAILY PRN for ANXIETY, #30 TAB 09/04/21 Clonidine Hydrochloride (Clonidine Hcl) 0.1 Mg Tab, 0.1 MG PO HS for 30 Days, MG 09/04/21 Amlodipine Besylate (Amlodipine Besylate) 5 Mg Tab, 10 MG PO DAILY for 30 Days, MG 09/04/21 Atenolol (Atenolol) 25 Mg Tab, 25 MG PO DAILY for 30 Days, MG 09/04/21 Information Source: Patient, Emergency Med Personnel Past Medical History PAST MEDICAL HISTORY: Anxiety, Asthma, High Lipids, HTN Surgical History: , Hernia Repair 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 Was a procedure done?: No CP Differential Dx Differential Diagnosis: Angina, Anxiety / Panic Attack, Electrolyte Disorder Differential Diagnosis: Angina, Chest Wall Pain, Costochondritis, Esophageal reflux/spasm, Gastritis, Myocardial Infarction, Pneumonia X-Ray, Labs, Meds, VS Vital Signs Date Time Temp Pulse Resp B/P (MAP) Pulse Ox O2 Delivery O2 Flow Rate FiO2 06/01/25 21:09 80 06/01/25 20:16 89 06/01/25 20:00 98.2 100 20 166/88 98 98.2 06/01/25 19:59 89 Lab Test 06/01/25 22:03 06/01/25 21:07 Range/Units Troponin I High Sensitivity 5 6 </=34 ng/L White Blood Count 6.2 4.4-10.8 10^3/uL Red Blood Count 5.68 H 4.0-5.20 10^6/uL Hemoglobin 13.6 12.2-16.2 g/dL Hematocrit 43.1 36.0-46.0 % Mean Corpuscular Volume 75.9 L 80.0-100.0 fL Mean Corpuscular Hemoglobin 24.0 L 28.0-32.0 pg Mean Corpuscular Hemoglobin Concent 31.7 L 32.0-36.0 g/dL Red Cell Distribution Width 16.5 H 11.8-14.3 % Platelet Count 270 140-450 10^3/uL Mean Platelet Volume 8.0 6.9-10.8 fL Neutrophils (%) (Auto) 67.3 37.0-80.0 % Lymphocytes (%) (Auto) 18.9 10.0-50.0 % Monocytes (%) (Auto) 11.0 0.0-12.0 % Eosinophils (%) (Auto) 1.8 0.0-7.0 % Basophils (%) (Auto) 1.0 0.0-2.0 % Neutrophils # (Auto) 4.2 1.6-8.6 10 ^3/uL Lymphocytes # (Auto) 1.2 0.4-5.4 10 ^3/uL Monocytes # (Auto) 0.7 0-1.3 10 ^3/uL Eosinophils # (Auto) 0.1 0-0.8 10 ^3/uL Basophils # (Auto) 0.1 0-0.2 10 ^3/uL Nucleated Red Blood Cells 0.0 % Sodium Level 138 136-145 mmol/L Potassium Level 4.3 3.5-5.1 mmol/L Chloride Level 107 98-107 mmol/L Carbon Dioxide Level 24 20-31 mmol/L Anion Gap 7 5-15 Blood Urea Nitrogen 60 H 9-23 mg/dL Creatinine 0.83 0.550-1.02 mg/dL Glomerular Filtration Rate Calc 84 >90 mL/min BUN/Creatinine Ratio 72.3 H 10.0-20.0 Serum Glucose 106 74-106 mg/dL Calcium Level 9.6 8.7-10.4 mg/dL B-Type Natriuretic Peptide 41.18 0-100 pg/mL Current Medications Medications (Trade) Dose Ordered Sig/Roosevelt Route Start Time Stop Time Status Last Admin Morphine Sulfate 2 mg ONCE ONCE IV 06/01/25 21:00 06/01/25 21:01 DC 06/02/25 01:32 Furosemide (Lasix Injection) 20 mg ONCE ONCE IV 06/01/25 22:30 06/01/25 22:31 DC 06/02/25 01:32 Time of 1ST Reevaluation: 22:26 Reevaluation 1ST: Unchanged Patient Education/Counseling: Other (Need for admission) Family Education/Counseling: No Family Present SEPSIS Sepsis Screen Physician Orders Electrocardigram (06/01/25 19:57) Electrocardigram (06/01/25 19:57) Electrocardigram (06/01/25 20:57) Electrocardigram (06/01/25 22:57) Chest Xray 1 View (06/01/25 20:59) Vital Signs Q1HR (06/01/25 20:59) Saline Lock (06/01/25 20:59) 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 Deposit Operator (06/01/25 ) Vital Signs Date Time Temp Pulse Resp B/P (MAP) Pulse Ox O2 Delivery O2 Flow Rate FiO2 06/01/25 21:09 80 06/01/25 20:16 89 06/01/25 20:00 98.2 100 20 166/88 98 98.2 06/01/25 19:59 89 Laboratory Tests Test 06/01/25 21:07 White Blood Count 6.2 10^3/uL (4.4-10.8) Medications Medications Dose Ordered Sig/Roosevelt Route Start Time Stop Time Status Last Admin Dose Admin Furosemide 20 mg ONCE ONCE IV 06/01/25 22:30 06/01/25 22:31 DC 06/02/25 01:32 Morphine Sulfate 2 mg ONCE ONCE IV 06/01/25 21:00 06/01/25 21:01 DC 06/02/25 01:32 Departure 1 Departure Time of Disposition: 22:26 Impression: Primary Impression: Chest pain Additional Impression: Pulmonary edema Disposition: ADMITTED INPATIENT Condition: Stable Comments MDM: 54-year-old female with ongoing chest pain and multiple risk factors Chest x-ray suggestive of worsening pulmonary edema Patient admitted to hospitalist service for further treatment, evaluation and monitoring. Extensive evaluation was performed in attempt to identify or rule out: (See differential diagnosis section) The following tests were ordered, and results were reviewed by me and discussed with patient: (See diagnostic results section) The following test were independently interpreted by me: EKG I reviewed and agreed with the following test results read by other providers: Chest x-ray I reviewed the following notes from the pt's past medical encounters: N/A Additional information was gathered from interviewing the following independent historians: EMS personnel Decision regarding hospitalization or escalation of hospital level of care: Risk and benefits of admission for further treatment of patient's condition was considered. Due to patient's current clinical condition, high risk of decline and poor outcome if discharged and need for further inpatient management and monitoring, patient will be admitted to the hospital. Critical Care Note Critical Care Time?: No Stability Stability form required: No Heart Score Heart Score: Heart Score Response (Comments) Value History Moderate Suspicious 1 EKG Normal 0 Age 45-64 1 Risk Factors 1 or 2 risk factors 1 Troponin Normal limit 0 Total 3 I personally scribed for MATT THRASHER MD ([email or web address]) on 06/01/25 at 20:16. Electronically submitted by Abad Mendoza ([facility]). MATT THRASHER MD Jun 01, 2025 20:16
[2025-06-01 21:20] LABS: Hematocrit 43.1 % (36.0-46.0); Hemoglobin 13.6 g/dL (12.2-16.2); Mean Corpuscular Hemoglobin 24.0 pg (28.0-32.0); Mean Corpuscular Volume 75.9 fL (80.0-100.0); Nucleated Red Blood Cells % 0.0 %
[2025-06-01 21:32] LABS: Chloride 107 mmol/L (98-107); Potassium 4.3 mmol/L (3.5-5.1); Sodium 138 mmol/L (136-145)
[2025-06-01 21:33] LABS: Anion Gap 7 (5-15); Calcium 9.6 mg/dL (8.7-10.4); Carbon Dioxide 24 mmol/L (20-31)
[2025-06-01 21:43] LABS: Glucose 106 mg/dL (74-106)
[2025-06-01 22:02] LABS: BUN/Creatinine Ratio 72.3 (10.0-20.0); Blood Urea Nitrogen 60 mg/dL (9-23)
--- NOTE | 2025-06-01 22:02 | DVH ---
CHEST RADIOGRAPH Indication: cp Technique: Single frontal view of the chest was obtained COMPARISON: XY CHEST PORTABLE on DOS: 01/25/25, XY CHEST PORTABLE on DOS: 01/07/25, XY CHEST XRAY 1 VIEW on DOS: 08/07/24, XY CHEST PORTABLE on DOS: 07/07/24, XY CHEST TWO VIEWS ROUTINE on DOS: 05/30/24 FINDINGS: Lines and Tubes: None Lungs: Congestion Pleura: No effusion. No pneumothorax. Cardiomediastinal contours: Unremarkable Bones: Unremarkable IMPRESSION: Increased interstital prominence. This may represent pulmonary vascular congestion and/or viral pneum onia. Clinical correlation advised.
[2025-06-02] VITALS (10 sets, daily range): BP systolic 112–171; BP diastolic 63–105; PULSE 56–70; RESP 16–19; TEMP 97.6–98.2; O2SAT 94–100
[2025-06-02] MEDS ORDERED: MORPHINE SULFATE INJ 2 MG/ml SYRG IV PRN (00:15)
[2025-06-02] MEDS ORDERED: ACETAMINOPHEN 325 MG TAB PO PRN (00:15)
[2025-06-02] MEDS ORDERED: NITROGLYCERIN 0.4 MG SL TAB SL PRN (00:15)
[2025-06-02] MEDS: MORPHINE SULFATE INJ 2 MG/ml SYRG IV ONE (01:32)
[2025-06-02] MEDS: FUROSEMIDE 40 MG/4 ML VIAL IV ONE (01:32)
--- NOTE | 2025-06-02 06:58 | DVHHP2 ---
History of Present Illness History of Present Illness Kendra Levy is a 54-year-old female with a history of hypertension and asthma presenting to the emergency room with complaints of sudden onset mid- sternal chest pain radiating to her back and associated headaches.The patient reports sudden onset mid-sternal chest pain described as 8 out of 10 in severity that radiates into her back. She also endorses associated headaches. Her systolic blood pressure on scene was in the 230s. Review of Systems Cardiovascular: Chest Pain Gastrointestinal: No: Nausea, Vomiting, Abdominal Pain, Diarrhea, Constipation, Melena, Hematochezia, Other Genitourinary: No Dysuria, No Frequency, No Incontinence, No Hematuria, No Retention, No Other Allergies: Coded Allergies: Penicillins (Verified Allergy, Severe, 01/15/20) Lisinopril (Verified Allergy, Unknown, Angioedema, 09/06/21) Medications Current Medications Medications Dose Ordered Sig/[place] Route Start Time Stop Time Status Last Admin Dose Admin Acetaminophen 325 mg Q4HP PRN PO 06/02/25 00:15 Acetaminophen/ Hydrocodone Bitart 1 tab Q4HP PRN PO 06/02/25 00:15 Ondansetron HCl 4 mg Q4HP PRN IV 06/02/25 00:15 Morphine Sulfate 2 mg Q4HPRN PRN IV 06/02/25 00:15 Nitroglycerin 0.4 mg Q5MINP PRN SL 06/02/25 00:15 Morphine Sulfate 2 mg Q30M PRN IV 06/02/25 00:15 Amlodipine Besylate 10 mg DAILY PO 06/02/25 10:00 UNV Aspirin 81 mg DAILY PO 06/02/25 10:00 UNV Exam Vital Signs Vital Signs Date Time Temp Pulse Resp B/P (MAP) Pulse Ox O2 Delivery O2 Flow Rate FiO2 06/02/25 06:35 171/87 (115) 06/02/25 05:24 98.2 64 16 95 98.2 General Appearance: Alert, Oriented X3 HEENT: PERRLA Respiratory: Clear to auscultation Cardiovascular: Regular rate, Normal S1, Normal S2, No murmurs Abdominal: Normal bowel sounds, Soft, No tenderness, No hepatospenomegaly Extremities: No clubbing, No cyanosis Labs/Xrays Labs Test 06/02/25 00:18 06/01/25 21:07 Range/Units Troponin I High Sensitivity 5 </=34 ng/L White Blood Count 6.2 4.4-10.8 10^3/uL Red Blood Count 5.68 H 4.0-5.20 10^6/uL Hemoglobin 13.6 12.2-16.2 g/dL Hematocrit 43.1 36.0-46.0 % Mean Corpuscular Volume 75.9 L 80.0-100.0 fL Mean Corpuscular Hemoglobin 24.0 L 28.0-32.0 pg Mean Corpuscular Hemoglobin Concent 31.7 L 32.0-36.0 g/dL Red Cell Distribution Width 16.5 H 11.8-14.3 % Platelet Count 270 140-450 10^3/uL Mean Platelet Volume 8.0 6.9-10.8 fL Neutrophils (%) (Auto) 67.3 37.0-80.0 % Lymphocytes (%) (Auto) 18.9 10.0-50.0 % Monocytes (%) (Auto) 11.0 0.0-12.0 % Eosinophils (%) (Auto) 1.8 0.0-7.0 % Basophils (%) (Auto) 1.0 0.0-2.0 % Neutrophils # (Auto) 4.2 1.6-8.6 10 ^3/uL Lymphocytes # (Auto) 1.2 0.4-5.4 10 ^3/uL Monocytes # (Auto) 0.7 0-1.3 10 ^3/uL Eosinophils # (Auto) 0.1 0-0.8 10 ^3/uL Basophils # (Auto) 0.1 0-0.2 10 ^3/uL Nucleated Red Blood Cells 0.0 % Sodium Level 138 136-145 mmol/L Potassium Level 4.3 3.5-5.1 mmol/L Chloride Level 107 98-107 mmol/L Carbon Dioxide Level 24 20-31 mmol/L Anion Gap 7 5-15 Blood Urea Nitrogen 60 H 9-23 mg/dL Creatinine 0.83 0.550-1.02 mg/dL Glomerular Filtration Rate Calc 84 >90 mL/min BUN/Creatinine Ratio 72.3 H 10.0-20.0 Serum Glucose 106 74-106 mg/dL Calcium Level 9.6 8.7-10.4 mg/dL B-Type Natriuretic Peptide 41.18 0-100 pg/mL SEPSIS Sepsis Screen Date sepsis recognized/suspect: Jun 01, 2025 Time Sepsis recognized/suspect: 1999 Recent Procedure: No On Antibiotic Therapy: No Respiratory Rate >20: No Heart Rate >90: Yes Temp<36 C (96.8 F) or >38.3 C: No SBP <90 or MAP <65 mmHG: No New Acute Mental Status Change: No Is the patient on CPAP, BIPAP,: No Physician Orders Admit (06/02/25 00:04) Acetaminophen Tablet (Tylenol Tablet) (06/02/25 00:15) Hydrocodone-Acet 5/325mg Tab ([place]ent 5/32 (06/02/25 00:15) Ondansetron Hcl (Zofran) (06/02/25 00:15) Complete Blood Count (06/03/25 04:00) Comprehensive Metabolic Panel (06/03/25 04:00) Cardiac Diet-2gna,Lofat,Lochol (06/02/25 Breakfast) Morphine Sulfate Injection (06/02/25 00:15) Nitroglycerin Sublingual (Ntrostat Subli (06/02/25 00:15) Morphine Sulfate Injection (06/02/25 00:15) Stat Ekg For Chest Pain (06/02/25 00:04) Notify Md Of Changes From Base (06/02/25 00:04) Fuel Assembler For 24 Hours (06/02/25 00:04) Emergency Dysrhythmia Protocol (06/02/25 00:04) Rhythm Strips Once Every Shift (06/02/25 00:04) Oxygen By Nasal Cannula (06/02/25 00:04) *Consult Dr. Mora (06/02/25 06:55) Echo 2d Mode Cardiac Dop (06/02/25 06:56) Amlodipine Tablet (Norvasc Tablet) (06/02/25 10:00) Atenolol Tablet (Tenormin Tablet) (06/02/25 10:00) Pantoprazole Tablet (Protonix Tablet) (06/02/25 10:00) Aspirin Enteric Coated Tablet (Ecotrin E (06/02/25 10:00) Complete Blood Count (06/02/25 06:57) Basic Metabolic Panel (06/02/25 06:57) Furosemide Injection (Lasix Injection) (06/02/25 10:00) Vital Signs Date Time Temp Pulse Resp B/P (MAP) Pulse Ox O2 Delivery O2 Flow Rate FiO2 06/02/25 06:35 171/87 (115) 06/02/25 05:24 98.2 64 16 95 98.2 06/02/25 04:41 98.6 70 17 152/92 (112) 96 98.6 06/02/25 02:42 190/87 06/02/25 02:11 61 16 190/87 06/02/25 02:01 97.9 61 16 190/87 (121) 98 97.9 06/02/25 01:32 171/103 06/02/25 01:32 69 20 171/103 Laboratory Tests Test 06/01/25 21:07 White Blood Count 6.2 10^3/uL (4.4-10.8) Medications Medications Dose Ordered Sig/[place] Route Start Time Stop Time Status Last Admin Dose Admin Clonidine HCl 0.2 mg ONCE ONCE PO 06/02/25 02:15 06/02/25 02:16 DC 06/02/25 02:42 0.2 MG Furosemide 20 mg ONCE ONCE IV 06/01/25 22:30 06/01/25 22:31 DC 06/02/25 01:32 20 MG Morphine Sulfate 2 mg ONCE ONCE IV 06/01/25 21:00 06/01/25 21:01 DC 06/02/25 01:32 2 MG Assessment/Plan Assessment/Plan Chest pain Assessment: Patient presented with sudden onset 8/10 mid-sternal chest pain radiating to back in setting of severe hypertension with systolic blood pressure in 230s. Three serial troponins were negative, making acute coronary syndrome unlikely. Chest pain is likely secondary to hypertensive urgency given the tempo ral relationship and severity of blood pressure elevation. Plan: - Admitted for further evaluation - Cardiology consultation Hypertensive urgency Assessment: Patient presented with systolic blood pressure in 230s associated with chest pain and headaches. Blood pressure medications were adjusted and current systolic blood pressure improved to 170s, indicating response to treatment. Plan: - Continue amlodipine 10mg or 25mg daily - Blood pressure monitoring Vascular congestion Assessment: Chest x-ray demonstrates increased interstitial prominence which may represent vascular congestion, likely related to severe hypertension and fluid overload. Plan: - Lasix 40mg daily Asthma Assessment: Patient has underlying history of asthma requiring bronchodilator therapy. Plan: - Albuterol breathing treatments as needed Morbid obesity Assessment: Patient has morbid obesity with BMI of 44, which is a significant cardiovascular risk factor. Plan: - Continue monitoring Plan discussed with: Patient My Orders Orders - FORREST HELM Procedure Category Date Status Time *Consult Dr. Mora CONS 06/02/25 Transmitted 06:55 Echo 2d Mode Cardiac US 06/02/25 Logged DOP 06:56 Amlodipine Tablet PHA 06/02/25 Transmitted (Norvasc Tablet) 10:00 Atenolol Tablet PHA 06/02/25 Transmitted (Tenormin Tablet) 10:00 Pantoprazole Tablet PHA 06/02/25 Transmitted (Protonix Tablet) 10:00 Aspirin Enteric PHA 06/02/25 Transmitted Coated Tablet 10:00 Complete Blood Count LAB 06/02/25 Verified 06:57 Basic Metabolic Panel LAB 06/02/25 Verified 06:57 Furosemide Injection PHA 06/02/25 Verified (Lasix Injection) 10:00 Date of Service: Jun 02, 2025 Billing Provider: NICOLE LING MD Common Visit Codes: [id number] INP/OBS CARE (MOD) FORREST HELM Jun 02, 2025 06:58
[2025-06-02] MEDS ORDERED: CLON0.3D4 PO (09:18)
[2025-06-02 09:21] LABS: Hematocrit 44.3 % (36.0-46.0); Hemoglobin 14.1 g/dL (12.2-16.2); Mean Corpuscular Hemoglobin 24.2 pg (28.0-32.0); Mean Corpuscular Volume 76.3 fL (80.0-100.0); Nucleated Red Blood Cells % 0.1 %
[2025-06-02] MEDS ORDERED: LOVA10TA54 PO (09:21)
[2025-06-02] MEDS: FUROSEMIDE 40 MG/4 ML VIAL IV SCH (09:23)
[2025-06-02] MEDS: ASPirin-EC 81 mg tab PO SCH (09:24)
[2025-06-02] MEDS: PANTOPRAZOLE 40 MG TAB PO SCH (09:24)
[2025-06-02] MEDS: ATENOLOL 25 MG TAB PO SCH (09:25)
[2025-06-02 09:30] LABS: Chloride 103 mmol/L (98-107); Potassium 3.7 mmol/L (3.5-5.1); Sodium 141 mmol/L (136-145)
[2025-06-02 09:31] LABS: Anion Gap 8 (5-15); Calcium 9.7 mg/dL (8.7-10.4); Carbon Dioxide 30 mmol/L (20-31)
[2025-06-02 09:36] LABS: BUN/Creatinine Ratio 8.2 (10.0-20.0); Blood Urea Nitrogen 9 mg/dL (9-23); Glucose 95 mg/dL (74-106)
[2025-06-02] MEDS: MORPHINE SULFATE INJ 2 MG/ml SYRG IV PRN (12:29)
[2025-06-02 13:35] LABS: Urine Protein, UAD Negative (Negative)
[2025-06-02] MEDS: LOSARTAN POTASSIUM 50 MG TAB PO ONE (14:03)
[2025-06-02] MEDS: ONDANSETRON HCL 4 MG/2 ML VIAL IV PRN (14:50)
[2025-06-02 15:31] LABS: COVID19 ANTIGEN SOFIA FIA NEGATIVE (NEGATIVE)
[2025-06-02 19:42] LABS: Amphetamine Screen, Urine Neg (NEGATIVE); Barbiturate Scree,Urine Neg (NEGATIVE); Benzodiazephine Screen, Urine Neg (NEGATIVE); Cannabinoid Screen, Urine Neg (NEGATIVE); Cocaine Screen, Urine Pos (NEGATIVE); Opiate Scree,Urine Neg (NEGATIVE); Phencyclidine Screen, Urine Neg (NEGATIVE)
[2025-06-03] VITALS (8 sets, daily range): BP systolic 152–191; BP diastolic 84–105; PULSE 64–88; RESP 17–20; TEMP 97.6–98.3; O2SAT 94–97
[2025-06-03 07:57] LABS: Alanine Aminotransferase 21 U/L (7-40); Alkaline Phosphatase 78 U/L (46-116); Anion Gap 8 (5-15); BUN/Creatinine Ratio 11.5 (10.0-20.0); Blood Urea Nitrogen 14 mg/dL (9-23); Calcium 9.8 mg/dL (8.7-10.4); Carbon Dioxide 29 mmol/L (20-31); Chloride 103 mmol/L (98-107); Glucose 89 mg/dL (74-106); Potassium 4.5 mmol/L (3.5-5.1); Sodium 140 mmol/L (136-145); Total Protein 8.2 g/dL (5.7-8.2)
[2025-06-03 07:58] LABS: Albumin 4.3 g/dL (3.2-4.8); Bilirubin, Total 1.0 mg/dL (0.2-1.0)
[2025-06-03] MEDS: LOSARTAN POTASSIUM 50 MG TAB PO SCH (09:58)
[2025-06-03 11:53] LABS: Nucleated Red Blood Cells % 0.1 %
[2025-06-03 11:56] LABS: Hematocrit 47.4 % (36.0-46.0); Hemoglobin 15.3 g/dL (12.2-16.2); Mean Corpuscular Hemoglobin 24.7 pg (28.0-32.0); Mean Corpuscular Volume 76.6 fL (80.0-100.0)
--- NOTE | 2025-06-03 11:58 | DVHINCON2 ---
Date of service: Jun 03, 2025 Reason for Consultation Chest pain History of Present Illness HPI The patient is a 54-year-old female who presented to the emergency department on 06/01/2025 with sudden onset midsternal chest pressure radiating to her back, associated with headache and blurred vision. EMS reported systolic blood pressure of 230 mmHg; she was treated in the field with nitroglycerin, aspirin, and Zofran. Initial electrocardiogram showed normal sinus rhythm at 89 bpm with no acute ST changes. Laboratory results revealed hemoglobin 13.6, potassium 4.5, creatinine 1.22 (GFR 53), and high-sensitivity troponin trending 6 - 5 - 5; BNP 41.18. Chest X-ray showed increased interstitial prominence, suggestive of mild pulmonary vascular congestion; influenza and COVID testing were negative. At present, the patient reports improvement in symptoms but continues to endorse dyspnea on exertion. She denies ongoing chest pain or palpitations. Telemetry shows sinus rhythm. Past medical history includes hypertension, asthma, hyperlipidemia, and anxiety. Cardiology was consulted to manage cardiac aspects of care. Echocardiogram (06/03/2025) demonstrated mild concentric left ventricular hypertrophy, LVEF 5560%, pseudo-normal diastolic function, normal right ventricular size and systolic function, normal atria, trileaflet aortic valve without stenosis or insufficiency, trace mitral and tricuspid regurgitation, tr israel pulmonary insufficiency, normal RVSP at 22 mmHg, and no pericardial effusion. Home Meds Active Scripts Hydrocodone-Acetaminophen (Hydrocodone Bitartrate/AC 5-325 mg) 1 Tab Tab, 1 TAB PO Q8HPRN PRN, #20 TAB Prov:WILL ALVAREZ MD 06/05/24 Budesonide-Formoterol Fumarate (Budesonide/Formoterol Fum 80-4.5 Mcg/Act) 1 Aer Aer, 1 AER IN BID for 30 Days, #1 AER 2 Refills Prov:ERICKA DAMON RESIDENT 04/08/24 Aspirin (Aspirin Low Dose) 81 Mg Tab, 81 MG PO DAILY for 30 Days, #30 TAB Prov:ERICKA DAMON RESIDENT 04/08/24 Ascorbic Acid (VITAMIN C TABLET) 500 Mg Tb, 1 TAB PO DAILY for 30 Days, #30 TAB 3 Refills Prov:ERICKA DAMON 04/08/24 Albuterol Sulfate (VENTOLIN MDI) 90 Mcg Ih, 180 MCG IN Q6HP PRN for SHORTNESS OF BREATH for 30 Days, #1 MCG Prov:ERICKA DAMON RESIDENT 04/08/24 Pantoprazole Sodium Sesquihydr (Protonix) 40 Mg Tab, 40 MG PO DAILY, #30 TAB Prov:JANINE BEST MD 12/27/23 Reported Medications Lovastatin (Lovastatin) 10 Mg Tab, 10 MG PO HS, TAB 06/02/25 Clonidine Hydrochloride (Clonidine Hcl) 0.3 Mg/24 Hr Dis, 0.3 MG PO TID for 30 Days, MG 06/02/25 Alpha Tocopheryl Acid Succinat (VITAMIN E) 100 Unit Tab, 100 UNIT PO, TAB 09/04/21 Carisoprodol (Soma) 350 Mg Tab, 350 MG PO Q6HP, TAB 09/04/21 Lorazepam (Ativan) 0.5 Mg Tab, 1 TAB PO DAILY PRN for ANXIETY, #30 TAB 09/04/21 Amlodipine Besylate (Amlodipine Besylate) 5 Mg Tab, 10 MG PO DAILY for 30 Days, MG 09/04/21 Atenolol (Atenolol) 25 Mg Tab, 25 MG PO DAILY for 30 Days, MG 09/04/21 Past Medical History Patient Family History: Alcoholism G8 FATHER Colon cancer grandmother Diabetes mellitus G8 BROTHER G8 BROTHER G8 BROTHER FH: CHF (congestive heart failure) G8 FATHER FH: Crohn's disease G8 MOTHER G8 MOTHER FH: cancer FH: heart attack G8 MOTHER Hypertension G8 FATHER G8 MOTHER Patient's brother is G8 BROTHER G8 BROTHER G8 BROTHER G8 BROTHER Patient's father is G8 FATHER Review of Systems Comments A 14-point review of systems is negative unless otherwise noted in HPI H&P Exam Vital Signs Vital Signs Date Time Temp Pulse Resp B/P (MAP) Pulse Ox O2 Delivery O2 Flow Rate FiO2 06/03/25 10:02 169/99 06/03/25 09:59 64 06/03/25 08:54 97.6 18 95 97.6 06/03/25 07:40 Room Air* 0 21 Comments Heart: S1 and S2 present. The patient is in sinus rhythm. Lungs: Scattered rhonchi. Abdomen: Benign. Extremities: Distal pulses palpable, 2+. Bilateral lower extremities are edematous with chronic stasis changes Labs/Xrays Labs Test 06/03/25 11:07 06/03/25 06:36 06/02/25 14:11 06/02/25 12:35 Range/Units White Blood Count 8.9 # 4.4-10.8 10^3/uL Red Blood Count 6.18 H 4.0-5.20 10^6/uL Hemoglobin 15.3 12.2-16.2 g/dL Hematocrit 47.4 H 36.0-46.0 % Mean Corpuscular Volume 76.6 L 80.0-100.0 fL Mean Corpuscular Hemoglobin 24.7 L 28.0-32.0 pg Mean Corpuscular Hemoglobin Concent 32.2 32.0-36.0 g/dL Red Cell Distribution Width 16.3 H 11.8-14.3 % Platelet Count 291 140-450 10^3/uL Mean Platelet Volume 8.5 6.9-10.8 fL Neutrophils (%) (Auto) 63.1 37.0-80.0 % Lymphocytes (%) (Auto) 22.2 10.0-50.0 % Monocytes (%) (Auto) 11.8 0.0-12.0 % Eosinophils (%) (Auto) 2.3 0.0-7.0 % Basophils (%) (Auto) 0.6 0.0-2.0 % Neutrophils # (Auto) 5.6 1.6-8.6 10 ^3/uL Lymphocytes # (Auto) 2.0 0.4-5.4 10 ^3/uL Monocytes # (Auto) 1.0 0-1.3 10 ^3/uL Eosinophils # (Auto) 0.2 0-0.8 10 ^3/uL Basophils # (Auto) 0.1 0-0.2 10 ^3/uL Nucleated Red Blood Cells 0.1 % Sodium Level 140 136-145 mmol/L Potassium Level 4.5 3.5-5.1 mmol/L Chloride Level 103 98-107 mmol/L Carbon Dioxide Level 29 20-31 mmol/L Anion Gap 8 5-15 Blood Urea Nitrogen 14 9-23 mg/dL Creatinine 1.22 H 0.550-1.02 mg/dL Glomerular Filtration Rate Calc 53 >90 mL/min BUN/Creatinine Ratio 11.5 10.0-20.0 Serum Glucose 89 74-106 mg/dL Calcium Level 9.8 8.7-10.4 mg/dL Total Bilirubin 1.0 0.2-1.0 mg/dL Aspartate Amino Transferase (AST) 24 13-40 U/L Alanine Aminotransferase (ALT) 21 7-40 U/L Alkaline Phosphatase 78 46-116 U/L Total Protein 8.2 5.7-8.2 g/dL Albumin 4.3 3.2-4.8 g/dL Urine Opiates Screen Neg NEGATIVE Urine Fentanyl Screen Neg NEGATIVE Urine Barbiturates Screen Neg NEGATIVE Urine Phencyclidine Screen Neg NEGATIVE Urine Amphetamines Screen Neg NEGATIVE Urine Benzodiazepines Screen Neg NEGATIVE Urine Cocaine Screen Pos NEGATIVE Urine Cannabinoids Screen Neg NEGATIVE Influenza Type A Antigen Negative Negative Influenza Type B Antigen Negative Negative Test 06/02/25 12:20 06/02/25 00:18 06/02/25 00:00 06/01/25 21:07 Range/Units Urine Color Colorless Yellow Urine Clarity Clear Clear Urine pH 5.0 5.0-9.0 Urine Specific [place] 1.007 1.001-1.035 Urine Protein Negative Negative Urine Ketones Negative Negative Urine Blood Trace H Negative /uL Urine Nitrite Negative Negative Urine Bilirubin Negative Negative Urine Urobilinogen Normal Negative mg/dL Urine Leukocyte Esterase Negative Negative /uL Urine RBC 1 0 - 4 /hpf Urine Microscopic WBC 2 0-5 /HPF Urine Squamous Epithelial Cells Few <5 /hpf Urine Bacteria Few H None Seen /hpf Urine Glucose Normal Normal mg/dL Troponin I High Sensitivity 5 </=34 ng/L SARS-CoV-2 Antigen (Rapid) Negative NEGATIVE B-Type Natriuretic Peptide 41.18 0-100 pg/mL Assessment/Plan Admitting Diagnosis: Hypertensive urgency Morbid obesity Chest pain Asthma Plan ACS is not suspected based on stable troponins and non-ischemic ECG; inpatient ischemic workup not indicated. Recommend outpatient cardiology follow-up for ischemic evaluation as needed, optimize BP control, and reinforce cardiovascular risk factor management. Proceed with close rate and rhythm surveillance Proceed with close hemodynamic surveillance Proceed with optimized blood pressure control Transfuse to sustain HGB levels above 7.0 Sustain Magnesium level greater than 2.0 Sustain Potassium level greater than 4.0 Follow up renal function and electrolytes Losartan 50mg twice daily Management in Telemetry Will proceed to follow from a cardiac perspective Further recommendations per clinical progression All available labs, EKGs, and images were personally reviewed Patient's status, findings, and plan of care was discussed and reviewed with supervising physician Dr. Mora, who is in agreement with current plan of care. Plan of care discussed with and agreed upon by patient/family/Primary RN. Prognosis: Guarded Thank you for allowing me to participate in the care of this patient. Further recommendations will depend on clinical progression, hospitalist, and other consultants. Will continue to follow with Primary. If you have any questions, please do not hesitate to contact me. A total of 75 minutes was spent reviewing the patient record, examining the patient, making a diagnostic and therapeutic plan, discussing this plan with medical personnel, following up on diagnostic studies and following the patient for clinical stability excluding any and all procedures. At least 50% of this time was spent in direct, [id number] contact. Plan discussed with: Patient NATHAN CROSS NP Jun 03, 2025 11:58
--- NOTE | 2025-06-03 14:30 | DVHSR ---
APPROVED REPORT EXAM: Two-dimensional and M-mode echocardiogram with Doppler and color Doppler. Blood Pressure: 171/105 mmHg INDICATION R.O CHF RISK FACTORS Obesity: Height: 5'1", Weight: 190 DIMENSIONS LVDd4.4 (3.8-5.7cm)LA (2D)3.6 (1.9-4.0cm)Aortic Root3.4 (2.0-3.7cm) LVDs3.1 (2.5-4.0cm)LA (MM) (1.9-4.0cm)Aortic Cusp Exc1.8 (1.5-2.0cm) EF (%) 60.0 (55-70%)Rt. Atrium3.8 (1.9-4.0cm)Asc. Aorta cm IVSd1.5 (0.7-1.1cm)RV (D) (1.8-2.4cm) PWd1.4 (0.7-1.1cm) Mitral Valve MitralMitral Stenosis E wave0.79m/sMV Mean GR.mmHg A wave0.81m/sMV Peak GR.mmHg E/A ratio1.02D MVAcm2 DECEL [id number] 1/2 [place] Aortic Valve Aortic ValveAortic Stenosis V11.10m/Ann Mean GR.4mmHg V21.49m/Ann Peak GR.9mmHg LVOT Diameter2.0 (1.8-2.4cm)Doppler AVA2.32cm2 Pulmonic Valve V20.75m/s Tricuspid Valve TR Velocity1.92m/s [id number] Other Information Technically limited study due to body habitus. Conclusion Left ventricle: Moderate concentric left ventricular hypertrophy was seen. LVEF was 55-60%. There was no gross wall motion abnormality. Pseudonormal left ventricular diastolic function was observed. Right ventricle was normal-sized with normal systolic function. Both atria were normal-sized. Aortic valve was trileaflet. There was no aortic insufficiency/stenosis. There was trace mitral/tric uspid regurgitation. There was trace pulmonary valve insufficiency. Right ventricular systolic pressure was assessed normal at 22 mm Hg. There was no pericardial effusi on.
--- NOTE | 2025-06-03 19:22 | DVHPN2 ---
Progress Note Date Seen: Jun 03, 2025 Medical Necessity Reason Pt with a Central, PICC or Fol: No Subjective Review of Systems: CVS:Normal, RESPIRATORY:Normal, GI:Normal, NEURO:Normal Objective vital signs Vital Sign Date Time Temp Pulse Resp B/P (MAP) Pulse Ox O2 Delivery O2 Flow Rate FiO2 06/03/25 18:53 76 18 162/87 06/03/25 17:00 97.8 96 97.8 06/03/25 07:40 Room Air* 0 21 Total Intake and Output 06/02/25 06/02/25 06/03/25 14:59 22:59 06:59 Intake Total 900 ml 700 ml 700 ml Balance 900 ml 700 ml 700 ml medications Current Medications Medications Dose Ordered Sig/[place] Route Start Time Stop Time Status Last Admin Dose Admin Acetaminophen 325 mg Q4HP PRN PO 06/02/25 00:15 Acetaminophen/ Hydrocodone Bitart 1 tab Q4HP PRN PO 06/02/25 00:15 Ondansetron HCl 4 mg Q4HP PRN IV 06/02/25 00:15 06/03/25 02:34 4 MG Morphine Sulfate 2 mg Q4HPRN PRN IV 06/02/25 00:15 06/03/25 18:16 2 MG Nitroglycerin 0.4 mg Q5MINP PRN SL 06/02/25 00:15 Morphine Sulfate 2 mg Q30M PRN IV 06/02/25 00:15 Amlodipine Besylate 10 mg DAILY PO 06/02/25 10:00 06/03/25 09:58 10 MG Aspirin 81 mg DAILY PO 06/02/25 10:00 06/03/25 09:59 81 MG Atenolol 25 mg DAILY PO 06/02/25 10:00 06/03/25 09:59 25 MG Pantoprazole Sodium 40 mg DAILY PO 06/02/25 10:00 06/03/25 09:59 40 MG Furosemide 40 mg DAILY IV 06/02/25 10:00 06/03/25 10:02 40 MG Hydralazine HCl 25 mg Q8HR PO 06/02/25 14:00 06/03/25 14:00 25 MG Losartan Potassium 50 mg DAILY PO 06/03/25 10:00 06/03/25 09:58 50 MG Examination: GENERAL:Normal, LUNGS:Normal, CVS:Normal, ABDOMEN:Normal, SKIN:Normal, NEURO:Normal laboratory and microbiology Laboratory Tests 06/03/25 11:07 06/03/25 06:36 Test 06/03/25 06:36 Range/Units Serum Glucose 89 74-106 mg/dL Labs and/or images reviewed: Labs reviewed by me Problem List/Assessment/Plan Problem List/Assessment/Plan The patient's chest pain is still being evaluated by cardiology. An echocardiogram was performed, showing an ejection fraction of 55 to 60% and pseudonormal left ventricular diastolic function. Troponin tests were negative. The patient tested positive for cocaine use. For their hypertensive urgency, blood pressure has been improving and is now in the 150s. The patient's asthma is being managed with breathing treatments. Regarding the patient's morbid obesity, discharge is being considered once cleared by cardiology, possibly tomorrow. Chest Pain Assessment: Patient is currently undergoing cardiology workup for chest pain. Echocardiogram demonstrates preserved ejection fraction of 55-60% with left ventricular diastolic dysfunction showing pseudonormal pattern. Troponins were negative ruling out acute myocardial infarction. Patient tested positive for cocaine use which may be contributing to chest pain symptoms. Plan: - Continue cardiology workup - Discharge pending cardiology clearance, possibly tomorrow Hypertensive Urgency Assessment: Patient presented with hypertensive urgency. Blood pressure is improving and currently in the 150s systolic. Plan: - Continue with BP medications Asthma Assessment: Patient has asthma requiring ongoing respiratory support. Plan: - Continue breathing treatments Morbid Obesity Assessment: Patient has morbid obesity. Plan: - Discharge once cleared by cardiology, possibly tomorrow Plan discussed with: Patient Date of Service: Jun 03, 2025 Billing Provider: NICOLE LING MD Common Visit Codes: [id number] INP/OBS CARE (MOD) FORREST HELM PERSONNEL RECRUITER Jun 03, 2025 19:22
[2025-06-04] VITALS (8 sets, daily range): BP systolic 141–168; BP diastolic 84–108; PULSE 67–81; RESP 17–19; TEMP 98.1–98.7; O2SAT 95–100
[2025-06-04] MEDS: HYDROcodone-ACET 5/325MG TAB PO PRN (07:52)
--- NOTE | 2025-06-04 08:54 | DVHPN2 ---
Progress Note - Dictate Date Seen: Jun 04, 2025 Medical Necessity Reason Pt with a Central, PICC or Fol: No vital signs Vital Sign Date Time Temp Pulse Resp B/P (MAP) Pulse Ox O2 Delivery O2 Flow Rate FiO2 06/04/25 05:54 148/92 06/04/25 05:00 98.7 74 17 97 98.7 06/03/25 20:00 Room Air* 0 21 Total Intake and Output 06/03/25 06/03/25 06/04/25 15:00 23:00 07:00 Intake Total 740 ml 900 ml Output Total 850 ml Balance -110 ml 900 ml medications Current Medications Medications Dose Ordered Sig/Roosevelt Route Start Time Stop Time Status Last Admin Dose Admin Acetaminophen 325 mg Q4HP PRN PO 06/02/25 00:15 Acetaminophen/ Hydrocodone Bitart 1 tab Q4HP PRN PO 06/02/25 00:15 06/04/25 07:52 1 TAB Ondansetron HCl 4 mg Q4HP PRN IV 06/02/25 00:15 06/03/25 02:34 4 MG Morphine Sulfate 2 mg Q4HPRN PRN IV 06/02/25 00:15 06/04/25 03:01 2 MG Nitroglycerin 0.4 mg Q5MINP PRN SL 06/02/25 00:15 Morphine Sulfate 2 mg Q30M PRN IV 06/02/25 00:15 Amlodipine Besylate 10 mg DAILY PO 06/02/25 10:00 06/03/25 09:58 10 MG Aspirin 81 mg DAILY PO 06/02/25 10:00 06/03/25 09:59 81 MG Atenolol 25 mg DAILY PO 06/02/25 10:00 06/03/25 09:59 25 MG Pantoprazole Sodium 40 mg DAILY PO 06/02/25 10:00 06/03/25 09:59 40 MG Furosemide 40 mg DAILY IV 06/02/25 10:00 06/03/25 10:02 40 MG Hydralazine HCl 25 mg Q8HR PO 06/02/25 14:00 06/04/25 05:54 25 MG Losartan Potassium 50 mg BID PO 06/04/25 10:00 laboratory and microbiology Laboratory Tests 06/03/25 11:07 06/03/25 06:36 Test 06/03/25 06:36 Range/Units Serum Glucose 89 74-106 mg/dL Assessment/Plan The patient is a 54-year-old female who presented to the emergency department on 06/01/2025 with sudden onset midsternal chest pressure radiating to her back, associated with headache and blurred vision. EMS reported systolic blood pressure of 230 mmHg; she was treated in the field with nitroglycerin, aspirin, and Zofran. Initial electrocardiogram showed normal sinus rhythm at 89 bpm with no acute ST changes. Laboratory results revealed hemoglobin 13.6, potassium 4.5, creatinine 1.22 (GFR 53), and high-sensitivity troponin trending 6 - 5 - 5; BNP 41.18. Chest X-ray showed increased interstitial prominence, suggestive of mild pulmonary vascular congestion; influenza and COVID testing were negative. UDS was positive for Cocaine Past medical history includes hypertension, asthma, hyperlipidemia, and anxiety. Cardiology was consulted to manage cardiac aspects of care. Echocardiogram (06/03/2025) demonstrated mild concentric left ventricular hypertrophy, LVEF [id number]%, pseudo-normal diastolic function, normal right ventricular size and systolic function, normal atria, trileaflet aortic valve without stenosis or insufficiency, trace mitral and tricuspid regurgitation, trace pulmonary insufficiency, normal RVSP at 22 mmHg, and no pericardial effusion. Admitting Diagnosis: Hypertensive urgency Morbid obesity Chest pain Asthma Cocaine abuse Plan ACS is not suspected based on stable troponins and non-ischemic ECG; inpatient ischemic workup not indicated. Recommend outpatient cardiology follow-up for ischemic evaluation as needed, optimize BP control, and reinforce cardiovascular risk factor management. Counseled to avoid substance abuse (cocaine) Control hypertension If BP is better controlled, cardiac barboza, can be followed as outpatient Proceed with close rate and rhythm surveillance Proceed with close hemodynamic surveillance Proceed with optimized blood pressure control Transfuse to sustain HGB levels above 7.0 Sustain Magnesium level greater than 2.0 Sustain Potassium level greater than 4.0 Follow up renal function and electrolytes Management in Telemetry Will proceed to follow from a cardiac perspective Further recommendations per clinical progression All available labs, EKGs, and images were personally reviewed Plan of care discussed with and agreed upon by patient/family/Primary RN. Prognosis: Guarded Thank you for allowing me to participate in the care of this patient. Further recommendations will depend on clinical progression, hospitalist, and other consultants. Will continue to follow with Primary. If you have any questions, please do not hesitate to contact me. A total of 55 minutes was spent reviewing the patient record, examining the patient, making a diagnostic and therapeutic plan, discussing this plan with medical personnel, following up on diagnostic studies and following the patient for clinical stability excluding any and all procedures. At least 50% of this time was spent in direct, [id number] contact. Plan discussed with: Patient, Other (nurse) MIGUEL SPENCER MD Jun 04, 2025 08:54
[2025-06-04] MEDS: LOSARTAN POTASSIUM 50 MG TAB PO SCH (09:54)
[2025-06-04] MEDS ORDERED: LOSA-534 PO (11:18)
[2025-06-04] MEDS ORDERED: HYDR25TA87 PO (11:18)
[2025-06-04] MEDS ORDERED: CLON0.1T PO (11:18)
--- NOTE | 2025-06-04 11:20 | DVHDS2 ---
Discharge Summary Date of Admission Jun 02, 2025 at 00:04 Date of Discharge: Jun 04, 2025 Labs/Diagnostic Data: Laboratory Results Test 06/03/25 11:07 06/03/25 06:36 06/02/25 14:11 06/02/25 12:35 White Blood Count 8.9 10^3/uL (4.4-10.8) Red Blood Count 6.18 10^6/uL (4.0-5.20) Hemoglobin 15.3 g/dL (12.2-16.2) Hematocrit 47.4 % (36.0-46.0) Mean Corpuscular Volume 76.6 fL (80.0-100.0) Mean Corpuscular Hemoglobin 24.7 pg (28.0-32.0) Mean Corpuscular Hemoglobin Concent 32.2 g/dL (32.0-36.0) Red Cell Distribution Width 16.3 % (11.8-14.3) Platelet Count 291 10^3/uL (140-450) Mean Platelet Volume 8.5 fL (6.9-10.8) Neutrophils (%) (Auto) 63.1 % (37.0-80.0) Lymphocytes (%) (Auto) 22.2 % (10.0-50.0) Monocytes (%) (Auto) 11.8 % (0.0-12.0) Eosinophils (%) (Auto) 2.3 % (0.0-7.0) Basophils (%) (Auto) 0.6 % (0.0-2.0) Neutrophils # (Auto) 5.6 10 ^3/uL (1.6-8.6) Lymphocytes # (Auto) 2.0 10 ^3/uL (0.4-5.4) Monocytes # (Auto) 1.0 10 ^3/uL (0-1.3) Eosinophils # (Auto) 0.2 10 ^3/uL (0-0.8) Basophils # (Auto) 0.1 10 ^3/uL (0-0.2) Nucleated Red Blood Cells 0.1 % Sodium Level 140 mmol/L (136-145) Potassium Level 4.5 mmol/L (3.5-5.1) Chloride Level 103 mmol/L (98-107) Carbon Dioxide Level 29 mmol/L (20-31) Anion Gap 8 (5-15) Blood Urea Nitrogen 14 mg/dL (9-23) Creatinine 1.22 mg/dL (0.550-1.02) Glomerular Filtration Rate Calc 53 mL/min (>90) BUN/Creatinine Ratio 11.5 (10.0-20.0) Serum Glucose 89 mg/dL (74-106) Calcium Level 9.8 mg/dL (8.7-10.4) Total Bilirubin 1.0 mg/dL (0.2-1.0) Aspartate Amino Transferase (AST) 24 U/L (13-40) Alanine Aminotransferase (ALT) 21 U/L (7-40) Alkaline Phosphatase 78 U/L (46-116) Total Protein 8.2 g/dL (5.7-8.2) Albumin 4.3 g/dL (3.2-4.8) Urine Opiates Screen Neg (NEGATIVE) Urine Fentanyl Screen Neg (NEGATIVE) Urine Barbiturates Screen Neg (NEGATIVE) Urine Phencyclidine Screen Neg (NEGATIVE) Urine Amphetamines Screen Neg (NEGATIVE) Urine Benzodiazepines Screen Neg (NEGATIVE) Urine Cocaine Screen Pos (NEGATIVE) Urine Cannabinoids Screen Neg (NEGATIVE) Influenza Type A Antigen Negative (Negative) Influenza Type B Antigen Negative (Negative) Test 06/02/25 12:20 06/02/25 00:18 06/02/25 00:00 06/01/25 21:07 Urine Color Colorless (Yellow) Urine Clarity Clear (Clear) Urine pH 5.0 (5.0-9.0) Urine Specific [place] 1.007 (1.001-1.035) Urine Protein Negative (Negative) Urine Ketones Negative (Negative) Urine Blood Trace /uL (Negative) Urine Nitrite Negative (Negative) Urine Bilirubin Negative (Negative) Urine Urobilinogen Normal mg/dL (Negative) Urine Leukocyte Esterase Negative /uL (Negative) Urine RBC 1 /hpf (0 - 4) Urine Microscopic WBC 2 /HPF (0-5) Urine Squamous Epithelial Cells Few /hpf (<5) Urine Bacteria Few /hpf (None Seen) Urine Glucose Normal mg/dL (Normal) Troponin I High Sensitivity 5 ng/L (</=34) SARS-CoV-2 Antigen (Rapid) Negative (NEGATIVE) B-Type Natriuretic Peptide 41.18 pg/mL (0-100) Other Laboratory Tests 06/03/25 11:07 06/03/25 06:36 Brief Hx & Hospital Course: Kendra Levy is a 54-year-old female with a history of hypertension and asthma presenting to the emergency room with complaints of sudden onset mid- sternal chest pain radiating to her back and associated headaches.The patient reports sudden onset mid-sternal chest pain described as 8 out of 10 in severity that radiates into her back. She also endorses associated headaches. Her systolic blood pressure on scene was in the 230s. Patient was admitted on June 02, 2025, for chest pain. She was evaluated by cardiology, and acute coronary syndrome was ruled out. Patients urine drug screen was positive for cocaine, and she was also found to have uncontrolled hypertension. Her blood pressure medications were adjusted during admission. She was instructed to abstain from substance abuse and to follow up with her PCP in 1 week. The patient received proper medical treatment and medications. Vital signs, Imaging and Laboratory Work was monitored daily. All consults recommendations were followed as provided. There were no complaints or new complaints upon discharge, all questions and concerns were answered. Patient was advised to return to the ER or call 911 if any headaches, dizziness, shortness of breath, chest pain, bleeding, fevers, or worsening of medical condition. Patient/Family was counseled about treatment plan, medications, possible side effects, patient verbalized understanding. All questions were answered to the best of my ability. The patient symptoms improved and they are okay to be DC. Condition at Discharge: Stable Final Diagnosis/Problems List CP RELATED TO COCAINE USE, UNCONTROLLED BLOOD PRESSURE Discharge Disposition: Home Discharge Instruct/Medications Diet: Cardiac 2g Na,low cholest Activity: No Restrictions, As Tolerated Follow Up/Referral: PCP 1 WEEK OUTPT CARDIOLOGY FOR ISCHEMIC WORK UP Medications: PRESCRIBED Scheduled Amlodipine Besylate (Amlodipine Besylate), 10 MG PO DAILY, (Reported) Ascorbic Acid (Vitamin C Tablet), 1 TAB PO DAILY Aspirin (Aspirin Low Dose), 81 MG PO DAILY Atenolol (Atenolol), 25 MG PO DAILY, (Reported) Budesonide-Formoterol Fumarate (Budesonide/Formoterol Fum 80-4.5 Mcg/Act), 1 AER IN BID Hydralazine HCl (Hydralazine HCl), 25 MG PO Q8HR Losartan Potassium (Losartan Potassium), 50 MG PO BID Lovastatin (Lovastatin), 10 MG PO HS, (Reported) Pantoprazole Sodium Sesquihydr (Protonix), 40 MG PO DAILY Scheduled PRN Albuterol Sulfate (Ventolin Mdi), 180 MCG IN Q6HP PRN for SHORTNESS OF BREATH Clonidine Hydrochloride (Clonidine Hcl), 0.1 MG PO Q8HP PRN Miscellaneous Medications Alpha Tocopheryl Acid Succinat (Vitamin E), 100 UNIT PO, (Reported) Discontinued Medications Carisoprodol (Soma), 350 MG PO Q6HP, (Reported) Clonidine Hydrochloride (Clonidine Hcl), 0.3 MG PO TID, (Reported) Hydrocodone-Acetaminophen (Hydrocodone Bitartrate/AC 5-325 mg), 1 TAB PO Q8HPRN PRN Lorazepam (Ativan), 1 TAB PO DAILY PRN for ANXIETY, (Reported) Discharge Statement: "Patient was advised to return to the ER or call 911 if any headaches, dizziness, shortness of breath, chest pain, abdominal pain, bleeding, fevers, or worsening of medical condition. Patient was counseled about treatment plan, medications, possible side effects, patientverbalized understanding. All questions were answered to the best of my ability. This discharge took greater then 30 minutes in planning, reviewing documentation, counseling the patient, and discussing with other team members." ASSESSMENT ASSESSMENT Assessment CP RELATED TO COCAINE USE, UNCONTROLLED BLOOD PRESSURE FAWN GUERIN NP Jun 04, 2025 11:20
[2025-06-04] MEDS ORDERED: MORPHINE SULFATE 4 MG/ML SYR/VIAL IV PRN (15:15)
[2025-06-04] MEDS: MORPHINE SULFATE 4 MG/ML SYR/VIAL IV PRN (15:22)
--- NOTE | 2025-06-05 06:14 | ECG ---
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
--- NOTE | 2025-06-05 06:14 | ECG ---
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
== END 2025-06-04 18:47 | disposition home or self-care (01) | DRG 199 ==
LOC: EDUNIT# 19:55 → ER 19:55 → EDBD 19:55 → OVERFLOW 06-02 00:04 → TELE-EAST 06-02 06:41
PROVIDERS: ADMIT Internal Medicine; ATTEND Internal Medicine
DX: I16.0 Hypertensive urgency (principal); Z68.43 Body mass index [BMI] 50.0-59.9, adult; E66.01 Morbid (severe) obesity due to excess calories; F14.90 Cocaine use, unspecified, uncomplicated; J45.909 Unspecified asthma, uncomplicated; E78.5 Hyperlipidemia, unspecified; Z88.0 Allergy status to penicillin; F41.9 Anxiety disorder, unspecified; Z79.899 Other long term (current) drug therapy; Z88.8 Allergy status to other drugs, medicaments and biological substances; R09.89 Other specified symptoms and signs involving the circulatory and respiratory systems; Y92.89 Other specified places as the place of occurrence of the external cause; Z20.822 Contact with and (suspected) exposure to COVID-19; H53.8 Other visual disturbances
CPT/HCPCS: 36415; 71045; 80048; 80053; 80307; 81001; 83880; 84484; 85025; 87426; 87804; 93005; 93306; G0378; J2405

== ENCOUNTER 2025-06-15 22:36 | Inpatient (IN) | payer MEDICAID ==
[~2025-06-15] VITALS: Ht 170.2 cm; Wt 103.2 kg
[~2025-06-15 22:36] MED LIST changes: -AZIT-185 PO; -CARI-277 PO; -FURO1TAB33 PO; -HYDR-4902 PO; +HYDR25TA87 PO; -LORA-655 PO; +LOSA-534 PO; +LOVA10TA54 PO; -METH4PAK PO; -PRED20TA2 PO
[2025-06-15 23:29] LABS: Nucleated Red Blood Cells % 0.1 %
[2025-06-15 23:31] LABS: Hematocrit 37.4 % (36.0-46.0); Hemoglobin 11.8 g/dL (12.2-16.2); Mean Corpuscular Hemoglobin 24.2 pg (28.0-32.0); Mean Corpuscular Volume 76.7 fL (80.0-100.0)
[2025-06-15 23:37] LABS: Chloride 107 mmol/L (98-107); Potassium 3.6 mmol/L (3.5-5.1); Sodium 140 mmol/L (136-145)
[2025-06-15 23:38] LABS: Anion Gap 14 (5-15); Calcium 8.8 mg/dL (8.7-10.4)
--- NOTE | 2025-06-15 23:39 | ED.PDOC ---
GI ASSESSMENT HPI Comments 54-year-old female who came to ER via EMS for GI bleed. Patient has been having episodes of rectal bleeding since this morning. States she has been feeling generally weak, has been having lower abdominal pain. Denies any nausea or vomiting. Chief Complaint: GI Bleed Time Seen by MD: 23:38 Primary Care Provider: SENIA Reviewed Notes: Nurses Notes Allergies: Coded Allergies: Penicillins (Verified Allergy, Severe, 01/15/20) Lisinopril (Verified Allergy, Unknown, Angioedema, 09/06/21) Home Meds Active Scripts Clonidine Hydrochloride (Clonidine Hcl) 0.1 Mg Tab, 0.1 MG PO Q8HP PRN for 30 Days, #90 TAB Q 8HRS NEEDED PRN SBP>160MMHG Prov:FAWN GUERIN NP 06/04/25 Hydralazine HCl (Hydralazine HCl) 25 Mg Tab, 25 MG PO Q8HR for 30 Days, #90 TAB Prov:FAWN GUERIN NP 06/04/25 Losartan Potassium (Losartan Potassium) 50 Mg Tab, 50 MG PO BID for 30 Days, #60 TAB Prov:FAWN GUERIN NP 06/04/25 Budesonide-Formoterol Fumarate (Budesonide/Formoterol Fum 80-4.5 Mcg/Act) 1 Aer Aer, 1 AER IN BID for 30 Days, #1 AER 2 Refills Prov:ERICKA DAMON 04/08/24 Aspirin (Aspirin Low Dose) 81 Mg Tab, 81 MG PO DAILY for 30 Days, #30 TAB Prov:ERICKA DAMON 04/08/24 Ascorbic Acid (VITAMIN C TABLET) 500 Mg Tb, 1 TAB PO DAILY for 30 Days, #30 TAB 3 Refills Prov:ERICKA DAMON 04/08/24 Albuterol Sulfate (VENTOLIN MDI) 90 Mcg Ih, 180 MCG IN Q6HP PRN for SHORTNESS OF BREATH for 30 Days, #1 MCG Prov:ERICKA DAMON 04/08/24 Pantoprazole Sodium Sesquihydr (Protonix) 40 Mg Tab, 40 MG PO DAILY, #30 TAB Prov:JANINE BEST MD 12/27/23 Reported Medications Lovastatin (Lovastatin) 10 Mg Tab, 10 MG PO HS, TAB 06/02/25 Alpha Tocopheryl Acid Succinat (VITAMIN E) 100 Unit Tab, 100 UNIT PO, TAB 09/04/21 Amlodipine Besylate (Amlodipine Besylate) 5 Mg Tab, 10 MG PO DAILY for 30 Days, MG 09/04/21 Atenolol (Atenolol) 25 Mg Tab, 25 MG PO DAILY for 30 Days, MG 09/04/21 Information Source: Patient Mode of Arrival: EMS Timing: Hours Duration: Intermittent Quality: Aching Vomitus: None Stool: Blood Streaked Severity: Moderate Pain Location: Epigastric Associated sign and symptoms: Hematochezia, Abdominal Pain, Blood in Stool Past Medical History PAST MEDICAL HISTORY: Anxiety, Asthma, High Lipids, HTN Surgical History: , 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: Denies all 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 Hx, Other Family History Family History: No family hx of Cancer, Family hx of DM, Family hx of heart mana, Family hx of HTN Family History (Other): crohn's disease Social History Smoker: Non-Smoker Alcohol: Occasionally Drugs: Denies Drug Use Lives In: Home Constitutional: denies: chills, diaphoresis, fatigue, fever, malaise, sweats, weakness, others EENTM: denies: blurred vision, double vision, ear bleeding, ear discharge, ear drainage, ear pain, ear ringing, eye pain, eye redness, hearing loss, mouth pain, mouth swelling, nasal discharge, nose bleeding, nose congestion, nose pain, photophobia, tearing, throat pain, throat swelling, voice changes, others Respiratory: denies: cough, hemoptysis, orthopnea, SOB at rest, shortness of breath, SOB with excertion, stridor, wheezing, others Cardiovascular: denies: chest pain, dizzy spells, diaphoresis, Dyspnea on exertion, edema, irregular heart beat, left arm pain, lightheadedness, palpitations, PND, syncope, others Gastrointestinal: reports: rectal bleeding; denies: abdomen distended, abdominal pain, blood streaked bowels, constipated, diarrhea, dysphagia, difficulty swallowing, hematemesis, melena, nausea, poor appetite, poor fluid intake, rectal pain, vomiting, others Genitourinary: denies: abnormal vagina bleeding, burning, dyspareunia, dysuria, flank pain, frequency, hematuria, incontinence, pain, , vagina discharge, urgency, others Neurological: denies: dizziness, fainting, headache, left sided numbness, left sided weakness, numbness, paresthesia, pre-existing deficit, right sided numbness, right sided weakness, seizure, speech problems, tingling, tremors, weakness, others Musculoskeletal: denies: back pain, gout, joint pain, joint swelling, muscle pain, muscle stiffness, neck pain, others Integumetry: denies: bruises, change in color, change in hair/nails, dryness, laceration, lesions, lumps, rash, wounds, others Allergic/Immunocompromised: denies: Difficulty Healing, Frequent Infections, Hives, Itching, others Hematologic/Lymphatic: denies: anemia, blood clots, easy bleeding, easy bruising, swollen glands, others Endocrine: denies: excessive hunger, excessive sweating, excessive thirst, excessive urination, flushing, intolerance to cold, intolerance to heat, unexplained weight gain, unexplained weight loss, others Psychiatric: denies: anxiety, bipolar disorder, depression, hopeless, panic disorder, schizophrenia, sleepless, suicidal, others Physical Exam General Appearance: No Apparent Distress, Normal HEENT: Normal ENT Inspection, Pharynx Normal, TMs Normal Neck: Full Range of Motion, Non-Tender, Normal, Normal Inspection Respiratory: Chest Non-Tender, Lungs Clear, No Accessory Muscle Use, No Respiratory Distress, Normal Breath Sounds Cardiovascular: No Edema, No JVD, No Murmur, No Gallop, Normal Peripheral Pulses, Regular Rate/Rhythm Breast Exam: Deferred Gastrointestinal: No Organomegaly, Non Tender, No Pulsatile Mass, Normal Bowel Sounds, Soft Genitalia: Deferred Pelvic: Deferred Rectal: Deferred Extremities: No calf tenderness, Normal capillary refill, Normal inspection, Normal range of motion, Non-tender, No pedal edema Musculoskeletal : Apperance: Normal Neurologic: Alert, 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 Was a procedure done?: No GI differential Dx Differential Diagnosis: Diverticular disease, Gastritis/PUD, Gastroenteritis, GI hemorrhage, Inflammatory BD, Ischemic Bowel, Pancreatitis, UTI, Urolithiasis, Electrolyte Imbalance, Food Poisoning, Anemia X-Ray, Labs, Meds, VS Vital Signs Date Time Temp Pulse Resp B/P (MAP) Pulse Ox O2 Delivery O2 Flow Rate FiO2 06/16/25 01:18 88 16 148/87 06/16/25 01:08 98.0 89 16 148/87 (107) 95 98.0 06/15/25 23:44 98.2 82 20 145/99 98 98.2 Lab Test 06/15/25 23:05 Range/Units White Blood Count 9.4 4.4-10.8 10^3/uL Red Blood Count 4.87 4.0-5.20 10^6/uL Hemoglobin 11.8 L 12.2-16.2 g/dL Hematocrit 37.4 36.0-46.0 % Mean Corpuscular Volume 76.7 L 80.0-100.0 fL Mean Corpuscular Hemoglobin 24.2 L 28.0-32.0 pg Mean Corpuscular Hemoglobin Concent 31.6 L 32.0-36.0 g/dL Red Cell Distribution Width 15.3 H 11.8-14.3 % Platelet Count 292 140-450 10^3/uL Mean Platelet Volume 8.3 6.9-10.8 fL Neutrophils (%) (Auto) 53.5 37.0-80.0 % Lymphocytes (%) (Auto) 34.9 10.0-50.0 % Monocytes (%) (Auto) 8.2 0.0-12.0 % Eosinophils (%) (Auto) 2.7 0.0-7.0 % Basophils (%) (Auto) 0.7 0.0-2.0 % Neutrophils # (Auto) 5.0 1.6-8.6 10 ^3/uL Lymphocytes # (Auto) 3.3 0.4-5.4 10 ^3/uL Monocytes # (Auto) 0.8 0-1.3 10 ^3/uL Eosinophils # (Auto) 0.3 0-0.8 10 ^3/uL Basophils # (Auto) 0.1 0-0.2 10 ^3/uL Nucleated Red Blood Cells 0.1 % Sodium Level 140 136-145 mmol/L Potassium Level 3.6 3.5-5.1 mmol/L Chloride Level 107 98-107 mmol/L Carbon Dioxide Level 19 L 20-31 mmol/L Anion Gap 14 5-15 Blood Urea Nitrogen 10 9-23 mg/dL Creatinine 0.84 0.550-1.02 mg/dL Glomerular Filtration Rate Calc 83 >90 mL/min BUN/Creatinine Ratio 11.9 10.0-20.0 Serum Glucose 115 H 74-106 mg/dL Calcium Level 8.8 8.7-10.4 mg/dL Current Medications Medications (Trade) Dose Ordered Sig/[place] Route Start Time Stop Time Status Last Admin Sodium Chloride 1,000 ml @ 1,000 mls/hr Q1H ONCE IV 06/15/25 23:00 06/15/25 23:59 DC 06/16/25 01:17 Ondansetron HCl (Zofran) 4 mg ONCE ONCE IV 06/15/25 23:00 06/15/25 23:01 DC 06/16/25 01:18 Hydromorphone HCl (Dilaudid Injection) 0.5 mg ONCE ONCE IV 06/15/25 23:00 06/15/25 23:01 DC 06/16/25 01:18 Ondansetron HCl (Zofran) 4 mg ONCE ONCE IV 06/16/25 01:30 06/16/25 01:31 DC 06/16/25 02:02 Time of 1ST Reevaluation: 23:35 Reevaluation 1ST: Unchanged Patient Education/Counseling: Diagnosis, Treatment Family Education/Counseling: No Family Present SEPSIS Sepsis Screen Physician Orders Chest Portable (06/15/25 22:56) Ct Ab Pel With Iv Con Only (06/15/25 22:56) Urinalysis (06/15/25 22:56) Vital Signs Date Time Temp Pulse Resp B/P (MAP) Pulse Ox O2 Delivery O2 Flow Rate FiO2 06/16/25 01:18 88 16 148/87 06/16/25 01:08 98.0 89 16 148/87 (107) 95 98.0 06/15/25 23:44 98.2 82 20 145/99 98 98.2 Laboratory Tests Test 06/15/25 23:05 White Blood Count 9.4 10^3/uL (4.4-10.8) Medications Medications Dose Ordered Sig/[place] Route Start Time Stop Time Status Last Admin Dose Admin Hydromorphone HCl 0.5 mg ONCE ONCE IV 06/15/25 23:00 06/15/25 23:01 DC 06/16/25 01:18 Ondansetron HCl 4 mg ONCE ONCE IV 06/15/25 23:00 06/15/25 23:01 DC 06/16/25 01:18 Ondansetron HCl 4 mg ONCE ONCE IV 06/16/25 01:30 06/16/25 01:31 DC 06/16/25 02:02 Sodium Chloride 1,000 ml @ 1,000 mls/hr Q1H ONCE IV 06/15/25 23:00 06/15/25 23:59 DC 06/16/25 01:17 Departure 1 Departure Time of Disposition: 02:39 (Patient presented with abdominal pain GI bleed that was concerning for possible appendicits, gastritis, cholecystitis, colitis, gastroenteritis, sbo, or orther possible surgical emergency. Data: 1. I ordered and reviewed the result of at least 3 labs including a CBC, BMP, and Urinalysis. 2. I independently interpreted the following tests: CT Abdomen and Pelvis is concerning for benign abdomen.Risk:This patient has a high risk of morbidity due to further diagnostic testing or treatment and may suffer from an acute abdominal process disorder. Workup reveals concern for GI bleed and patient should be admitted for further workup. and possible expert consultation. ) Impression: Primary Impression: Lower GI bleed Additional Impression: Intractable abdominal pain Disposition: ADMITTED INPATIENT Admit to: Tele Condition: Guarded Critical Care Note Critical Care Time?: Yes Critical care comment: Intractable abdominal pain Authorized and Performed by: Fouzia Nowak MD Total critical care time: Approximately 39 minutes Due to a high probability of clinically significant, life threatening deterioration, the patient required my highest level of preparedness to intervene emergently and I personally spent this critical care time directly and personally managing the patient. This critical care time included obtaining a history; examining the patient; pulse oximetry; ordering and review of studies; arranging urgent treatment with development of a management plan; evaluation of patient's response to treatment; frequent reassessment; and, discussions with other providers. This critical care time was performed to assess and manage the high probability of imminent, life-threatening deterioration that could result in multi-organ failure. It was exclusive of separately billable procedures and treating other patients and teaching time. Please see my other sections and the rest of the note for further information on patient assessment and treatment. Stability Stability form required: No Heart Score Heart Score: Heart Score Response (Comments) Value History N/A 0 EKG N/A 0 Age N/A 0 Risk Factors N/A 0 Troponin N/A 0 Total 0 I personally scribed for FOUZIA NOWAK MD ([email or web address]) on 06/15/25 at 23:39. Electronically submitted by Abad Mendoza ([facility]). FOUZIA NOWAK MD Jun 15, 2025 23:39
[2025-06-15 23:43] LABS: BUN/Creatinine Ratio 11.9 (10.0-20.0); Blood Urea Nitrogen 10 mg/dL (9-23)
[2025-06-15 23:44] LABS: Carbon Dioxide 19 mmol/L (20-31); Glucose 115 mg/dL (74-106)
--- NOTE | 2025-06-16 01:01 | DVH ---
CHEST RADIOGRAPH Indication: abdominal pain, brbpr Technique: Single frontal view of the chest was obtained COMPARISON: XY CHEST XRAY 1 VIEW on DOS: 06/01/25, XY CHEST PORTABLE on DOS: 01/25/25, XY CHEST PORTABL E on DOS: 01/07/25, XY CHEST XRAY 1 VIEW on DOS: 08/07/24, XY CHEST PORTABLE on DOS: 07/07/24 FINDINGS: Lines and Tubes: None Lungs: Clear Pleura: No effusion. No pneumothorax. Cardiomediastinal contours: Unremarkable Bones: Unremarkable IMPRESSION: 1. No acute disease.
[2025-06-16] MEDS: IOHEXOL 300 MG/ML 100ML BOTTLE IJ ONE (01:10)
[2025-06-16] MEDS: SODIUM CHLORIDE 0.9% 1,000 ML IV ONE (01:17)
[2025-06-16] MEDS: ONDANSETRON HCL 4 MG/2 ML VIAL IV ONE ×2 (01:18→02:02)
[2025-06-16] MEDS: HYDROmorphone HCL 2 MG/ML VL/or syr IV ONE (01:18)
--- NOTE | 2025-06-16 02:24 | DVH ---
Exam: CT CT AB PEL WITH IV CON ONLY History: abdominal pain, brbpr COMPARISON: CT CT AB PEL WITH IV CON ONLY on DOS: 08/07/24, CT ABDOMEN PELVIS WITH on DOS: 03/20/24, CT ABD/PEL on DOS: 02/15/24, CT ABD/PEL on DOS: 02/09/24, CT ABD/PEL on DOS: 04/08/23 Technique: Multidetector spiral CT of the abdomen and pelvis was performed from lung bases to pubic s ymphysis. Intravenous contrast was administered during this examination. Portal venous imaging was o btained. Axial, coronal and sagittal multiplanar reformats were performed by the technologist on a [employer] workstation. Radiation Dose : 1. Abdomen/Pelvis: CTDIvol 25.82 mGy, DLP 1536.73 mGy*cm. CONTRAST: Type of contrast: Omniscan 300 Contrast injected: 100 ml Findings: Lung Bases: No acute or significant lung base finding. Normal heart size. No pleural or pericardial effusion. Small fat containing Bochdalek hernia within the posterior right lung base. Liver: The liver is normal in size. Hepatic steatosis. No focal lesions. Normal hepatic vascular enh ancement. Gallbladder and Biliary Tree: Unremarkable Spleen: Unremarkable Pancreas: The pancreas is normal in appearance without focal lesions or abnormal enhancement. Adrenal Glands: Unremarkable Kidneys: No hydronephrosis. Bladder: Unremarkable Bowel: Moderate hiatal hernia. The stomach is grossly normal in appearance. Extensive diverticulosis coli without CT evidence of acute diverticulitis. Small bowel and colon are otherwise normal in calib er and distribution. The appendix is not visualized; however, no secondary findings of acute appendic itis identified. Ascites: Absent Lymphadenopathy: No mesenteric, retroperitoneal or periportal lymphadenopathy. Abdominal Wall and Mesentery: Unremarkable. Vasculature: The visualized abdominal aorta is normal in size and caliber. Abdominal and pelvic vess els demonstrate normal enhancement. Pelvic Organs: Unremarkable Musculoskeletal: No aggressive focal bony lesions, acute fractures or dislocation. IMPRESSION: 1. No acute abdominal or pelvic finding. 2. Moderate hiatal hernia. 3. Extensive diverticulosis coli without CT evidence of acute diverticulitis. 4. Hepatic steatosis. Radiation optimization: All CT scans at this facility use at least one of these dose optimization ave hniques: automated exposure control mA and/or kV adjustment per patient size (includes targeted exam s where dose is matched to clinical indication) or iterative reconstruction.
[2025-06-16] MEDS ORDERED: MORPHINE SULFATE INJ 2 MG/ml SYRG IV PRN ×2 (10:00→14:45)
[2025-06-16] MEDS ORDERED: ACETAMINOPHEN 325 MG TAB PO PRN (10:00)
[2025-06-16] MEDS ORDERED: NITROGLYCERIN 0.4 MG SL TAB SL PRN (10:00)
[2025-06-16 11:34] VITALS: BP 128/78; PULSE 80; RESP 18; TEMP 98.8; O2SAT 97
[2025-06-16 11:42] VITALS: BP 128/78; PULSE 80; RESP 18; TEMP 98.8; O2SAT 97
[2025-06-16] MEDS: LOSARTAN POTASSIUM 50 MG TAB PO SCH (12:12)
[2025-06-16] MEDS: PANTOPRAZOLE 40 MG/10 ML VIAL INJ IV SCH (12:12)
[2025-06-16] MEDS: ATENOLOL 25 MG TAB PO SCH (12:12)
[2025-06-16] MEDS: HYDROcodone-ACET 5/325MG TAB PO PRN (15:29)
--- NOTE | 2025-06-16 15:55 | DVHHP2 ---
History of Present Illness History of Present Illness Cam Gardner is a 54-year-old female with a history of hyperlipidemia and hypertension presenting to the emergency room with complaints of rectal bleeding and generalized weakness. The patient experienced episodes of rectal bleeding this morning and has been feeling generally weak. She denies any nausea or vomiting. Review of Systems Constitutional: No: Fever, Chills, Sweats, Weakness, Malaise, Other Cardiovascular: No: Chest Pain, Palpitations, Orthopnea, Paroxysmal Noc. Dyspnea, Edema, Lt Headedness, Other Gastrointestinal: No: Nausea, Vomiting, Abdominal Pain, Diarrhea, Constipation, Melena, Hematochezia, Other Allergies: Coded Allergies: Penicillins (Verified Allergy, Severe, 01/15/20) Lisinopril (Verified Allergy, Unknown, Angioedema, 09/06/21) Medications Current Medications Medications Dose Ordered Sig/[place] Route Start Time Stop Time Status Last Admin Dose Admin Acetaminophen 650 mg Q6HP PRN PO 06/16/25 10:00 Nitroglycerin 0.4 mg Q5MINP PRN SL 06/16/25 10:00 Morphine Sulfate 2 mg Q30M PRN IV 06/16/25 10:00 Pantoprazole Sodium 40 mg DAILY IV 06/16/25 10:00 06/16/25 12:12 40 MG Amlodipine Besylate 10 mg DAILY PO 06/16/25 10:00 06/16/25 12:12 10 MG Atenolol 25 mg DAILY PO 06/16/25 10:00 06/16/25 12:12 25 MG Hydralazine HCl 25 mg Q8HR PO 06/16/25 14:00 Losartan Potassium 50 mg BID PO 06/16/25 10:00 06/16/25 12:12 50 MG Pravastatin Sodium 10 mg HS PO 06/16/25 22:00 Acetaminophen/ Hydrocodone Bitart 1 tab Q4HPRN PRN PO 06/16/25 14:45 06/16/25 15:29 1 TAB Morphine Sulfate 2 mg Q4HPRN PRN IV 06/16/25 14:45 Exam Vital Signs Vital Signs Date Time Temp Pulse Resp B/P (MAP) Pulse Ox O2 Delivery O2 Flow Rate FiO2 06/16/25 14:00 105/66 06/16/25 12:12 80 06/16/25 11:42 98.8 18 97 98.8 General Appearance: Alert, Oriented X3, Cooperative, No acute distress Respiratory: Clear to auscultation, Normal air movement Cardiovascular: Regular rate, Normal S1, Normal S2, No murmurs Abdominal: Normal bowel sounds, Soft, No hepatospenomegaly Extremities: No clubbing, No cyanosis Skin: No rashes Labs/Xrays Labs Test 06/15/25 23:05 Range/Units White Blood Count 9.4 4.4-10.8 10^3/uL Red Blood Count 4.87 4.0-5.20 10^6/uL Hemoglobin 11.8 L 12.2-16.2 g/dL Hematocrit 37.4 36.0-46.0 % Mean Corpuscular Volume 76.7 L 80.0-100.0 fL Mean Corpuscular Hemoglobin 24.2 L 28.0-32.0 pg Mean Corpuscular Hemoglobin Concent 31.6 L 32.0-36.0 g/dL Red Cell Distribution Width 15.3 H 11.8-14.3 % Platelet Count 292 140-450 10^3/uL Mean Platelet Volume 8.3 6.9-10.8 fL Neutrophils (%) (Auto) 53.5 37.0-80.0 % Lymphocytes (%) (Auto) 34.9 10.0-50.0 % Monocytes (%) (Auto) 8.2 0.0-12.0 % Eosinophils (%) (Auto) 2.7 0.0-7.0 % Basophils (%) (Auto) 0.7 0.0-2.0 % Neutrophils # (Auto) 5.0 1.6-8.6 10 ^3/uL Lymphocytes # (Auto) 3.3 0.4-5.4 10 ^3/uL Monocytes # (Auto) 0.8 0-1.3 10 ^3/uL Eosinophils # (Auto) 0.3 0-0.8 10 ^3/uL Basophils # (Auto) 0.1 0-0.2 10 ^3/uL Nucleated Red Blood Cells 0.1 % Sodium Level 140 136-145 mmol/L Potassium Level 3.6 3.5-5.1 mmol/L Chloride Level 107 98-107 mmol/L Carbon Dioxide Level 19 L 20-31 mmol/L Anion Gap 14 5-15 Blood Urea Nitrogen 10 9-23 mg/dL Creatinine 0.84 0.550-1.02 mg/dL Glomerular Filtration Rate Calc 83 >90 mL/min BUN/Creatinine Ratio 11.9 10.0-20.0 Serum Glucose 115 H 74-106 mg/dL Calcium Level 8.8 8.7-10.4 mg/dL SEPSIS Sepsis Screen Date sepsis recognized/suspect: Jun 15, 2025 Time Sepsis recognized/suspect: 2244 Recent Procedure: No On Antibiotic Therapy: No Respiratory Rate >20: No Heart Rate >90: No Temp<36 C (96.8 F) or >38.3 C: No SBP <90 or MAP <65 mmHG: No New Acute Mental Status Change: No Is the patient on CPAP, BIPAP,: No Physician Orders Admit (06/16/25 09:52) Full Liq Diet (06/16/25 Lunch) Condition: Fair (06/16/25 09:52) Acetaminophen Tablet (Tylenol Tablet) (06/16/25 10:00) Nitroglycerin Sublingual (Ntrostat Subli (06/16/25 10:00) Morphine Sulfate Injection (06/16/25 10:00) Stat Ekg For Chest Pain (06/16/25 09:52) Notify Md Of Changes From Base (06/16/25 09:52) Hydraulic Rubbish Compactor Mechanic For 24 Hours (06/16/25 09:52) Emergency Dysrhythmia Protocol (06/16/25 09:52) Rhythm Strips Once Every Shift (06/16/25 09:52) Oxygen By Nasal Cannula (06/16/25 09:52) * Gi Dvh Drawing Operator (06/16/25 09:52) Pantoprazole (Protonix) (06/16/25 10:00) Amlodipine Tablet (Norvasc Tablet) (06/16/25 10:00) Atenolol Tablet (Tenormin Tablet) (06/16/25 10:00) Hydralazine Hcl Tablet (Apresoline Table (06/16/25 14:00) Losartan Tablet (Cozaar Tablet) (06/16/25 10:00) Pravastatin Sodium Tablet (Pravachol Tab (06/16/25 22:00) Hydrocodone-Acet 5/325mg Tab ([place] 5/32 (06/16/25 14:45) Morphine Sulfate Injection (06/16/25 14:45) Iron Panel (06/16/25 15:47) Vital Signs Date Time Temp Pulse Resp B/P (MAP) Pulse Ox O2 Delivery O2 Flow Rate FiO2 06/16/25 14:00 105/66 06/16/25 12:12 128/78 06/16/25 12:12 80 128/78 06/16/25 12:12 128/78 06/16/25 11:42 98.8 80 18 128/78 (95) 97 98.8 06/16/25 11:34 98.8 80 18 128/78 (95) 97 98.8 06/16/25 07:58 97.8 76 18 159/96 (117) 98 97.8 Medications Medications Dose Ordered Sig/[place] Route Start Time Stop Time Status Last Admin Dose Admin Acetaminophen/ Hydrocodone Bitart 1 tab Q4HPRN PRN PO 06/16/25 14:45 06/16/25 15:29 1 TAB Amlodipine Besylate 10 mg DAILY PO 06/16/25 10:00 06/16/25 12:12 10 MG Atenolol 25 mg DAILY PO 06/16/25 10:00 06/16/25 12:12 25 MG Losartan Potassium 50 mg BID PO 06/16/25 10:00 06/16/25 12:12 50 MG Pantoprazole Sodium 40 mg DAILY IV 06/16/25 10:00 06/16/25 12:12 40 MG Assessment/Plan Assessment/Plan Gastrointestinal Bleeding Assessment: Patient presents with episodes of rectal bleeding this morning and general weakness. Current hemoglobin is 11.8. The patient denies nausea and vomiting. Given the presentation and symptoms, admission to the hospital is warranted for further evaluation and management. Plan: - Admit patient to the hospital - Consult Gastroenterology - Start Protonix 40 mg daily - Initiate IV fluids - Perform stool guaiac test - Monitor hemoglobin levels Hyperlipidemia Assessment: Patient has a history of hyperlipidemia, currently managed with medi cation. Plan: - Continue pravastatin 10 mg Hypertension Assessment: Patient has a history of hypertension, currently managed with multiple medications. Plan: - Continue losartan 50 mg BID - Continue hydralazine 25 mg Q8H - Continue atenolol 25 mg daily - Continue amlodipine 10 mg daily Morbid Obesity Assessment: Patient noted to have morbid obesity. Plan: - Monitor Plan discussed with: Patient My Orders Orders - FORREST HELM Procedure Category Date Status Time Admit ADMIT 06/16/25 Transmitted 09:52 Full Liq Diet DIET 06/16/25 Transmitted Lunch Condition: Fair LEEROY 06/16/25 In Process 09:52 Acetaminophen Tablet PHA 06/16/25 In Process (Tylenol Tablet) 10:00 Nitroglycerin PHA 06/16/25 In Process Sublingual (Ntrostat 10:00 Morphine Sulfate PHA 06/16/25 In Process Injection 10:00 Stat Ekg For Chest LEEROY 06/16/25 In Process Pain 09:52 Notify Md Of Changes LEEROY 06/16/25 In Process From Base 09:52 Hydraulic Rubbish Compactor Mechanic For LEEROY 06/16/25 In Process 24 Hours 09:52 Emergency Dysrhythmia LEEROY 06/16/25 In Process Protocol 09:52 Rhythm Strips Once LEEROY 06/16/25 In Process Every Shift 09:52 Oxygen By Nasal RT 06/16/25 Transmitted Cannula 09:52 * Gi Dvh Drawing Operator CONS 06/16/25 Transmitted 09:52 Pantoprazole PHA 06/16/25 In Process (Protonix) 10:00 Amlodipine Tablet PHA 06/16/25 In Process (Norvasc Tablet) 10:00 Atenolol Tablet PHA 06/16/25 In Process (Tenormin Tablet) 10:00 Hydralazine Hcl PHA 06/16/25 In Process Tablet (Apresoline 14:00 Losartan Tablet PHA 06/16/25 In Process (Cozaar Tablet) 10:00 Pravastatin Sodium PHA 06/16/25 In Process Tablet (Pravachol Tab 22:00 Hydrocodone-Acet PHA 06/16/25 In Process 5/325mg Tab ([place] 14:45 Morphine Sulfate PHA 06/16/25 In Process Injection 14:45 Iron Panel LAB 06/16/25 Verified 15:47 Date of Service: Jun 16, 2025 Billing Provider: NICOLE LING MD Common Visit Codes: [id number] INP/OBS CARE (MOD) FORREST HELM Jun 16, 2025 15:55
[2025-06-16] MEDS: SODIUM CHLORIDE 0.9% 1,000 ML IV SCH (16:54)
[2025-06-16 17:34] LABS: Iron 121.0 ug/dL (50-170)
[2025-06-16 17:37] LABS: Total Iron Binding Capacity 298.0 ug/dL (250-425)
[2025-06-16 17:49] VITALS: BP 128/79; PULSE 65; RESP 18; TEMP 98; O2SAT 97
[2025-06-16 21:00] VITALS: BP 130/71; PULSE 72; RESP 18; TEMP 97.8; O2SAT 97
--- NOTE | 2025-06-16 21:13 | DVHINCON2 ---
Date of service: Jun 16, 2025 Referring Physician Kurt Louie Reason for Consultation Rectal bleeding History of Present Illness Cam Gardner is a 54-year-old female with a history of hyperlipidemia and hypertension presenting to the emergency room with complaints of rectal bleeding and generalized weakness. The patient experienced episodes of rectal bleeding this morning and has been feeling generally weak. She denies any nausea or vomiting. Patient was seen in the holding area. She was sitting in the bed in no acute distress. Patient stated she still had further GI bleeding. Patient was taking aspirin and also may have added some NSAIDs recently which likely precipitated a diverticular bleed Patient stated she had a recent colonoscopy a few months ago on [address] showed a large hiatal hernia and patient stated she has not had that fixed at least 2 times and has had prior endoscopies Past Medical History PAST MEDICAL HISTORY: Anxiety, Asthma, High Lipids, HTN Morbid obesity, hiatal hernia, diverticulosis Past Surgical History Surgical History: , Hernia Repair Family History: Alcoholism G8 FATHER Colon cancer grandmother Diabetes mellitus G8 BROTHER G8 BROTHER G8 BROTHER FH: CHF (congestive heart failure) G8 FATHER FH: Crohn's disease G8 MOTHER G8 MOTHER FH: cancer FH: heart attack G8 MOTHER Hypertension G8 FATHER G8 MOTHER Patient's brother is G8 BROTHER G8 BROTHER G8 BROTHER G8 BROTHER Patient's father is G8 FATHER Allergies: Coded Allergies: Penicillins (Verified Allergy, Severe, 01/15/20) Lisinopril (Verified Allergy, Unknown, Angioedema, 09/06/21) Home Meds Active Scripts Clonidine Hydrochloride (Clonidine Hcl) 0.1 Mg Tab, 0.1 MG PO Q8HP PRN for 30 Days, #90 TAB Q 8HRS NEEDED PRN SBP>160MMHG Prov:FAWN GUERIN THEATER EDUCATION TEACHER 06/04/25 Hydralazine HCl (Hydralazine HCl) 25 Mg Tab, 25 MG PO Q8HR for 30 Days, #90 TAB Prov:FAWN GUERIN THEATER EDUCATION TEACHER 06/04/25 Losartan Potassium (Losartan Potassium) 50 Mg Tab, 50 MG PO BID for 30 Days, #60 TAB Prov:FAWN GUERIN THEATER EDUCATION TEACHER 06/04/25 Budesonide-Formoterol Fumarate (Budesonide/Formoterol Fum 80-4.5 Mcg/Act) 1 Aer Aer, 1 AER IN BID for 30 Days, #1 AER 2 Refills Prov:ERICKA DAMON RESIDENT 04/08/24 Aspirin (Aspirin Low Dose) 81 Mg Tab, 81 MG PO DAILY for 30 Days, #30 TAB Prov:ERICKA DAMON RESIDENT 04/08/24 Ascorbic Acid (VITAMIN C TABLET) 500 Mg Tb, 1 TAB PO DAILY for 30 Days, #30 TAB 3 Refills Prov:ERICKA DAMON [facility] 04/08/24 Albuterol Sulfate (VENTOLIN MDI) 90 Mcg Ih, 180 MCG IN Q6HP PRN for SHORTNESS OF BREATH for 30 Days, #1 MCG Prov:ERICKA DAMON [facility] 04/08/24 Pantoprazole Sodium Sesquihydr (Protonix) 40 Mg Tab, 40 MG PO DAILY, #30 TAB Prov:JANINE BEST MD 12/27/23 Reported Medications Lovastatin (Lovastatin) 10 Mg Tab, 10 MG PO HS, TAB 06/02/25 Alpha Tocopheryl Acid Succinat (VITAMIN E) 100 Unit Tab, 100 UNIT PO, TAB 09/04/21 Amlodipine Besylate (Amlodipine Besylate) 5 Mg Tab, 10 MG PO DAILY for 30 Days, MG 09/04/21 Atenolol (Atenolol) 25 Mg Tab, 25 MG PO DAILY for 30 Days, MG 09/04/21 Current Medications Current Medications Medications (Trade) Dose Ordered Sig/[place] Route PRN Reason Start Time Stop Time Status Last Admin Acetaminophen (Tylenol Tablet) 650 mg Q6HP PRN PO PAIN SCALE 1-3 OR TEMP>100.4 06/16/25 10:00 Nitroglycerin (Ntrostat Sublingual) 0.4 mg Q5MINP PRN SL FOR CHEST PAIN 06/16/25 10:00 Morphine Sulfate 2 mg Q30M PRN IV FOR CHEST PAIN 06/16/25 10:00 Pantoprazole Sodium (Protonix) 40 mg DAILY IV 06/16/25 10:00 06/16/25 12:12 Amlodipine Besylate (Norvasc Tablet) 10 mg DAILY PO 06/16/25 10:00 06/16/25 12:12 Atenolol (Tenormin Tablet) 25 mg DAILY PO 06/16/25 10:00 06/16/25 12:12 Hydralazine HCl (Apresoline Tablet) 25 mg Q8HR PO 06/16/25 14:00 Losartan Potassium (Cozaar Tablet) 50 mg BID PO 06/16/25 10:00 06/16/25 12:12 Pravastatin Sodium (Pravachol Tablet) 10 mg HS PO 06/16/25 22:00 Acetaminophen/ Hydrocodone Bitart ([place] 5/325MG Tab) 1 tab Q4HPRN PRN PO MODERATE PAIN (4-6 PAIN SCALE) 06/16/25 14:45 06/16/25 15:29 Morphine Sulfate 2 mg Q4HPRN PRN IV SEVERE PAIN (7-10 PAIN SCALE) 06/16/25 14:45 Sodium Chloride 1,000 ml @ 100 mls/hr Q10H IV 06/16/25 16:00 06/16/25 16:54 Vital Signs Vital Signs Date Time Temp Pulse Resp B/P (MAP) Pulse Ox O2 Delivery O2 Flow Rate FiO2 06/16/25 17:49 98.0 65 18 128/79 (95) 97 98.0 Physical Exam General Appearance: Alert, Oriented X3, Cooperative, No acute distress Respiratory: Clear to auscultation, Normal air movement Cardiovascular: Regular rate, Normal S1, Normal S2, No murmurs Abdominal: Normal bowel sounds, Soft, No hepatospenomegaly Extremities: No clubbing, No cyanosis Skin: No rashes Labs/Diagnostic Data Labs Test 06/16/25 16:46 06/16/25 16:05 06/15/25 23:05 Range/Units Iron Level 121 50-170 ug/dL Total Iron Binding Capacity 298 250-425 ug/dL Percent Iron Saturation 40.6 15-50 % Stool Occult Blood Positive Negative Stool Occult Blood Sample #3 Negative White Blood Count 9.4 4.4-10.8 10^3/uL Red Blood Count 4.87 4.0-5.20 10^6/uL Hemoglobin 11.8 L 12.2-16.2 g/dL Hematocrit 37.4 36.0-46.0 % Mean Corpuscular Volume 76.7 L 80.0-100.0 fL Mean Corpuscular Hemoglobin 24.2 L 28.0-32.0 pg Mean Corpuscular Hemoglobin Concent 31.6 L 32.0-36.0 g/dL Red Cell Distribution Width 15.3 H 11.8-14.3 % Platelet Count 292 140-450 10^3/uL Mean Platelet Volume 8.3 6.9-10.8 fL Neutrophils (%) (Auto) 53.5 37.0-80.0 % Lymphocytes (%) (Auto) 34.9 10.0-50.0 % Monocytes (%) (Auto) 8.2 0.0-12.0 % Eosinophils (%) (Auto) 2.7 0.0-7.0 % Basophils (%) (Auto) 0.7 0.0-2.0 % Neutrophils # (Auto) 5.0 1.6-8.6 10 ^3/uL Lymphocytes # (Auto) 3.3 0.4-5.4 10 ^3/uL Monocytes # (Auto) 0.8 0-1.3 10 ^3/uL Eosinophils # (Auto) 0.3 0-0.8 10 ^3/uL Basophils # (Auto) 0.1 0-0.2 10 ^3/uL Nucleated Red Blood Cells 0.1 % Sodium Level 140 136-145 mmol/L Potassium Level 3.6 3.5-5.1 mmol/L Chloride Level 107 98-107 mmol/L Carbon Dioxide Level 19 L 20-31 mmol/L Anion Gap 14 5-15 Blood Urea Nitrogen 10 9-23 mg/dL Creatinine 0.84 0.550-1.02 mg/dL Glomerular Filtration Rate Calc 83 >90 mL/min BUN/Creatinine Ratio 11.9 10.0-20.0 Serum Glucose 115 H 74-106 mg/dL Calcium Level 8.8 8.7-10.4 mg/dL CT SCAN ABD PELVIS IMPRESSION: 1. No acute abdominal or pelvic finding. 2. Moderate hiatal hernia. 3. Extensive diverticulosis coli without CT evidence of acute diverticulitis. 4. Hepatic steatosis. Problems(with codes): (1) Rectal bleeding (2) Anemia Plan/Recommendation Assessment plan Patient is likely having a diverticular hemorrhoid bleeding because of recent aspirin and NSAID use Continue conservative management, continue to monitor labs Clear liquid diet ; IV ppi Patient at this time did not agreed to a repeat colonoscopy I will review her previous records and we will reassess patient on 06/17/2025 to see if she is having ongoing GI bleeding Plan discussed with: Patient PARAM CARRASCO MD Jun 16, 2025 21:13
[2025-06-16] MEDS: PRAVASTATIN SODIUM 20 MG TAB PO SCH (21:15)
[2025-06-17] VITALS (7 sets, daily range): BP systolic 136–166; BP diastolic 78–90; PULSE 62–91; RESP 16–20; TEMP 97.8–98.5; O2SAT 95–99
[2025-06-17 09:35] LABS: Chloride 106 mmol/L (98-107); Potassium 4.2 mmol/L (3.5-5.1); Sodium 140 mmol/L (136-145)
[2025-06-17 09:36] LABS: Anion Gap 9 (5-15); Calcium 8.8 mg/dL (8.7-10.4); Carbon Dioxide 25 mmol/L (20-31)
[2025-06-17 09:41] LABS: BUN/Creatinine Ratio 8.0 (10.0-20.0)
[2025-06-17 10:10] LABS: Blood Urea Nitrogen 7 mg/dL (9-23); Glucose 120 mg/dL (74-106)
[2025-06-17 11:56] LABS: Hematocrit 33.6 % (36.0-46.0); Hemoglobin 10.7 g/dL (12.2-16.2); Mean Corpuscular Hemoglobin 24.6 pg (28.0-32.0); Mean Corpuscular Volume 77.2 fL (80.0-100.0); Nucleated Red Blood Cells % 0.1 %
[2025-06-17] MEDS: GOLYTELY 4L KIT PO ONE ×2 (14:14→21:18)
--- NOTE | 2025-06-17 18:33 | DVHPN2 ---
Progress Note Date Seen: Jun 17, 2025 Medical Necessity Reason Pt with a Central, PICC or Fol: No Subjective Review of Systems: CVS:Normal, RESPIRATORY:Normal, GI:Normal Objective vital signs Vital Sign Date Time Temp Pulse Resp B/P (MAP) Pulse Ox O2 Delivery O2 Flow Rate FiO2 06/17/25 17:00 98.4 90 20 166/89 (114) 95 98.4 06/17/25 00:09 Room Air* 0 21 Total Intake and Output 06/16/25 06/16/25 06/17/25 15:00 23:00 07:00 Intake Total 650 ml 345 ml Balance 650 ml 345 ml medications Current Medications Medications Dose Ordered Sig/[place] Route Start Time Stop Time Status Last Admin Dose Admin Acetaminophen 650 mg Q6HP PRN PO 06/16/25 10:00 Nitroglycerin 0.4 mg Q5MINP PRN SL 06/16/25 10:00 Morphine Sulfate 2 mg Q30M PRN IV 06/16/25 10:00 Pantoprazole Sodium 40 mg DAILY IV 06/16/25 10:00 06/17/25 08:47 40 MG Amlodipine Besylate 10 mg DAILY PO 06/16/25 10:00 06/17/25 08:46 10 MG Atenolol 25 mg DAILY PO 06/16/25 10:00 06/17/25 08:47 25 MG Hydralazine HCl 25 mg Q8HR PO 06/16/25 14:00 06/17/25 13:46 25 MG Losartan Potassium 50 mg BID PO 06/16/25 10:00 06/17/25 08:46 50 MG Pravastatin Sodium 10 mg HS PO 06/16/25 22:00 06/16/25 21:15 10 MG Acetaminophen/ Hydrocodone Bitart 1 tab Q4HPRN PRN PO 06/16/25 14:45 06/17/25 14:14 1 TAB Morphine Sulfate 2 mg Q4HPRN PRN IV 06/16/25 14:45 Examination: GENERAL:Normal, LUNGS:Normal, CVS:Normal, ABDOMEN:Normal, SKIN:Normal, NEURO:Normal laboratory and microbiology Laboratory Tests 06/17/25 11:13 06/17/25 08:45 Test 06/17/25 08:45 Range/Units Serum Glucose 120 H 74-106 mg/dL Labs and/or images reviewed: Labs reviewed by me, Image(s) reviewed by me Problem List/Assessment/Plan Problem List/Assessment/Plan The patient was evaluated by gastroenterology and has been placed on a clear liquid diet with prescribed Saida preparation. The gastroenterology team suspects the patient likely has diverticular hemorrhoid as the source of bleeding. Records from a previous colonoscopy are being obtained for review. The patient remains hospitalized awaiting gastroenterology clearance for discharge and continues on proton pump inhibitor therapy. Gastrointestinal Bleeding Assessment: Patient was evaluated by gastroenterology and likely has diverticular hemorrhoid as the source of bleeding. Current hemoglobin is 10.7. Records from previous colonoscopy are being obtained for further evaluation. Plan: - Clear liquid diet as prescribed by GI - Continue PPI - Await GI clearance for discharge Hypertension Assessment: Patient has established hypertension requiring ongoing management. Plan: - Continue antihypertensive medication Morbid Obesity Assessment: Patient has morbid obesity requiring monitoring. Plan: - Monitor Hyperlipidemia Assessment: Patient has hyperlipidemia requiring continued statin therapy. Plan: - Continue Pravastatin 10 Plan discussed with: Patient Date of Service: Jun 17, 2025 Billing Provider: NICOLE LING MD Common Visit Codes: [id number] INP/OBS CARE (MOD) FORREST HELM FIREFIGHTER TYPE ONE Jun 17, 2025 18:33
--- NOTE | 2025-06-17 19:50 | DVHPN2 ---
Progress Note - Dictate Date Seen: Jun 17, 2025 Medical Necessity Reason Pt with a Central, PICC or Fol: No Subjective Patient seen at bedside resting comfortably She still has ongoing rectal bleeding with her bowel movements It appears to be mostly fresh blood CT showing evidence of a moderate hiatal hernia vital signs Vital Sign Date Time Temp Pulse Resp B/P (MAP) Pulse Ox O2 Delivery O2 Flow Rate FiO2 06/17/25 17:00 98.4 90 20 166/89 (114) 95 98.4 06/17/25 00:09 Room Air* 0 21 Total Intake and Output 06/16/25 06/16/25 06/17/25 15:00 23:00 07:00 Intake Total 650 ml 345 ml Balance 650 ml 345 ml medications Current Medications Medications Dose Ordered Sig/[place] Route Start Time Stop Time Status Last Admin Dose Admin Acetaminophen 650 mg Q6HP PRN PO 06/16/25 10:00 Nitroglycerin 0.4 mg Q5MINP PRN SL 06/16/25 10:00 Morphine Sulfate 2 mg Q30M PRN IV 06/16/25 10:00 Pantoprazole Sodium 40 mg DAILY IV 06/16/25 10:00 06/17/25 08:47 40 MG Amlodipine Besylate 10 mg DAILY PO 06/16/25 10:00 06/17/25 08:46 10 MG Atenolol 25 mg DAILY PO 06/16/25 10:00 06/17/25 08:47 25 MG Hydralazine HCl 25 mg Q8HR PO 06/16/25 14:00 06/17/25 13:46 25 MG Losartan Potassium 50 mg BID PO 06/16/25 10:00 06/17/25 08:46 50 MG Pravastatin Sodium 10 mg HS PO 06/16/25 22:00 06/16/25 21:15 10 MG Acetaminophen/ Hydrocodone Bitart 1 tab Q4HPRN PRN PO 06/16/25 14:45 06/17/25 18:54 1 TAB Morphine Sulfate 2 mg Q4HPRN PRN IV 06/16/25 14:45 objective Physical Exam General Appearance: Alert, Oriented X3, Cooperative, No acute distress Respiratory: Clear to auscultation, Normal air movement Cardiovascular: Regular rate, Normal S1, Normal S2, No murmurs Abdominal: Normal bowel sounds, Soft, No hepatospenomegaly;obese Extremities: No clubbing, No cyanosis Skin: No rashes laboratory and microbiology Laboratory Tests 06/17/25 11:13 06/17/25 08:45 Test 06/17/25 08:45 Range/Units Serum Glucose 120 H 74-106 mg/dL Problems(with codes): (1) Rectal bleeding (2) Anemia (3) GI bleed (4) Diverticulosis (5) Hiatal hernia Prognosis Plan Discussed options with the patient including conservative observation versus proceeding with re-evaluation Patient is wishing to have another colonoscopy I will give her a bowel prep today and tentatively schedule her a possible EGD and colonoscopy on 06/18/2025 Risks and alternatives were explained Plan discussed with: Patient PARAM CARRASCO MD Jun 17, 2025 19:50
[2025-06-17 22:05] LABS: Urine Protein, UAD Negative (Negative)
[2025-06-17 22:16] LABS: Opiate Scree,Urine Neg (NEGATIVE)
[2025-06-17 22:18] LABS: Amphetamine Screen, Urine Neg (NEGATIVE); Barbiturate Scree,Urine Neg (NEGATIVE); Benzodiazephine Screen, Urine Neg (NEGATIVE); Cannabinoid Screen, Urine Neg (NEGATIVE); Cocaine Screen, Urine Neg (NEGATIVE); Phencyclidine Screen, Urine Neg (NEGATIVE)
[2025-06-17 22:30] LABS: INR 0.99 (0.9-1.15); Partial Thromboplastin Time 26.8 SEC (24.5-34.5); Prothrombin Time 10.5 sec (9.3-11.8)
[2025-06-18] VITALS (8 sets, daily range): BP systolic 92–146; BP diastolic 54–93; PULSE 86–109; RESP 16–20; TEMP 98–98.7; O2SAT 94–100
[2025-06-18] MEDS: MAGNESIUM CITRATE SOLUTION 300 ML BTL PO ONE (06:30)
[2025-06-18] MEDS: GOLYTELY 4L KIT PO ONE (06:30)
--- NOTE | 2025-06-18 07:40 | ECG ---
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
--- NOTE | 2025-06-18 13:20 | DVHPN2 ---
Progress Note - Dictate Date Seen: Jun 18, 2025 Medical Necessity Reason Pt with a Central, PICC or Fol: No vital signs Vital Sign Date Time Temp Pulse Resp B/P (MAP) Pulse Ox O2 Delivery O2 Flow Rate FiO2 06/18/25 09:26 141/80 06/18/25 09:26 104 06/18/25 09:00 98.6 18 96 98.6 06/18/25 08:00 Room Air* 0 21 Total Intake and Output 06/17/25 06/17/25 06/18/25 15:00 23:00 07:00 Intake Total 1040 ml 1315 ml Output Total 4 ml 1200 ml Balance 1036 ml 115 ml medications Current Medications Medications Dose Ordered Sig/Roosevelt Route Start Time Stop Time Status Last Admin Dose Admin Acetaminophen 650 mg Q6HP PRN PO 06/16/25 10:00 Nitroglycerin 0.4 mg Q5MINP PRN SL 06/16/25 10:00 Morphine Sulfate 2 mg Q30M PRN IV 06/16/25 10:00 Pantoprazole Sodium 40 mg DAILY IV 06/16/25 10:00 06/18/25 09:25 40 MG Amlodipine Besylate 10 mg DAILY PO 06/16/25 10:00 06/18/25 09:26 10 MG Atenolol 25 mg DAILY PO 06/16/25 10:00 06/18/25 09:26 25 MG Hydralazine HCl 25 mg Q8HR PO 06/16/25 14:00 06/17/25 21:19 25 MG Losartan Potassium 50 mg BID PO 06/16/25 10:00 06/18/25 09:26 50 MG Pravastatin Sodium 10 mg HS PO 06/16/25 22:00 06/17/25 21:20 10 MG Acetaminophen/ Hydrocodone Bitart 1 tab Q4HPRN PRN PO 06/16/25 14:45 06/18/25 06:35 1 TAB Morphine Sulfate 2 mg Q4HPRN PRN IV 06/16/25 14:45 objective General Appearance: alert, no distress HEENT: EOMI, PERRLA, normal external inspect of ears, no icterus, no nasal drainage Neck: no carotid bruit, no jugular venous distention (JVD), no lymphadenopathy Chest: normal thorax Respiratory: clear to auscultation, normal air movement Cardiovascular: regular rate and rhythm, no diastolic murmur, no jugular venous distention (JVD), no rub, no systolic murmur Abdominal: soft, no hepatomegaly, no mass, no splenomegaly, no tenderness Genitourinary: grossly normal external Musculoskeletal: no joint tenderness, no swelling Extremities: normal pulses, no calf tenderness, no clubbing, no cyanosis, no edema Skin: no bruising, no jaundice, no rash Neurological: alert, No focal deficit laboratory and microbiology Laboratory Tests 06/17/25 11:13 06/17/25 08:45 Test 06/17/25 08:45 Range/Units Serum Glucose 120 H 74-106 mg/dL Problem List Gastrointestinal Bleeding Assessment: Patient was evaluated by gastroenterology and likely has diverticular hemorrhoid as the source of bleeding. Current hemoglobin is 10.7. Records from previous colonoscopy are being obtained for further evaluation. Plan: - Clear liquid diet as prescribed by GI - Continue PPI - Await GI clearance for discharge Hypertension Assessment: Patient has established hypertension requiring ongoing management. Plan: - Continue antihypertensive medication Morbid Obesity Assessment: Patient has morbid obesity requiring monitoring. Plan: - Monitor Hyperlipidemia Assessment: Patient has hyperlipidemia requiring continued statin therapy. Plan: - Continue Pravastatin 10 Assessment/Plan Subjective: Patient was not seen in room. Objective: Patient was taken downstairs for colonoscopy. She was admitted for acute GI bleed and had been complaining of bright red rectal bleeding. Hemoglobin was 10.7. Patient was seen by Dr. Salcedo. Plan: Complete colonoscopy today. Monitor CBC. Follow GI recommendations and continue PPI therapy. Plan discussed with: Patient, Other FAWN GUERIN NP Jun 18, 2025 13:20
[2025-06-18] MEDS ORDERED: METOCLOPRAMIDE HCL 5MG/ml INJ 2ml VIAL ONE (13:28)
[2025-06-18] MEDS ORDERED: LIDOCAINE 1% INJ PF 5ML AMP ONE (13:28)
[2025-06-18] MEDS ORDERED: PROPOFOL 10 MG/ML 20 ML IV ONE ×2 (13:28→13:38)
[2025-06-18] MEDS ORDERED: ONDANSETRON HCL 4 MG/2 ML VIAL ONE (13:28)
[2025-06-18] MEDS ORDERED: SODIUM CHLORIDE LOCK 10 ML ONE (13:42)
--- NOTE | 2025-06-18 14:27 | DVHOP2 ---
Operative Report DATE OF OPERATION: 06/18/25 PROCEDURE: Upper Endoscopy with biopsy. PREOPERATIVE INDICATION: The patient is a 54 -year-old female undergoing endoscopy for GI bleed and abnormal finding GI tract imaging POSTOPERATIVE DIAGNOSES: 1. 3 cm sliding-type hiatal hernia with slightly irregular squamocolumnar ju nction with no significant erosive esophagitis 2. Mild gastritis otherwise normal examination up to the 2nd and 3rd part of the duodenum PROCEDURE PERFORMED BY: Param Salcedo GI NURSE: Yesica SCOPE: Olympus videoendoscope. ASA CLASS: 3 PREOPERATIVE MEDICATIONS: Mac sedation, Jamie Jaime PROCEDURE IN DETAIL: After obtaining an informed consent, the patient was placed on left lateral decubitus position. The patient was then sedated with the above medications. A bite block was placed between her teeth. The endoscope was then passed through the oropharynx, into the esophagus, and through the stomach and pylorus up to the second and third part of the duodenum. The endoscope was then withdrawn. Second and third part of the duodenum and the duodenal bulb were normal. Duodenal biopsies were obtained The pre-pyloric area and antrum showed mild gastritis. Gastric biopsies were obtained. On retroflexion the fundus and cardia were normal. There was no fresh or old blood in the upper GI tract The endoscope was then withdrawn into distal esophagus where she had a 2-3 cm sliding type hiatal hernia with slightly irregular squamocolumnar junction There was no esophagitis and the remaining distal and proximal esophagus and oropharynx were unremarkable The patient tolerated the procedure well without difficulty. COMPLICATIONS : None SPECIMENS: Duodenal biopsies Gastric biopsies DISPOSITION: Transfer back to the floor Stable PLAN: 1. Await for biopsy result 2. Will place pt on Protonix 40 mg po 3. Resume clear liquid diet advance as tolerated 4. Proceed with colonoscopy PARAM SALCEDO MD Jun 18, 2025 14:27
--- NOTE | 2025-06-18 14:46 | DVHOP2 ---
Operative Report DATE OF OPERATION: 06/18/25 PROCEDURE: Colonoscopy with cold biopsy. PREOPERATIVE INDICATION: The patient is a 54 -year-old female undergoing colonoscopy for lower GI bleed POSTOPERATIVE DIAGNOSES: 1. Patient had a moderate amount of old liquid blood present throughout the length of the colon more prominent in the left colon than the right 2. There was extensive scattered diverticular disease most prominent in the left colon which is the likely source of bleeding 3. There were three or four diminutive benign-appearing sigmoid polyps were seen and removed by cold biopsy forceps 4. Trace internal hemorrhoids otherwise completely normal colonoscopy examination up to the cecum PROCEDURE PERFORMED BY: Param Salcedo M.D. SCOPE: Olympus videocolonoscope. ASA CLASS: 3 PREOPERATIVE MEDICATIONS: MAC sedation Jamie Jaime PROCEDURE IN DETAIL: After obtaining an informed consent, the patient was placed on left lateral decubitus position. She was then sedated with the above medications. A rectal examination was performed that was normal. The colonoscope was then passed through the anus into the rectosigmoid and through the descending, transverse, and ascending colon up to the cecum with visualization of the appendiceal orifice, base of the cecum and the ileocecal valve. The colonoscope was then withdrawn. No masses or colitis were seen. Patient had a moderate amount of residual old dark blood in the colon This was carefully aspirated and no underlying clear-cut source of bleeding could be identified Patient had extensive diverticular disease most prominent in the sigmoid and there was more residual old blood in the left colon There were three diminutive benign-appearing sigmoid polyps were seen and removed by cold biopsy forceps On retroflexion she had trace to 1+ internal hemorrhoids. The patient tolerated the procedure well without difficulty. WITHDRAWAL TIME: 10 minutes QUALITY OF THE PREP: [place] Bowel Prep score: 7 old blood in the colon COMPLICATIONS : None SPECIMENS: Tiny sigmoid colon polyps DISPOSITION: Transfer back to the floor Stable PLAN: 1. Repeat colonoscopy based on biopsy result likely in five years or as clinically indicated 2. Continue to keep this patient NPO on ice chips 3. Clear liquid diet if GI bleeding results and she tolerates the ice chips and water 4. Continue to monitor labs and discontinue aspirin and NSAIDs PARAM SALCEDO MD Jun 18, 2025 14:46
[2025-06-18 15:33] LABS: Hematocrit 27.2 % (36.0-46.0); Hemoglobin 8.6 g/dL (12.2-16.2); Mean Corpuscular Hemoglobin 24.4 pg (28.0-32.0); Mean Corpuscular Volume 77.1 fL (80.0-100.0); Nucleated Red Blood Cells % 0.0 %
[2025-06-19] VITALS (7 sets, daily range): BP systolic 119–151; BP diastolic 73–93; PULSE 85–106; RESP 16–20; TEMP 97.9–98.3; O2SAT 96–98
--- NOTE | 2025-06-19 11:17 | DVHPN2 ---
Progress Note - Dictate Date Seen: Jun 19, 2025 Medical Necessity Reason Pt with a Central, PICC or Fol: No vital signs Vital Sign Date Time Temp Pulse Resp B/P (MAP) Pulse Ox O2 Delivery O2 Flow Rate FiO2 06/19/25 09:03 124/73 06/19/25 09:03 89 06/19/25 08:30 98.3 17 98 98.3 06/19/25 08:00 Room Air* 0 21 Total Intake and Output 06/18/25 06/18/25 06/19/25 15:00 23:00 07:00 Intake Total 25 ml 520 ml 0 ml Output Total 1100 ml Balance 25 ml -580 ml 0 ml medications Current Medications Medications Dose Ordered Sig/Roosevelt Route Start Time Stop Time Status Last Admin Dose Admin Acetaminophen 650 mg Q6HP PRN PO 06/16/25 10:00 Nitroglycerin 0.4 mg Q5MINP PRN SL 06/16/25 10:00 Morphine Sulfate 2 mg Q30M PRN IV 06/16/25 10:00 Pantoprazole Sodium 40 mg DAILY IV 06/16/25 10:00 06/19/25 09:03 40 MG Amlodipine Besylate 10 mg DAILY PO 06/16/25 10:00 06/19/25 09:02 10 MG Atenolol 25 mg DAILY PO 06/16/25 10:00 06/19/25 09:03 25 MG Hydralazine HCl 25 mg Q8HR PO 06/16/25 14:00 06/19/25 05:42 25 MG Losartan Potassium 50 mg BID PO 06/16/25 10:00 06/19/25 09:03 50 MG Pravastatin Sodium 10 mg HS PO 06/16/25 22:00 06/18/25 20:50 10 MG Acetaminophen/ Hydrocodone Bitart 1 tab Q4HPRN PRN PO 06/16/25 14:45 06/19/25 10:48 1 TAB Morphine Sulfate 2 mg Q4HPRN PRN IV 06/16/25 14:45 objective General Appearance: alert, no distress HEENT: EOMI, PERRLA, normal external inspect of ears, no icterus, no nasal drainage Neck: no carotid bruit, no jugular venous distention (JVD), no lymphadenopathy Chest: normal thorax Respiratory: clear to auscultation, normal air movement Cardiovascular: regular rate and rhythm, no diastolic murmur, no jugular venous distention (JVD), no rub, no systolic murmur Abdominal: soft, no hepatomegaly, no mass, no splenomegaly, no tenderness Genitourinary: grossly normal external Musculoskeletal: no joint tenderness, no swelling Extremities: normal pulses, no calf tenderness, no clubbing, no cyanosis, no edema Skin: no bruising, no jaundice, no rash Neurological: alert, No focal deficit laboratory and microbiology Laboratory Tests 06/18/25 15:12 06/17/25 08:45 Test 06/17/25 08:45 Range/Units Serum Glucose 120 H 74-106 mg/dL Problem List Gastrointestinal Bleeding Assessment: Patient was evaluated by gastroenterology and likely has diverticular hemorrhoid as the source of bleeding. Current hemoglobin is 10.7. Records from previous colonoscopy are being obtained for further evaluation. Plan: - Clear liquid diet as prescribed by GI - Continue PPI - Await GI clearance for discharge Hypertension Assessment: Patient has established hypertension requiring ongoing management. Plan: - Continue antihypertensive medication Morbid Obesity Assessment: Patient has morbid obesity requiring monitoring. Plan: - Monitor Hyperlipidemia Assessment: Patient has hyperlipidemia requiring continued statin therapy. Plan: - Continue Pravastatin 10 Assessment/Plan Subjective: Patient is awake and alert. Objective: Patient is status post colonoscopy done yesterday by Dr. Salcedo. Patient had a moderate amount of liquid blood found during procedure. Patient has a history of diverticular disease and internal hemorrhoids. 3 polyps were removed and sent to pathology. Patient is currently NPO. Plan: Continue NPO status. GI to reevaluate for possible advancement of diet. Monitor daily labs. Plan discussed with: Patient, Other FAWN GUERIN NP Jun 19, 2025 11:17
--- NOTE | 2025-06-19 20:47 | DVHPN2 ---
Progress Note - Dictate Date Seen: Jun 19, 2025 Medical Necessity Reason Pt with a Central, PICC or Fol: No Subjective No further episodes of rectal bleeding nausea or vomiting Patient is hungry and would like to eat Patient is still had some fresh and old blood in her colon yesterday on colonoscopy likely related to extensive diverticulosis EGD had shown a hiatal hernia medium-sized and mild gastritis with no bleeding vital signs Vital Sign Date Time Temp Pulse Resp B/P (MAP) Pulse Ox O2 Delivery O2 Flow Rate FiO2 06/19/25 16:49 97.9 86 18 131/88 (102) 97 97.9 06/19/25 08:00 Room Air* 0 21 Total Intake and Output 06/18/25 06/18/25 06/19/25 15:00 23:00 07:00 Intake Total 25 ml 520 ml 0 ml Output Total 1100 ml Balance 25 ml -580 ml 0 ml medications Current Medications Medications Dose Ordered Sig/Roosevelt Route Start Time Stop Time Status Last Admin Dose Admin Acetaminophen 650 mg Q6HP PRN PO 06/16/25 10:00 Nitroglycerin 0.4 mg Q5MINP PRN SL 06/16/25 10:00 Morphine Sulfate 2 mg Q30M PRN IV 06/16/25 10:00 Pantoprazole Sodium 40 mg DAILY IV 06/16/25 10:00 06/19/25 09:03 40 MG Amlodipine Besylate 10 mg DAILY PO 06/16/25 10:00 06/19/25 09:02 10 MG Atenolol 25 mg DAILY PO 06/16/25 10:00 06/19/25 09:03 25 MG Hydralazine HCl 25 mg Q8HR PO 06/16/25 14:00 06/19/25 14:52 25 MG Losartan Potassium 50 mg BID PO 06/16/25 10:00 06/19/25 09:03 50 MG Pravastatin Sodium 10 mg HS PO 06/16/25 22:00 06/18/25 20:50 10 MG Acetaminophen/ Hydrocodone Bitart 1 tab Q4HPRN PRN PO 06/16/25 14:45 06/19/25 10:48 1 TAB Morphine Sulfate 2 mg Q4HPRN PRN IV 06/16/25 14:45 objective Physical Exam General Appearance: Alert, Oriented X3, Cooperative, No acute distress Respiratory: Clear to auscultation, Normal air movement Cardiovascular: Regular rate, Normal S1, Normal S2, No murmurs Abdominal: Normal bowel sounds, Soft, No hepatospenomegaly;obese Extremities: No clubbing, No cyanosis Skin: No rashes laboratory and microbiology Laboratory Tests 06/18/25 15:12 06/17/25 08:45 Test 06/17/25 08:45 Range/Units Serum Glucose 120 H 74-106 mg/dL Problems(with codes): (1) Lower GI bleed (2) Anemia (3) Diverticulosis (4) Hiatal hernia Prognosis Plan Hemoglobin did drift down to 8.6 Repeat labs in a.m. Start her on clear liquid diet and if she tolerates advance to full liquid DC aspirin NSAIDs Plan discussed with: Other (Nurse) PARAM CARRASCO MD Jun 19, 2025 20:47
[2025-06-20 01:00] VITALS: BP 128/70; PULSE 80; RESP 18; TEMP 98.3; O2SAT 98
[2025-06-20 05:00] VITALS: BP 116/72; PULSE 79; RESP 18; TEMP 97.8; O2SAT 99
[2025-06-20 08:16] LABS: Hematocrit 28.0 % (36.0-46.0); Hemoglobin 8.7 g/dL (12.2-16.2); Mean Corpuscular Hemoglobin 24.2 pg (28.0-32.0); Mean Corpuscular Volume 77.8 fL (80.0-100.0); Nucleated Red Blood Cells % 0.1 %
--- NOTE | 2025-06-20 11:30 | DVHPN2 ---
Progress Note - Dictate Date Seen: Jun 20, 2025 Medical Necessity Reason Pt with a Central, PICC or Fol: No vital signs Vital Sign Date Time Temp Pulse Resp B/P (MAP) Pulse Ox O2 Delivery O2 Flow Rate FiO2 06/20/25 10:06 126/74 06/20/25 10:06 100 06/20/25 05:00 97.8 18 99 97.8 06/19/25 20:00 Room Air* 0 21 Total Intake and Output 06/19/25 06/19/25 06/20/25 15:00 23:00 07:00 Intake Total 0 ml 320 ml Balance 0 ml 320 ml medications Current Medications Medications Dose Ordered Sig/[place] Route Start Time Stop Time Status Last Admin Dose Admin Acetaminophen 650 mg Q6HP PRN PO 06/16/25 10:00 Nitroglycerin 0.4 mg Q5MINP PRN SL 06/16/25 10:00 Morphine Sulfate 2 mg Q30M PRN IV 06/16/25 10:00 Pantoprazole Sodium 40 mg DAILY IV 06/16/25 10:00 06/19/25 09:03 40 MG Amlodipine Besylate 10 mg DAILY PO 06/16/25 10:00 06/20/25 10:04 10 MG Atenolol 25 mg DAILY PO 06/16/25 10:00 06/20/25 10:06 25 MG Hydralazine HCl 25 mg Q8HR PO 06/16/25 14:00 06/20/25 06:28 25 MG Losartan Potassium 50 mg BID PO 06/16/25 10:00 06/20/25 10:06 50 MG Pravastatin Sodium 10 mg HS PO 06/16/25 22:00 06/19/25 22:12 10 MG Acetaminophen/ Hydrocodone Bitart 1 tab Q4HPRN PRN PO 06/16/25 14:45 06/20/25 03:16 1 TAB Morphine Sulfate 2 mg Q4HPRN PRN IV 06/16/25 14:45 objective General Appearance: alert, no distress HEENT: EOMI, PERRLA, normal external inspect of ears, no icterus, no nasal drainage Neck: no carotid bruit, no jugular venous distention (JVD), no lymphadenopathy Chest: normal thorax Respiratory: clear to auscultation, normal air movement Cardiovascular: regular rate and rhythm, no diastolic murmur, no jugular venous distention (JVD), no rub, no systolic murmur Abdominal: soft, no hepatomegaly, no mass, no splenomegaly, no tenderness Genitourinary: grossly normal external Musculoskeletal: no joint tenderness, no swelling Extremities: normal pulses, no calf tenderness, no clubbing, no cyanosis, no edema Skin: no bruising, no jaundice, no rash Neurological: alert, No focal deficit laboratory and microbiology Laboratory Tests 06/20/25 07:06 06/17/25 08:45 Test 06/17/25 08:45 Range/Units Serum Glucose 120 H 74-106 mg/dL Problem List Gastrointestinal Bleeding Assessment: Patient was evaluated by gastroenterology and likely has diverticular hemorrhoid as the source of bleeding. Current hemoglobin is 10.7. Records from previous colonoscopy are being obtained for further evaluation. Plan: - Clear liquid diet as prescribed by GI - Continue PPI - Await GI clearance for discharge Hypertension Assessment: Patient has established hypertension requiring ongoing management. Plan: - Continue antihypertensive medication Morbid Obesity Assessment: Patient has morbid obesity requiring monitoring. Plan: - Monitor Hyperlipidemia Assessment: Patient has hyperlipidemia requiring continued statin therapy. Plan: - Continue Pravastatin 10 Assessment/Plan Subjective: Patient is awake and alert. Objective: Patient is doing well and was advanced to a full liquid diet today. She was admitted for a GI bleed and is status post colonoscopy. Findings included diverticular disease, a hiatal hernia, and mild gastritis. Three polyps were removed. Plan: Patient will follow up with GI outpatient for pathology results. Continue full liquid diet, avoid aspirin and NSAIDs, monitor hemoglobin, and start IV iron. Discharge planning for tomorrow. Plan discussed with: Patient, Other FAWN GUERIN NP Jun 20, 2025 11:30
[2025-06-20 13:00] VITALS: BP 126/78; PULSE 90; RESP 18; TEMP 98.1; O2SAT 98
[2025-06-20] MEDS: IRON SUCROSE COMPLEX 110 ML IV SCH (13:03)
[2025-06-20] MEDS: HYDROmorphone HCL 2 MG/ML VL/or syr IV PRN (13:06)
[2025-06-20 16:38] VITALS: BP 118/75; PULSE 80; RESP 17; TEMP 97.8; O2SAT 95
[2025-06-20 20:00] VITALS: O2SAT 97
[2025-06-20 21:17] VITALS: BP 127/88; PULSE 88; RESP 18; TEMP 98; O2SAT 97
--- NOTE | 2025-06-20 21:58 | DVHPN2 ---
Progress Note - Dictate Date Seen: Jun 20, 2025 Medical Necessity Reason Pt with a Central, PICC or Fol: No Subjective No further episodes of rectal bleeding nausea or vomiting Hemoglobin stable at 8.7 on IV iron Patient is hungry and would like to eat Patient is still had some fresh and old blood in her colon on colonoscopy likely related to extensive diverticulosis EGD had shown a hiatal hernia medium-sized and mild gastritis with no bleeding vital signs Vital Sign Date Time Temp Pulse Resp B/P (MAP) Pulse Ox O2 Delivery O2 Flow Rate FiO2 06/20/25 21:55 127/88 06/20/25 21:17 98.0 88 18 97 98.0 06/20/25 08:00 Room Air* 0 21 Total Intake and Output 06/19/25 06/19/25 06/20/25 15:00 23:00 07:00 Intake Total 0 ml 320 ml Balance 0 ml 320 ml medications Current Medications Medications Dose Ordered Sig/[place] Route Start Time Stop Time Status Last Admin Dose Admin Acetaminophen 650 mg Q6HP PRN PO 06/16/25 10:00 Nitroglycerin 0.4 mg Q5MINP PRN SL 06/16/25 10:00 Morphine Sulfate 2 mg Q30M PRN IV 06/16/25 10:00 Pantoprazole Sodium 40 mg DAILY IV 06/16/25 10:00 06/20/25 13:03 40 MG Amlodipine Besylate 10 mg DAILY PO 06/16/25 10:00 06/20/25 10:04 10 MG Atenolol 25 mg DAILY PO 06/16/25 10:00 06/20/25 10:06 25 MG Hydralazine HCl 25 mg Q8HR PO 06/16/25 14:00 06/20/25 21:54 25 MG Losartan Potassium 50 mg BID PO 06/16/25 10:00 06/20/25 21:55 50 MG Pravastatin Sodium 10 mg HS PO 06/16/25 22:00 06/20/25 21:56 10 MG Acetaminophen/ Hydrocodone Bitart 1 tab Q4HPRN PRN PO 06/16/25 14:45 06/20/25 03:16 1 TAB Iron Sucrose 110 ml @ 110 mls/hr DAILY@1200 IV 06/20/25 12:00 06/24/25 12:59 06/20/25 13:03 110 MLS/HR Hydromorphone HCl 0.5 mg Q4HPRN PRN IV 06/20/25 12:30 06/20/25 18:42 0.5 MG objective Physical Exam General Appearance: Alert, Oriented X3, Cooperative, No acute distress Respiratory: Clear to auscultation, Normal air movement Cardiovascular: Regular rate, Normal S1, Normal S2, No murmurs Abdominal: Normal bowel sounds, Soft, No hepatospenomegaly;obese Extremities: No clubbing, No cyanosis Skin: No rashes laboratory and microbiology Laboratory Tests 06/20/25 07:06 06/17/25 08:45 Test 06/17/25 08:45 Range/Units Serum Glucose 120 H 74-106 mg/dL Problems(with codes): (1) Hiatal hernia (2) GI bleed (3) Diverticulosis (4) Anemia (5) Lower GI bleed Prognosis Plan Advance to soft mechanical diet Continue to monitor labs PT and ambulate patient If H&H is stable and no further bleeding then discharge planning in 24-48 hours as per hospitalist I will follow up patient with you and patient was advised to avoid naproxen aspirin and NSAIDs Dietary Evaluation Review Comments: Iron-rich diet, texture as tolerated. Pt would benefit from increased physical activity to support overall health and functional mobility. Wt management is desirable upon D/C Expected Outcomes/Goals: gradual wt loss, avoid comorbidities Plan discussed with: Patient PARAM CARRASCO MD Jun 20, 2025 21:58
[2025-06-21 01:23] VITALS: BP 148/90; PULSE 85; RESP 17; TEMP 97.7; O2SAT 97
[2025-06-21 05:17] VITALS: BP 152/95; PULSE 92; RESP 19; TEMP 97.5; O2SAT 99
[2025-06-21 08:00] VITALS: O2SAT 97
[2025-06-21 08:58] VITALS: BP 159/94; PULSE 105; RESP 18; TEMP 98.2; O2SAT 95
[2025-06-21] MEDS ORDERED: PANT40TA2 PO (11:54)
--- NOTE | 2025-06-21 11:56 | DVHDS2 ---
Discharge Summary Date of Admission Jun 16, 2025 at 09:52 Date of Discharge: Jun 21, 2025 Labs/Diagnostic Data: Laboratory Results Test 06/20/25 07:06 06/17/25 21:45 06/17/25 20:45 06/17/25 08:45 White Blood Count 6.6 10^3/uL (4.4-10.8) Red Blood Count 3.60 10^6/uL (4.0-5.20) Hemoglobin 8.7 g/dL (12.2-16.2) Hematocrit 28.0 % (36.0-46.0) Mean Corpuscular Volume 77.8 fL (80.0-100.0) Mean Corpuscular Hemoglobin 24.2 pg (28.0-32.0) Mean Corpuscular Hemoglobin Concent 31.2 g/dL (32.0-36.0) Red Cell Distribution Width 15.4 % (11.8-14.3) Platelet Count 271 10^3/uL (140-450) Mean Platelet Volume 8.3 fL (6.9-10.8) Neutrophils (%) (Auto) 59.5 % (37.0-80.0) Lymphocytes (%) (Auto) 25.1 % (10.0-50.0) Monocytes (%) (Auto) 8.8 % (0.0-12.0) Eosinophils (%) (Auto) 6.1 % (0.0-7.0) Basophils (%) (Auto) 0.5 % (0.0-2.0) Neutrophils # (Auto) 3.9 10 ^3/uL (1.6-8.6) Lymphocytes # (Auto) 1.6 10 ^3/uL (0.4-5.4) Monocytes # (Auto) 0.6 10 ^3/uL (0-1.3) Eosinophils # (Auto) 0.4 10 ^3/uL (0-0.8) Basophils # (Auto) 0 10 ^3/uL (0-0.2) Nucleated Red Blood Cells 0.1 % Prothrombin Time 10.5 sec (9.3-11.8) Prothrombin Time INR 0.99 (0.9-1.15) Activated Partial Thromboplast Time 26.8 SEC (24.5-34.5) Urine Color Colorless (Yellow) Urine Clarity Clear (Clear) Urine pH 7.0 (5.0-9.0) Urine Specific [place] 1.009 (1.001-1.035) Urine Protein Negative (Negative) Urine Ketones Trace (Negative) Urine Blood Negative /uL (Negative) Urine Nitrite Negative (Negative) Urine Bilirubin Negative (Negative) Urine Urobilinogen Normal mg/dL (Negative) Urine Leukocyte Esterase Negative /uL (Negative) Urine RBC <1 /hpf (0 - 4) Urine Microscopic WBC /HPF (0-5) Urine Squamous Epithelial Cells Few /hpf (<5) Urine Bacteria Few /hpf (None Seen) Urine Glucose Normal mg/dL (Normal) Urine Opiates Screen Neg (NEGATIVE) Urine Fentanyl Screen Neg (NEGATIVE) Urine Barbiturates Screen Neg (NEGATIVE) Urine Phencyclidine Screen Neg (NEGATIVE) Urine Amphetamines Screen Neg (NEGATIVE) Urine Benzodiazepines Screen Neg (NEGATIVE) Urine Cocaine Screen Neg (NEGATIVE) Urine Cannabinoids Screen Neg (NEGATIVE) Sodium Level 140 mmol/L (136-145) Potassium Level 4.2 mmol/L (3.5-5.1) Chloride Level 106 mmol/L (98-107) Carbon Dioxide Level 25 mmol/L (20-31) Anion Gap 9 (5-15) Blood Urea Nitrogen 7 mg/dL (9-23) Creatinine 0.87 mg/dL (0.550-1.02) Glomerular Filtration Rate Calc 79 mL/min (>90) BUN/Creatinine Ratio 8.0 (10.0-20.0) Serum Glucose 120 mg/dL (74-106) Calcium Level 8.8 mg/dL (8.7-10.4) Test 06/16/25 16:46 06/16/25 16:05 Iron Level 121 ug/dL (50-170) Total Iron Binding Capacity 298 ug/dL (250-425) Percent Iron Saturation 40.6 % (15-50) Stool Occult Blood Positive (Negative) Stool Occult Blood Sample #3 (Negative) Other Laboratory Tests 06/20/25 07:06 06/17/25 08:45 Brief Hx & Hospital Course: Cam Gardner is a 54-year-old female with a history of hyperlipidemia and hypertension presenting to the emergency room with complaints of rectal bleeding and generalized weakness. The patient experienced episodes of rectal bleeding this morning and has been feeling generally weak. She denies any nausea or vomiting. Patient was admitted on 06/16/2025. Patient was a GI bleed. She was taking 81mg of Aspirin daily. Patient was seen by gastroenterology. Patient's stool was positive for occult blood. Patient is status post colonoscopy. 3 polyps were taken and sent for pathology. Patient found to have moderate amount of blood during procedure. Patient's diet was slowly advanced. No further signs of bleeding was found. Patient received IV iron while hospitalized. Patient's diet was advanced to soft. Patient denied any nausea, vomiting, or abdominal pain. Repeat hemoglobin was stable. Patient was discharged home. She was instructed to follow up with GI for follow-up on pathology reports. The patient received proper medical treatment and medications. Vital signs, Imaging and Laboratory Work was monitored. All consults recommendations were followed as provided. There were no complaints or new complaints upon discharge, all questions and concerns were answered. Patient was advised to return to the ER or call 911 if any headaches, dizziness, shortness of breath, chest pain, bleeding, fevers, or worsening of medical condition. Patient/Family was counseled about treatment plan, medications, possible side effects, patientverbalized understanding. All questions were answered to the best of my ability. The patient symptoms improved and they are okay to be DC. Condition at Discharge: Stable Final Diagnosis/Problems List GI bleed Hypertension Morbid obesity Hyperlipidemia Discharge Disposition: Home Discharge Instruct/Medications Diet: Cardiac 2g Na,low cholest Activity: No Restrictions, As Tolerated Follow Up/Referral: F/U Dr. Carlton Salcedo for biopsy results Scheduled Amlodipine Besylate (Amlodipine Besylate), 10 MG PO DAILY, (Reported) Ascorbic Acid (Vitamin C Tablet), 1 TAB PO DAILY Atenolol (Atenolol), 25 MG PO DAILY, (Reported) Budesonide-Formoterol Fumarate (Budesonide/Formoterol Fum 80-4.5 Mcg/Act), 1 AER IN BID Hydralazine HCl (Hydralazine HCl), 25 MG PO Q8HR Losartan Potassium (Losartan Potassium), 50 MG PO BID Lovastatin (Lovastatin), 10 MG PO HS, (Reported) Pantoprazole Sodium Sesquihydr (Protonix), 40 MG PO DAILY Scheduled PRN Albuterol Sulfate (Ventolin Mdi), 180 MCG IN Q6HP PRN for SHORTNESS OF BREATH Clonidine Hydrochloride (Clonidine Hcl), 0.1 MG PO Q8HP PRN Miscellaneous Medications Alpha Tocopheryl Acid Succinat (Vitamin E), 100 UNIT PO, (Reported) Discontinued Medications Aspirin (Aspirin Low Dose), 81 MG PO DAILY Discharge Statement: "Patient was advised to return to the ER or call 911 if any headaches, dizziness, shortness of breath, chest pain, abdominal pain, bleeding, fevers, or worsening of medical condition. Patient was counseled about treatment plan, medications, possible side effects, patientverbalized understanding. All questions were answered to the best of my ability. This discharge took greater then 30 minutes in planning, reviewing documentation, counseling the patient, and discussing with other team members." ASSESSMENT ASSESSMENT Assessment GI bleed FAWN GUERIN NP Jun 21, 2025 11:56
[2025-06-21 12:54] VITALS: BP 148/86; PULSE 98; RESP 18; TEMP 98.5; O2SAT 97
[2025-06-21 13:31] LABS: Hematocrit 27.9 % (36.0-46.0); Hemoglobin 8.6 g/dL (12.2-16.2); Mean Corpuscular Hemoglobin 24.3 pg (28.0-32.0); Mean Corpuscular Volume 78.7 fL (80.0-100.0); Nucleated Red Blood Cells % 0.8 %
--- NOTE | 2025-06-21 22:34 | DVHPN2 ---
Progress Note - Dictate Date Seen: Jun 21, 2025 (Late entry Time of visit 1:00 p.m.) Medical Necessity Reason Pt with a Central, PICC or Fol: No Subjective No further episodes of rectal bleeding nausea or vomiting Hemoglobin stable at 8.6 on IV iron Tolerating soft mechanical diet GI bleeding likely related to extensive diverticulosis EGD had shown a hiatal hernia medium-sized and mild gastritis with no bleeding vital signs Vital Sign Date Time Temp Pulse Resp B/P (MAP) Pulse Ox O2 Delivery O2 Flow Rate FiO2 06/21/25 12:54 98.5 98 18 148/86 (106) 97 98.5 06/21/25 08:00 Room Air* 0 21 Total Intake and Output 06/20/25 06/20/25 06/21/25 15:00 23:00 07:00 Intake Total 110 ml 720 ml 750 ml Balance 110 ml 720 ml 750 ml objective Physical Exam General Appearance: Alert, Oriented X3, Cooperative, No acute distress Respiratory: Clear to auscultation, Normal air movement Cardiovascular: Regular rate, Normal S1, Normal S2, No murmurs Abdominal: Normal bowel sounds, Soft, No hepatospenomegaly;obese Extremities: No clubbing, No cyanosis Skin: No rashes laboratory and microbiology Laboratory Tests 06/21/25 13:00 06/17/25 08:45 Test 06/17/25 08:45 Range/Units Serum Glucose 120 H 74-106 mg/dL Problems(with codes): (1) Hiatal hernia (2) GI bleed (3) Diverticulosis (4) Rectal bleeding (5) Anemia Prognosis Plan Advance diet as tolerated Discharge planning is in progress Patient was advised to avoid aspirin and NSAIDs and use Tylenol instead Patient can follow up in my office as an outpatient to review results and discuss further management Dietary Evaluation Review Comments: Iron-rich diet, texture as tolerated. Pt would benefit from increased physical activity to support overall health and functional mobility. Wt management is desirable upon D/C Expected Outcomes/Goals: gradual wt loss, avoid comorbidities Plan discussed with: Patient, Other (Family at bedside) PARAM CARRASCO MD Jun 21, 2025 22:34
== END 2025-06-21 15:20 | disposition home or self-care (01) | DRG 244 ==
LOC: EDBD 22:36 → ER 22:36 → OVERFLOW 06-16 09:52 → WEST WING 06-16 23:39
PROVIDERS: ADMIT Nurse Practitioner Family; ATTEND Nurse Practitioner
PROC: 0DBN8ZX Excision of Sigmoid Colon, Via Natural or Artificial Opening Endoscopic, Diagnostic (ICD-10-PCS; 2025-06-18)
PROC: 0DB98ZX Excision of Duodenum, Via Natural or Artificial Opening Endoscopic, Diagnostic (ICD-10-PCS; principal; 2025-06-18 13:22)
PROC: 0DB68ZX Excision of Stomach, Via Natural or Artificial Opening Endoscopic, Diagnostic (ICD-10-PCS; 2025-06-18 13:22)
DX: K57.31 Diverticulosis of large intestine without perforation or abscess with bleeding (principal); D64.9 Anemia, unspecified; K64.8 Other hemorrhoids; K29.70 Gastritis, unspecified, without bleeding; K44.9 Diaphragmatic hernia without obstruction or gangrene; E78.5 Hyperlipidemia, unspecified; E66.01 Morbid (severe) obesity due to excess calories; I10 Essential (primary) hypertension; K76.0 Fatty (change of) liver, not elsewhere classified; K63.5 Polyp of colon; J45.909 Unspecified asthma, uncomplicated; F41.9 Anxiety disorder, unspecified; Z88.0 Allergy status to penicillin; Z79.899 Other long term (current) drug therapy; Z98.891 History of uterine scar from previous surgery; Z83.3 Family history of diabetes mellitus; Z82.49 Family history of ischemic heart disease and other diseases of the circulatory system; Z80.0 Family history of malignant neoplasm of digestive organs; Z79.82 Long term (current) use of aspirin
CPT/HCPCS: 36415; 71045; 74177; 80048; 80307; 81001; 82270; 83540; 83550; 85025; 85610; 85730; 86850; 86900; 86901; 93005; 96374; 96375; 99291; G0378; J1756; J2405; J2470; J2704